=== PATIENT | female | born 1960 | race Caucasian/White ===

== ENCOUNTER 2019-08-19 17:00 | Outpatient (CLI) | payer OTHER, SELFPAY ==
--- NOTE | ~2019-08-19 | MR_ITS ---
EXAMINATION: MR lumbar spine wo con DATE: 08/19/2019 17:27 INDICATION: Lumbago. TECHNIQUE: Magnetic resonance imaging (MRI) of the lumbar spine was performed without intravenous con trast. Sequences included sagittal T2-weighted FSE, sagittal T2-weighted FS FSE, sagittal T1-weighted FSE, and axial T2-weighted FSE. COMPARISON: None FINDINGS: There is 10 degrees levoscoliosis of thoracolumbar spine. There is 3 mm anterolisthesis of L4 on L5. There are Schmorl's nodes at many levels. There is moderately decreased disc height at T10- T11 and T11-T12 and mildly decreased disc height at T12-L1, L2-L3, and L4-L5. The distal spinal cord signal intensity is normal. The conus medullaris is at L1-L2. The following disc levels are specifica lly discussed: L1-L2: The disc is mildly bulging. There is mild bilateral facet joint osteoarthritis. There is no ne ural foraminal stenosis. There is mild central canal stenosis. L2-L3: The disc is bulging. There is mild bilateral facet joint osteoarthritis. There is mild bilater al neural foraminal stenosis. There is mild central canal stenosis. L3-L4: The disc is bulging with superimposed right foraminal extrusion. There is mild bilateral facet joint osteoarthritis. There is mild bilateral neural foraminal stenosis. There is mild central canal stenosis. L4-L5: The disc is bulging and has an annular fissure. There is severe bilateral facet joint osteoart hritis. There is mild bilateral neural foraminal stenosis. There is mild central canal stenosis. L5-S1: The disc is bulging. There is mild bilateral facet joint osteoarthritis. There is mild left ne ural foraminal stenosis. There is mild central canal stenosis. IMPRESSION: 1. Mild lumbar spondylosis. Reviewed, dictated and finalized at location A. TABLE LOADER IMPRESSION: 1. Mild lumbar spondylosis.
== END 2019-08-19 17:01 | disposition home or self-care (01) ==
PROVIDERS: PCP Emergency Medicine
DX: M54.5 Low back pain (principal); M47.816 Spondylosis without myelopathy or radiculopathy, lumbar region
CPT/HCPCS: 72148

== ENCOUNTER 2019-09-26 16:15 | Outpatient (RCR) | payer OTHER, SELFPAY ==
--- NOTE | 2019-09-02 17:32 | PTOPEVAL ---
Thank you for referring this patient to [facility]. Please review, sign, date and return this plan of care [place]. Pt seen for initial eval due to back pain. She requires additional skilled therapy 2x/wk x 6 wk to achieve therapy goal and improve functional mobility. I agree with and certify that the following plan of care is medically necessary. Referring Physician Date Attending Provider: PHYSICIAN NOT ON STAFF Referring Provider: LENI Rose *PT Outpatient Evaluation Start: 09/02/19 15:09 Freq: Status: Active Protocol: Document 09/02/19 15:07 RAIMUNDO (Rec: 09/02/19 15:49 CAP [id number]) Therapy Assessment Status Assessment Status Assessment Status Evaluation Outpatient Past Medical History Neurological History Hx Neurological Disorders No Significant History Cardiovascular History Hx Cardiac Disorders No Significant History Respiratory History Hx Respiratory Disorders No Significant History Gastrointestinal History Hx Gastrointestinal Disorders No Significant History Genitourinary History Hx Genitourinary Disorders No Significant History Musculoskeletal History Hx Back Pain Yes: anterolisthesis L4-5 Hx Degenerative Disk Disease Yes: L1-5, L5-S1 Hx Other Musculoskeletal Disorders Yes: neuropathy Hematological History Hx Hematological Disorders No Significant History Endocrine History Hx Diabetes Yes: with neuropathy Hx Hypothyroidism Yes HEENT History Hx HEENT Disorders No Significant History Integumentary History Hx Skin Disorders No Significant History Reproductive History Hx Reproductive Disorders No Significant History Psychosocial History Hx Anxiety Yes Hx Depression Yes Pain History Has Past Pain Affected Your Daily Life Yes Evaluation Information Problem Diagnosis back pain Onset 08/10/19 Cause fall Additional Evaluation Detail She has a history of back pain She fell on the ice 2 years ago landing her right knee, sprained her left ankle 3 years ago and then fractured 2 years ago. Subjective Information She reports she has had pain Query Text:As Reported By Patient/ since 08/08 when she fell at Family work. She was changing out of her costume when she tripped and fell on her knees 3 times. She landed on her knees that has caused increased right knee pain. She had fluid asperated from her right knee
--- NOTE | 2019-09-05 09:38 | PCPTNOTE ---
Patient called & cancelled scheduled appointment this date due to increase pain
--- NOTE | 2019-09-19 16:19 | PCPTNOTE ---
Patient called & cancelled scheduled appointment this date due to being sick.
--- NOTE | 2019-09-21 17:31 | PCPTNOTE ---
Patient arrived to therapy appointment 25mintue late reporting she was in so much pain but didn't want to miss appointment due to cancelling Thursday's appointment due to increase pain again. Sat and talked to patient for 15minutes about situation educating her on injection process she was receiving tomorrow with the doctor and answered questions the patient had about appointment. Therapist cancelled appointment due to the patient arriving late due to policy and patients pain level. Informed patient to not hesitate to call before driving to appointment when in extreme pain for safety.
--- NOTE | 2019-09-30 14:11 | PCPTNOTE ---
Patient called & cancelled scheduled appointment this date due to flat tire. She rescheduled her re-eval.
--- NOTE | 2019-10-14 12:47 | PCPTNOTE ---
Patient did not show up for scheduled appointment this date. This is her 5th missed appointment.
--- NOTE | 2019-10-18 13:44 | PCPTNOTE ---
Admitting Provider: RACHAEL Rose Attending Provider: PHYSICIAN NOT ON STAFF Patient:Caryn Jeffrey Date of :1960 Patient has not returned for any further treatments since 09/26/2019, therefore she will be discharged from therapy at this time. She attended 5 visits from 09/02/19-10/18/19 and missed 5 visits. The goals have not been achieved. Thank you for referring this patient to [facility]. Please review, sign, date and return this discharge summary [place]. I have been updated about the patient's current status and I agree with discharge from the above service at this time. Referring Physician Date
== END 2019-10-19 10:43 | disposition home or self-care (01) ==
LOC: ANHPT 16:15
PROVIDERS: PCP Emergency Medicine
DX: M54.5 Low back pain (principal)
CPT/HCPCS: 97014; 97110; 97140; 97163; 97530; G0283

== ENCOUNTER 2019-11-15 21:16 | Observation (INO) | payer OTHER, SELFPAY ==
--- NOTE | ~2019-11-15 | CT_ITS ---
EXAMINATION: CT brain wo con EXAM DATE: 11/15/2019 22:16 INDICATION: Syncope. TECHNIQUE: Spiral CT of the head was performed without contrast. Axial, coronal and sagittal images were reviewed. The dose-length product (DLP) for this examination was 605.33 mGy-cm. The exposure w as tailored according to patient size, and iterative reconstruction (ASIR) was used as additional dos e reduction technique. There is no prior study for comparison. FINDINGS: There is an old right caudate head, internal capsular lacunar infarction. There is no acute intraparenchymal hemorrhage. No evidence of intraparenchymal brain mass lesion. No evidence of acu te infarction. Please note that initial head CT has limited sensitivity for small or acute infarctio ns. There is mild periventricular and subcortical hypodensity, nonspecific but probably related to small vessel ischemic disease. There is mild prominence of the sulci and ventricles related to cere bral atrophy. There is intracranial carotid arteriosclerosis. There are no extra-axial collections . There is no mass effect or midline shift. The orbits are unremarkable. Soft tissue is unremarkab le. The visualized sinuses and mastoid air cells are well aerated. IMPRESSION: 1. No acute intracranial findings. 2. Chronic age related findings. 3. Old right lacunar infarction. Reviewed, dictated and finalized at location .
--- NOTE | ~2019-11-15 | US_ITS ---
EXAMINATION: US carotid duplex BI DATE: 11/16/2019 09:37 INDICATION: Syncope. TECHNIQUE: Grayscale, color Doppler, and pulsed Doppler images of the cervical carotid arteries were obtained. The degree of vessel stenosis is placed in one of the following categories: normal, <50%, 5 0-69%, >=70% but less than near-occlusion, near-occlusion, or total occlusion. Note that percent sten osis relative to normal distal artery lumen diameter is indirectly measured from velocity measurement s as described by Harpal, et al. Radiology 2003; 229:340-346. COMPARISON: None. FINDINGS: RIGHT: The right common carotid artery (CCA) peak systolic velocity (PSV) is 70 cm/s. The right internal car otid artery (ICA) PSV is 99 cm/s. The right ICA end-diastolic velocity (EDV) is 33 cm/s. The right IC A/CCA PSV ratio is 1.4. Grayscale and color Doppler images yield an estimate of <50% diameter reducti on from plaque in the ICA. There is antegrade flow in the right vertebral artery. LEFT: The left CCA PSV is 94 cm/s. The left ICA PSV is 152 cm/s. The left ICA EDV is 47 cm/s. The left ICA/ CCA PSV ratio is 1.6. Grayscale and color Doppler images yield an estimate of <50% diameter reduction from plaque in the ICA. There is antegrade flow in the left vertebral artery. IMPRESSION: 1. <50% stenosis in the right internal carotid artery. 2. <50% stenosis in the left internal carotid artery. Reviewed, dictated and finalized at location A.
--- NOTE | ~2019-11-15 | XR_ITS ---
EXAMINATION: XR hand LT 2V EXAM DATE: 11/15/2019 22:19 INDICATION: No known recent injury provided at this time. Pain of the left hand, fifth digit. TECHNIQUE: Left hand frontal, lateral projections obtained and reviewed. There is no prior study for comparison. FINDINGS: Left metacarpal bones are unremarkable. There are no acute fractures or dislocations ident ified. There is no subcutaneous gas. The soft tissue is unremarkable. IV, no other foreign bodies . IMPRESSION: No acute osseous findings. Reviewed, dictated and finalized at location G. IMPRESSION: No acute osseous findings.
--- NOTE | ~2019-11-15 | XR_ITS ---
EXAMINATION: XR chest 1V portable DATE: 11/16/2019 05:55 INDICATION: Near syncope. TECHNIQUE: A single frontal view of the chest was obtained. COMPARISON: None. FINDINGS: There is mild atelectasis at left lung base. No pleural effusion or pneumothorax. The heart size is normal. IMPRESSION: 1. Mild atelectasis at left lung base. Reviewed, dictated and finalized at location A.
[2019-11-15 21:17] VITALS: BP 109/64; PULSE 61; RESP 20; TEMP 37.1; O2SAT 98
[2019-11-15 21:30] VITALS: PULSE 61
--- NOTE | 2019-11-15 21:37 | ECG_ITS ---
Measurements Intervals [place] Rate: 46 P: 23 [place]: 112 QRS: 46 QRSD: 88 T: 235 QT: 492 QTc: 434 Interpretive Statements SINUS BRADYCARDIA WITH SHORT TX INTERVAL ST-T WAVE ABNORMALITY IN DIFFUSE LEADS- CONSIDER ISCHEMIA BASELINE ARTIFACT- I, II, III, AVR, AVF ABNORMAL ECG Electronically Signed On 11-16-2019 7:20:56 CDT by Jam Fung D.O.
--- NOTE | 2019-11-15 21:39 | ED.DIZZY ---
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 Pt states she fell and hit her lip and left hand on a hand rail. Pt states she was able to get up and walk after the fall. Denies head, neck, chest, abd, back, pelvis or any other extremity pain/injury. Pt currently denies any dizziness, only c/o pain on her left hand and lip. Exacerbating factors: nothing Relieving factors: nothing Associated symptoms: denies other symptoms Related Data Home Medications Medication Instructions Recorded Confirmed metformin 500 mg tablet See Rx Instructions PO BID 08/09/19 11/16/19 meloxicam 7.5 mg PO DAILY 11/16/19 11/16/19 tizanidine 4 mg PO TID 11/16/19 11/16/19 Allergies Allergy/AdvReac Type Severity Reaction Status Date / Time hydrocodone Allergy Unknown Unknown Verified 11/15/19 21:33 Penicillins Allergy Unknown Rash Verified 11/15/19 21:33 Review of Systems Review of Systems: All systems reviewed & are unremarkable except as noted in HPI and below Constitutional: Constitutional: Denies body ache(s), Denies chills, Denies excessive sweating, Denies fatigue, Denies fever(s), Denies headache(s), Denies lethargy, Denies malaise, Denies weakness and Denies weight loss Eyes: Eyes: Denies blurry vision, Denies change in vision and Denies loss of vision ENT: Denies dizziness, Denies ear discharge, Denies headache(s), Denies epistaxis, Denies nasal congestion, Denies neck pain, Denies throat swelling and Denies tongue swelling Cardiovascular: Cardiovascular: Denies chest pain, Denies chest pain at rest, Denies chest pain with activity, Denies diaphoresis, Denies rapid heart rate, Denies edema, Denies irregular heart rhythm, Denies lightheadedness, Denies palpitations, Denies dyspnea and Denies dyspnea on exertion Respiratory: Respiratory: Denies chest congestion, Denies cough, Denies hemoptysis, Denies dyspnea and Denies dyspnea on exertion Gastrointestinal: Gastrointestinal: Denies abdominal pain, Denies melena, Denies hematochezia, Denies diarrhea, Denies nausea, Denies vomiting and Denies hematemesis Musculoskeletal: Musculoskeletal: Denies abnormal gait, Denies deformity, Denies joint swelling, Denies limited range of motion, Denies neck pain and Denies numbness Neurologic: Denies Abnormal speech present, Denies abnormal gait, Denies confusion, Denies headache(s), Denies focal weakness, Denies loss of vision, Denies numbness, Denies Other visual disturbances, Denies Sensory deficit (Neuro) and Denies weakness Psychiatric: Psychiatric: Denies confusion, Denies depression, Denies auditory hallucinations, Denies homicidal ideation and Denies suicidal ideation Endocrine: Endocrine: Denies cold intolerance, Denies excessive sweating, Denies fatigue, Denies heat intolerance and Denies palpitations Hematologic/Lymphatic: Hematologic/Lymphatic: Denies easy bleeding and Denies easy bruising Allergic/Immunologic: Allergic/Immunologic: Denies lip swelling, Denies throat swelling and Denies tongue swelling PMFSH Social History Social History Smoking packs per day: 0.25 Smoking cigarettes per day: 5.0 Years smoked: 35 Smoking pack-years: 8.75 Smoking status: Current every day smoker Tobacco type: cigarettes Smoking end date: 07/20/16 Alcohol intake: never Substance use: never Gender identity (if verbalized by the patient): Female Spiritual care concerns: No Agree to blood products: Yes Exam Const: General: cooperative, healthy appearing, comfortable, no acute distress, well developed, alert and awake; No confusion Orientation/consciousness: oriented to person, oriented to place, oriented to time, patient oriented x3 and No confusion Limitations: n
[2019-11-15 22:16] LABS: Basophils Absolute Auto 0.1 K/mm3 (0.0-0.1); Basophils Percent Auto 0.8 % (0.2-1.2); Eosinophils Absolute Auto 0.3 K/mm3 (0-0.3); Eosinophils Percent Auto 4.8 % (0-4.4); Hematocrit 40.2 % (37.0-47.0); Hemoglobin 13.6 g/dL (12.0-15.0); Immature Granulocyte Absolute 0.02 K/mm3 (0.00-0.031); Immature Granulocyte Percent A 0.3 % (0-0.5); Immature Platelet Fraction Pct 5.9 % (0.9-11.2); Lymphocytes Percent Auto 30.9 % (18.3-44.2); Mean Corpuscular HGB Conc 33.8 g/dl (32-36); Mean Corpuscular Hemoglobin 32.9 pg (26-34); Mean Corpuscular Volume 97.3 fl (80-100); Mean Platelet Volume 11.1 fl (7.4-10.4); Monocytes Absolute Auto 0.8 K/mm3 (0.1-0.6); Monocytes Percent Auto 10.5 % (2.6-8.5); Neutrophils Absolute Auto 3.8 K/mm3 (1.3-6.7); Neutrophils Percent Auto 52.7 % (45.5-73.1); Platelet Count Result 109 k/mm3 (150-375); Red Blood Count 4.13 M/mm3 (4.2-5.4); Red Cell Distribution Width 13.6 % (11.5-14.5); White Blood Count 7.1 K/mm3 (4.5-10.0)
[2019-11-15 22:25] LABS: INR 1.2; Prothrombin Time 14.5 Seconds (11.1-14.7)
[2019-11-15 22:26] LABS: Partial Thromboplastin Time 30.7 SECONDS (22.3-36.8)
[2019-11-15 22:30] LABS: Blood Urea Nitrogen 29 mg/dL (7-17); Carbon Dioxide 26 mmol/L (22-30); Chloride 94 mmol/L (98-107); Estimated CRCL calculation 27 ml/min; Estimated Glomerular Filt Rate 26; Glucose 362 mg/dL (65-105); Potassium 4.5 mmol/L (3.4-5.0); Sodium 130 mmol/L (137-145)
[2019-11-15 22:42] LABS: Troponin I 0.024 ng/mL (0.000-0.034)
[2019-11-15] MEDS: TETANUS,DIPHTHERIA,AC PERTUSSIS ADULT (0.5 ML) BOOSTRIX (23:09)
[2019-11-16] VITALS (11 sets, daily range): BP systolic 96–133; BP diastolic 54–78; PULSE 50–70; RESP 13–20; TEMP 36.1–36.7; O2SAT 97–100; BMI 28.9; BMI 30.4; BMI 29.1
[2019-11-16] MEDS: SODIUM CHLORIDE 0.9% IV 1,000 ML 999 ML IV CONT (00:30)
[2019-11-16 02:06] LABS: Troponin I 0.025 ng/mL (0.000-0.034)
--- NOTE | 2019-11-16 02:13 | ECG_ITS ---
Measurements Intervals [place] Rate: 52 P: 28 [place]: 124 QRS: 16 QRSD: 90 T: 164 QT: 453 QTc: 423 Interpretive Statements SINUS BRADYCARDIA LEFT VENTRICULAR HYPERTROPHY AND ST-T CHANGE ST-T WAVE ABNORMALITY IN ANTEROLAT/LAT LEADS- CONSIDER ISCHEMIA BASELINE ARTIFACT- I, II, AVR, AVL, AVF ABNORMAL ECG Electronically Signed On 11-16-2019 9:58:57 CDT by Jam Fung D.O.
--- NOTE | 2019-11-16 02:52 | ECHO_ITS ---
Patient Info Name: Caryn Jeffrey Age: 59 years : 1960 Gender: Female Ht: 64 in Wt: 177 lbs BSA: 1.93 m2 HR: 60 bpm BP: 133 / 73 mmHg Heart Rhythm: Bradycardia Technical Quality: Good Exam Date: 11/16/2019 9:53 AM Exam Location: [facility] Patient Status: Inpatient Admit Date: 11/16/2019 Staff Ordering Physician: Edgar Flaherty MD Core Man: Cristiano Marte RDCS Attending Provider: Edgar Flaherty MD Referring Physician: Reynold MATTHEWS; Exam Type: CA echo doppler color flow Study Info Indications R55 - Syncope and collapse R00.1 - Bradycardia, unspecified Complete two-dimensional, color flow and Doppler transthoracic echocardiogram is performed. History/Risk Factors Bradycardia w/ near syncope; CKD III, DM2, HTN. Summary 1. Left ventricular chamber dimension is normal. 2. Left ventricular systolic function is normal, estimated at 65-70%. 3. There is moderate asymmetric septal increased left ventricular wall thickness at 1.6 cm compared to posterior wall thickness at 1.2 cm suggestive of hypertrophic cardiomyopathy. 4. The left ventricular diastolic function is grade I diastolic dysfunction. 5. E/e' 9 is minimally elevated. 6. There is mild aortic valve sclerosis. 7. The mitral valve has mildly calcified annulus. Left Ventricle There is moderate asymmetric septal increased left ventricular wall thickness at 1.6 cm compared to posterior wall thickness at 1.2 cm suggestive of hypertrophic cardiomyopathy. E/e' 9 is minimally elevated. Left ventricular chamber dimension is normal. Left ventricular systolic function is normal, estimated at 65-70%. The left ventricular diastolic function is grade I diastolic dysfunction. Right Ventricle Right ventricular chamber dimension is normal. Right ventricular systolic function is normal. Left Atria Left atrial chamber dimension is normal. Right Atria Right atrial chamber dimension is normal. Aortic Valve The aortic valve is trileaflet. There is mild aortic valve sclerosis. There is no aortic valve stenosis. There is no aortic valve regurgitation. Pulmonic Valve There is no pulmonic regurgitation. Mitral Valve The mitral valve has mildly calcified annulus. There is no mitral valve stenosis. There is no mitral valve regurgitation. Tricuspid Valve There is no tricuspid valve regurgitation. Pericardium/Pleural There is trivial pericardial effusion. Inferior Vena Cava Normal inferior vena cava with >50% collapse upon inspiration consistent with normal right atrial pressure, 5 mmHg. Aorta The aortic root size at the sinus of Valsalva is normal. Left Ventricular Outflow Tract Name Value Normal LVOT 2D LVOT Diameter 1.9 cm LVOT Doppler LVOT Peak Gradient 6 mmHg LVOT Mean Gradient 3 mmHg LVOT VTI 21 cm LVOT VTI/AV VTI Ratio 0.6 LVOT Stroke Volume 58 ml LVOT CO 3.7 l/min LVOT CI 1.9 l/mi
[2019-11-16 04:41] LABS: Basophils Percent Auto 0.7 % (0.2-1.2); Eosinophils Absolute Auto 0.3 K/mm3 (0-0.3); Eosinophils Percent Auto 5.9 % (0-4.4); Hematocrit 38.2 % (37.0-47.0); Hemoglobin 12.7 g/dL (12.0-15.0); Immature Granulocyte Absolute 0.01 K/mm3 (0.00-0.031); Immature Granulocyte Percent A 0.2 % (0-0.5); Immature Platelet Fraction Pct 6.6 % (0.9-11.2); Lymphocytes Absolute Auto 1.94 K/mm3 (0.9-3.2); Lymphocytes Percent Auto 33.6 % (18.3-44.2); Mean Corpuscular HGB Conc 33.2 g/dl (32-36); Mean Corpuscular Hemoglobin 32.8 pg (26-34); Mean Corpuscular Volume 98.7 fl (80-100); Mean Platelet Volume 11.6 fl (7.4-10.4); Monocytes Absolute Auto 0.7 K/mm3 (0.1-0.6); Monocytes Percent Auto 11.3 % (2.6-8.5); Neutrophils Absolute Auto 2.8 K/mm3 (1.3-6.7); Neutrophils Percent Auto 48.3 % (45.5-73.1); Platelet Count Result 91 k/mm3 (150-375); Red Blood Count 3.87 M/mm3 (4.2-5.4); Red Cell Distribution Width 13.7 % (11.5-14.5); White Blood Count 5.8 K/mm3 (4.5-10.0)
[2019-11-16 04:56] LABS: Blood Urea Nitrogen 33 mg/dL (7-17); Calcium 8.6 mg/dL (8.4-10.2); Carbon Dioxide 29 mmol/L (22-30); Chloride 93 mmol/L (98-107); Estimated CRCL calculation 27 ml/min; Estimated Glomerular Filt Rate 24; Glucose 419 mg/dL (65-105); Magnesium 1.7 mg/dL (1.6-2.3); Potassium 4.2 mmol/L (3.4-5.0); Sodium 130 mmol/L (137-145)
[2019-11-16 05:03] LABS: Troponin I 0.021 ng/mL (0.000-0.034)
--- NOTE | 2019-11-16 05:25 | PM.IMHP ---
H&P: HPI History of Present Illness Chief complaint: Near Syncope, Bradycardia Narrative: This is a pleasant 59 year old Diabetic female with known history of HTN, depression, and hypothyroidism who presented to the hospital with a complaint of near syncope and falling at home. She reports that she has chronic back pain secondary to bulging discs and has been going to the pain clinic to get treatment for same. She was walking yesterday when suddenly she felt very dizzy like she was going to pass out. She immediately reached out to grab a railing but missed it and fell forward. The next thing she knew she was face down on the ground. She struck her face and left hand on the railing on the way down. She doesn't believe that she actually passed out and denies any tongue biting or loss of urine. She denies any chest pain or shortness of breath before falling. She had a similar episode of falling the day before while ambulating but did not seek medical attention at that time. She denies any history of heart disease or arrythmias. In the ER this evening the patient was evaluated and found to have sinus bradycardia with her heart rate in the 50s. Her upper lip was glued in the ER tonight as she sustained a laceration on falling. ER provider has consulted Cardiology, Dr. Fung. EKG demonstrated Sinus bradycardia w/ short CO interval and flipped T waves in lateral-inferior leads. Tonight she denies any significant chest pain, shortness of breath, fevers, cough, blurry vision, double vision, slurred speech, swallowing difficulty, abdominal pain, dysuria, hematuria, nausea, vomiting, diarrhea, or rectal bleeding. She does report that she has had a recent bout of shingles on the right side of her chest wall. No other complaints. Review of Systems Review of Systems: All systems reviewed & are unremarkable except as noted in HPI and below PMFSH Past Medical History Medical History (Updated 11/16/19 @ 05:47 by Edgar Flaherty MD) Chronic kidney disease Chronic low back pain CKD stage 3 due to type 2 diabetes mellitus Depression Diabetes mellitus HTN (hypertension) with goal to be determined Hypothyroidism PVD (peripheral vascular disease) Surgical History Surgical History (Updated 11/16/19 @ 05:35 by Edgar Flaherty MD) History of vascular surgery Family History Family History (Updated 11/16/19 @ 05:35 by Edgar Flaherty MD) Mother Breast cancer Other Family history of chronic obstructive pulmonary disease Family history of malignant neoplasm Social History Social History Smoking packs per day: 0.25 Smoking cigarettes per day: 5.0 Years smoked: 35 Smoking pack-years: 8.75 Smoking status: Current every day smoker Tobacco type: cigarettes Smoking end date: 07/20/16 Alcohol intake: never Substance use: never Gender identity (if verbalized by the patient): Female Spiritual care concerns: No Agree to blood products: Yes Meds Home Medications and Allergies Home Medications Medication Instructions Recorded Confirmed Type fluticasone propionate 50 2 spray NASAL DAILY #50 ml NS 05/20/19 11/16/19 Rx mcg/actuation nasal spray,suspension albuterol sulfate 2 puff INHALATION QID #6.7 gm 07/18/19 11/16/19 Rx metformin 500 mg tablet See Rx Instructions PO BID 08/09/19 11/16/19 History citalopram 20 mg tablet See Rx Instructions .ROUTE 09/16/19 11/16/19 Rx .COMPLEX #30 tablet gabapentin 300 mg capsule See Rx Instructions .ROUTE 10/04/19 11/16/19 Rx .COMPLEX #270 cap levothyroxine 125 mcg tablet 125 mcg PO DAILY #30 tablet 10/13/19 11/16/19 Rx tramadol 50 mg tablet 50 mg PO Q6H PRN #20 tablet 10/26/19 11/16/19 Rx meloxicam 7.5 mg PO DAILY 11/16/19 11/16/19 History tizanidine 4 mg PO TID 11/16/19 11/16/19 History Allergies Allergy/AdvReac Type Severity Reaction Status Date / Time hydrocodone Allergy Unknown Unknown Verified 11/15/19 21:
[2019-11-16] MEDS: ALBUTEROL SULFATE (*SP) AEROSOL 1 PUFF 2 PUFF INHALATION (06:20)
[2019-11-16] MEDS: ACETAMINOPHEN 325 MG TABLET 650 MG PO (06:41)
[2019-11-16] MEDS: SODIUM CHLORIDE 0.9% IV 1,000 ML 100 ML IV CONT (06:41)
--- NOTE | 2019-11-16 08:22 | PM.CNCAR ---
Assessment and Plan Assessment and plan (1) Tobacco dependence: Code(s): F17.200 - Nicotine dependence, unspecified, uncomplicated Status: Acute Assessment and Plan: Counseled regarding smoking cessation. (2) CKD stage 3 due to type 2 diabetes mellitus: Code(s): E11.22 - Type 2 diabetes mellitus with diabetic chronic kidney disease; N18.3 - Chronic kidney disease, stage 3 (moderate) Status: Chronic Assessment and Plan: CKD stage III-IV. (3) PVD (peripheral vascular disease): Code(s): I73.9 - Peripheral vascular disease, unspecified Status: Chronic (4) Near syncope: Code(s): R55 - Syncope and collapse Status: Acute Assessment and Plan: Probably orthostatic related in setting of low normal BP on pain medications, caffeine intake and in standing position. Advise to keep well hydrated. Continue telemetry monitoring for next 24 hours. Obtain echo. Will need 30 day event monitor as an outpatient. (5) Bradycardia: Code(s): R00.1 - Bradycardia, unspecified Status: Acute History of Present Illness History of Present Illness Consult date/time: 11/16/19 08:22 Reason for consult: Near-syncope 59 yr old woman with a history of PAD s/p PTCA of left leg with Dr. Yung Santana in 2018, DM, smoking who presents to hospital after a near syncopal episode with fall. She was walking yesterday when suddenly she felt very dizzy like she was going to pass out. She immediately reached out to grab a railing but missed it and fell forward. The next thing she knew she was face down on the ground. She struck her face and left hand and right knee on the railing on the way down. She had dizziness just prior to the event. She doesn't believe that she actually passed out and denies any tongue biting or loss of urine. She denies any chest pain or shortness of breath before falling. She had a similar episode of falling last week but did not hurt herself in the fall while ambulating. She smokes 1 ppd down to just less than 1/2 ppd recently. States she is limited at walking 1 block due to bulging discs causing lower back pain radiating down her legs. She has been treated with Meloxicam, Tramadol and Tizanidine for pain at pain clinic. Denies chest pain, sob, orthopnea, edema. No dizziness currently. Telemetry shows HR is OK in 50's-60 bpm range. BP was low on presentation at 95 systolic. [address]KG showed some ST abnormalities with HR 46 bpm. She drinks 3 cups of coffee and 3 glasses of water a day. She admits to dizziness while standing or walking in the past. Reason For Visit: Near Syncope, Bradycardia Review of Systems Review of Systems: All systems reviewed & are unremarkable except as noted in HPI and below Constitutional: Constitutional: Reports as per HPI, Denies chills and Denies fatigue Cardiovascular: Cardiovascular: Reports as per HPI, Denies chest pain, Denies leg edema and Reports lightheadedness Respiratory: Respiratory: Reports as per HPI and Denies dyspnea Gastrointestinal: Gastrointestinal: Reports as per HPI and Denies abdominal pain Genitourinary: Genitourinary: Reports as per HPI and Denies dysuria Neurologic: Reports as per HPI and Denies Abnormal speech present [facility] Past Medical History Medical History (Updated 11/16/19 @ 05:47 by Edgar Flaherty MD) Chronic kidney disease Chronic low back pain CKD stage 3 due to type 2 diabetes mellitus Depression Diabetes mellitus HTN (hypertension) with goal to be determined Hypothyroidism PVD (peripheral vascular disease) Surgical History Surgical History (Updated 11/16/19 @ 05:35 by Edgar Flaherty MD) History of vascular surgery Family History Family History (Updated 11/16/19 @ 05:35 by Edgar Flaherty MD) Mother Breast cancer Other Family history of chronic obstructive pulmonary disease Family history of malignant neoplasm Social History Social History (Reviewed 11/16/19 @ 05:34 by Edgar Salazar
[2019-11-16 08:45] LABS: Glucose Point of Care 422 (65-105)
[2019-11-16] MEDS: INSULIN ASPART (*BKC) 100 UNITS/ML 10 UNITS SUB-Q (08:52)
[2019-11-16] MEDS: LEVOTHYROXINE SODIUM 125 MCG TABLET PO (08:54)
[2019-11-16] MEDS: FLUTICASONE PROPIONATE 0.05% NA SPR 16 GM BTL (*BKC) 2 SPRAY NASAL (08:54)
--- NOTE | 2019-11-16 10:14 | PM.IMPN ---
Subjective Date/time seen: 11/16/19 10:14 Interval history: Admitted 11/14 due to dizziness followed by brief syncope during which she fell and lacerated upper lip. Also abrasion right knee. 11/15 Only complaint at present is discomfort in the right knee. History of osteoarthritis. History of sciatica in the right leg. History of bulging disc lumbar. Review of Systems Review of Systems: All systems reviewed & are unremarkable except as noted in HPI and below Objective Data Vital Signs Vital Signs: Vital Signs - 24 hr 11/15/19 21:17 11/15/19 21:30 11/16/19 00:35 Temperature 98.8 F Pulse Rate 61 61 50 L Respiratory Rate 20 13 Blood Pressure 109/64 96/66 L Pulse Oximetry 98 98 11/16/19 01:10 11/16/19 04:00 11/16/19 07:43 Temperature 98.0 F 98.0 F 96.9 F L Pulse Rate 59 L 56 L 65 Respiratory Rate 20 20 16 Blood Pressure 106/65 120/68 133/73 Pulse Oximetry 100 97 98 11/16/19 08:50 11/16/19 08:53 11/16/19 08:54 Temperature 96.9 F L Pulse Rate 57 L Respiratory Rate Blood Pressure 131/78 127/78 112/68 Pulse Oximetry 99 Intake/Output Intake/Output: Intake & Output 11/13/19 11/14/19 11/15/19 11/16/19 23:59 23:59 23:59 23:59 Intake Total 100 740 Balance 100 740 Meds/Results Medications: Active Medications Generic Name Dose Route Start Last Admin Trade Name Freq PRN Reason Stop Dose Admin Acetaminophen 650 mg 11/16/19 02:50 11/16/19 06:41 Tylenol Tablet PO 650 mg Q4H PRN Administration Mild Pain (1-3) or Fever Albuterol 2 puff 11/16/19 08:00 11/16/19 06:20 Proventil Hfa INHALATION 2 puff QIDRT BRAYAN Administration Dextrose 12.5 gm 11/16/19 02:51 Dextrose 50% Syringe IV PUSH PRN PRN Hypoglycemia Protocol Fluticasone Propionate 2 spray 11/16/19 09:00 11/16/19 08:54 Flonase 0.05% Nasal [place] NASAL 2 spray DAILY BRAYAN Administration Glucagon 1 mg 11/16/19 02:51 Glucagon For Inj IM PRN PRN Hypoglycemia Protocol Glucose 15 gm 11/16/19 02:51 Glutose 15 PO PRN PRN Hypoglycemia Protocol Sodium Chloride 1,000 mls @ 100 mls/hr 11/16/19 02:50 11/16/19 06:41 Normal Saline Iv IV CONT 100 mls/hr .Q10H BRAYAN Administration Dextrose 1,000 mls @ 100 mls/hr 11/16/19 02:51 Dextrose 5% 1,000 Ml IVPB PRN PRN Hypoglycemia Protocol Insulin Aspart 3 - 6 units 11/16/19 12:00 Novolog SUB-Q TIDWM BRAYAN Protocol Levothyroxine Sodium 125 mcg 11/16/19 06:30 11/16/19 08:54 Synthroid PO 125 mcg DAILY@0630 BRAYAN Administration Radiology Results: ITS Impressions Head CT 11/15/19 22:25 IMPRESSION: 1. No acute intracranial findings. 2. Chronic age related findings. 3. Old right lacunar infarction. Hand X-Ray 11/15/19 22:27 IMPRESSION: No acute osseous findings. Chest X-Ray 11/16/19 06:43 IMPRESSION: 1. Mild atelectasis at left lung base. Carotid Doppler Study 11/16/19 09:38 IMPRESSION: 1. <50% stenosis in the right internal carotid artery. 2. <50% stenosis in the left internal carotid artery. Labs Labs: Laboratory Results - last 24 hr 11/15/19 11/15/19 11/15/19 22:06 22:06 22:06 WBC 7.1 RBC 4.13 L Hgb 13.6 Hct 40.2 MCV 97.3 MCH 32.9 MCHC 33.8 RDW 13.6 Plt Count 109 L MPV 11.1 H Immature Gran % (Auto) 0.3 Neut % (Auto) 52.7 Lymph % (Auto) 30.9 Turner % (Auto) 10.5 H Eos % (Auto) 4.8 H Baso % (Auto) 0.8 Lymph # (Auto) 2.20 Turner # (Auto) 0.8 H Eos # (Auto) 0.3 Baso # (Auto) 0.1 Abs Immat Gran (auto) 0.02 Absolute Neuts (auto) 3.8 Absolute Nucleated RBC 0.0 Nucleated RBC % 0.0 % Immature Plt Fraction 5.9 PT 14.5 INR 1.2 APTT 30.7 Sodium 130 L Potassium 4.5 Chloride 94 L Carbon Dioxide 26 BUN 29 H Creatinine 2.00 H Estim Creat Clear Calc 27 Estimated GFR 26 L Gluco
[2019-11-16 11:32] LABS: Glucose Point of Care 388 (65-105)
[2019-11-16] MEDS: CITALOPRAM HYDROBROMIDE 20 MG TABLET BY MOUTH (12:06)
[2019-11-16] MEDS: INSULIN ASPART (*BKC) 100 UNITS/ML SUB-Q (12:06)
--- NOTE | 2019-11-16 13:53 | PC.NURSE ---
Pat was transferred from Room 200 to room 259. Patient alert and oriented resting in bed with no complaints at this time. Will continue to monitor patient.
--- NOTE | 2019-11-16 15:14 | PM.DS ---
DS: Diagnosis Admitting Diagnosis Admitting Diagnosis: Syncope and collapse Discharge Diagnosis (1) Near syncope: Code(s): R55 - Syncope and collapse Status: Acute Assessment and Plan: Likely due to medications Cardiac arrhythmia unlikely 30 day monitor Take meds with food (2) Symptomatic bradycardia: Code(s): R00.1 - Bradycardia, unspecified Status: Acute Assessment and Plan: Unlikely the cause of her syncope (3) CKD stage 3 due to type 2 diabetes mellitus: Code(s): E11.22 - Type 2 diabetes mellitus with diabetic chronic kidney disease; N18.3 - Chronic kidney disease, stage 3 (moderate) Status: Chronic Assessment and Plan: Stable. Cr. appears to be at baseline. Monitor renal function, Avoid nephrotoxic agents, renally dose medications. (4) Diabetes mellitus: Qualifiers: Chronic kidney disease stage: stage 3 (moderate) Diabetes mellitus complication detail: with chronic kidney disease Diabetes mellitus complication status: with kidney complications Diabetes mellitus chcf insulin use: without intermediate accountant use Diabetes mellitus type: type 2 Qualified Code(s): E11.22 - Type 2 diabetes mellitus with diabetic chronic kidney disease; N18.3 - Chronic kidney disease, stage 3 (moderate) Code(s): E11.9 - Type 2 diabetes mellitus without complications Status: Chronic Assessment and Plan: Accuchecks, SSI coverage. Hypoglycemic protocol while hospitalized Januvia 50 mg daily upon discharge (5) Hypothyroidism: Qualifiers: Hypothyroidism type: unspecified Qualified Code(s): E03.9 - Hypothyroidism, unspecified Code(s): E03.9 - Hypothyroidism, unspecified Status: Chronic Assessment and Plan: Continue levothyroxine. WNL TSH w/ reflex T4. (6) HTN (hypertension) with goal to be determined: Code(s): I10 - Essential (primary) hypertension Status: Chronic Assessment and Plan: Stable. Monitor blood pressure. The patient is not currently on any antihypertensive medications. (7) Depression: Qualifiers: Depression Type: unspecified Qualified Code(s): F32.9 - Major depressive disorder, single episode, unspecified Code(s): F32.9 - Major depressive disorder, single episode, unspecified Status: Chronic Assessment and Plan: Resume celexa when appropriate. (8) PVD (peripheral vascular disease): Code(s): I73.9 - Peripheral vascular disease, unspecified Status: Chronic Assessment and Plan: stable. (9) Shingles: Qualifiers: Herpes zoster complications: without complications Qualified Code(s): B02.9 - Zoster without complications Code(s): B02.9 - Zoster without complications Status: Resolved Assessment and Plan: Resolving - Rash is now dried. Continue pain control as needed. (10) Back pain: Qualifiers: Back pain laterality: right Back pain location: low back pain Chronicity: acute Sciatica laterality: bilateral sciatica Sciatica presence: with sciatica Qualified Code(s): M54.42 - Lumbago with sciatica, left side; M54.41 - Lumbago with sciatica, right side Code(s): M54.9 - Dorsalgia, unspecified Status: Chronic Assessment and Plan: Resume home pain medications (11) Tobacco dependence: Code(s): F17.200 - Nicotine dependence, unspecified, uncomplicated Status: Acute Assessment and Plan: Pt aware of need to quit DS: Summary Time Spent with Patient Time attestation: Total time spent providing and/or coordinating discharge services: 38 min Exam Const: General: cooperative, no acute distress, alert and awake Nutritional Appearance: overweight Orientation/consciousness: patient oriented x3 HENMT: Head: normal to inspection General nose exam: Normal external nose present Face and sinus: normal facial exam Mouth: No lip normal (Laceration of upper lip++) and
== END 2019-11-16 16:05 | disposition home or self-care (01) ==
LOC: ANHED 11-16 00:21 → ANHIMU 11-16 01:21 → ANH2MED 11-16 15:17 → ANHIMU 11-18 10:53
PROVIDERS: Admitting Provider Family Medicine; Emergency Provider Emergency Medicine; PCP Emergency Medicine; Visit Provider Internal Medicine
DX: R55 Syncope and collapse (principal); S01.511A Laceration without foreign body of lip, initial encounter; W19.XXXA Unspecified fall, initial encounter; R00.1 Bradycardia, unspecified; E11.22 Type 2 diabetes mellitus with diabetic chronic kidney disease; I12.9 Hypertensive chronic kidney disease with stage 1 through stage 4 chronic kidney disease, or unspecified chronic kidney disease; N18.3 Chronic kidney disease, stage 3 (moderate); E11.51 Type 2 diabetes mellitus with diabetic peripheral angiopathy without gangrene; E03.9 Hypothyroidism, unspecified; F17.210 Nicotine dependence, cigarettes, uncomplicated; F32.9 Major depressive disorder, single episode, unspecified; B02.9 Zoster without complications; M54.42 Lumbago with sciatica, left side; M54.41 Lumbago with sciatica, right side; Z23 Encounter for immunization; Z79.84 Long term (current) use of oral hypoglycemic drugs; Z79.899 Other long term (current) drug therapy
CPT/HCPCS: 12011; 36415; 70450; 71045; 73120; 80048; 83735; 84443; 84484; 85025; 85055; 85610; 85730; 90471; 90715; 93005; 93306; 93880; 94640; 96365; 96366; 99285; A9270; G0378; G0379; J0131; J1815; J7030

== ENCOUNTER 2020-08-06 14:26 | Outpatient (CLI) | payer OTHER, SELFPAY ==
[2020-08-06 15:22] LABS: Alanine Aminotransferase 18 U/L (4-35); Alkaline Phosphatase 87 U/L (38-126); Anion Gap 6 mmol/L (8-16); Aspartate Amino Transferase 26 U/L (14-36); Bilirubin,Total 0.7 mg/dL (0.2-1.3); Blood Urea Nitrogen 37 mg/dL (7-17); Calcium 9.4 mg/dL (8.4-10.2); Carbon Dioxide 23 mmol/L (22-30); Chloride 104 mmol/L (98-107); Cholesterol 295 mg/dL (0-200); Estimated Glomerular Filt Rate 31; Glucose 215 mg/dL (65-105); HDL Direct 52 mg/dL; Potassium 4.7 mmol/L (3.4-5.0); Sodium 133 mmol/L (137-145); Triglycerides 293 mg/dL (<150); Uric Acid 7.6 mg/dL (2.5-7.5)
[2020-08-06 15:32] LABS: LDL Cholesterol Direct 181 mg/dL
== END 2020-08-06 14:27 | disposition home or self-care (01) ==
PROVIDERS: PCP Emergency Medicine; Visit Provider Emergency Medicine
DX: E03.9 Hypothyroidism, unspecified (principal); E11.22 Type 2 diabetes mellitus with diabetic chronic kidney disease; M10.9 Gout, unspecified; N18.30 Chronic kidney disease, stage 3 unspecified
CPT/HCPCS: 36415; 80053; 80061; 84443; 84550

== ENCOUNTER 2022-07-22 17:59 | Emergency (ER) | payer OTHER, SELFPAY ==
[2022-07-22 18:06] VITALS: BP 172/86; PULSE 69; RESP 16; TEMP 35.9; O2SAT 99
--- NOTE | 2022-07-22 18:06 | ED.URI ---
HPI - URI/Sore Throat General Chief Complaint: Upper Respiratory Infection Stated Complaint: headache Time Seen by Provider: 07/22/22 18:06 Source: patient Mode of arrival: ambulatory Limitations: no limitations History of Present Illness HPI Narrative: Lanny is a 61-year-old female patient presenting to the clinic today with complaints of a headache, sinus pressure, ear congestion, and sore throat for over a week. She reports she just finished up a 5 day course of azithromycin and states that she is not really feeling better. MD elicited complaint: sore throat and nasal congestion Related Data Allergies Allergy/AdvReac Type Severity Reaction Status Date / Time hydrocodone Allergy Unknown Unknown Verified 05/24/21 11:28 Penicillins Allergy Unknown Rash Verified 05/24/21 11:28 Review of Systems Review of Systems: Pertinent positives per HPI. Patient denies any fever, chills, rash, headache, visual changes, dizziness, cough, shortness of breath, chest pain, palpitations, nausea, vomiting, diarrhea, constipation, abdominal pain, or any urinary issues. [facility] Past Medical History Medical History Chronic kidney disease Chronic low back pain CKD stage 3 due to type 2 diabetes mellitus Depression Diabetes mellitus HTN (hypertension) with goal to be determined Hypothyroidism PVD (peripheral vascular disease) Surgical History Surgical History History of vascular surgery Family History Family History Mother Breast cancer Other Family history of chronic obstructive pulmonary disease Family history of malignant neoplasm Social History Social History Smoking packs per day: 0.25 Smoking cigarettes per day: 5.0 Years smoked: 35 Smoking pack-years: 8.75 Smoking status: Current every day smoker Tobacco type: cigarettes Smoking end date: 07/20/16 Alcohol intake: never Substance use: never Gender identity (if verbalized by the patient): Female Spiritual care concerns: No Agree to blood products: Yes Comments At the time of my signature, I reviewed and agree with the nursing past medical, surgical, social, and family history. There is no relevant family history pertinent to the patient complaint. Exam Narrative: General: Well-developed, well nourished, in no apparent distress Head: Normocephalic, atraumatic Eyes: Pupils equally round and reactive to light bilaterally, EOM intact, sclera and conjunctive clear, no discharge, lids normal Ears: TMs intact , dull, bulging with some fluid noted behind the TM, ear canals clear, no drainage, grossly hearing normal. Nose: Nares patent, clear nasal discharge, mild inflammation, no sinus tenderness. Mouth: Oral pharynx without lesions or masses, good dentition, MMM. postnasal drip Neck: Supple, trachea midline, no enlargement of anterior or posterior cervical nodes, no thyroid masses or goiter palpable. Cardio: Regular rate and rhythm, s1 and s2 normal, no murmur appreciated. Resp: Clear to auscultation bilaterally, no rhonchi, rales, wheezing or rubs Course Course Emergency Course: Portions of this record may have been created with voice recognition software. Level of Care: Express Care Visit Vital Signs Vital signs: Vital signs reviewed MDM - URI/Sore Throat MDM Narrative Medical decision making narrative: At the time of visit patient is resting comfortably on the exam table. I suspect patient has Eustachian tube dysfunction, serous otitis, and pharyngitis. She just finished up her prescription for azithromycin. I will place her on a prescription for some prednisone to help dry up secretions. Supportive measures were discussed with the patient she voiced understanding of discharge instructions a
== END 2022-07-22 18:25 | disposition home or self-care (01) ==
PROVIDERS: Emergency Provider Nurse Practitioner Family; PCP Emergency Medicine
DX: H69.93 Unspecified Eustachian tube disorder, bilateral (principal); H65.03 Acute serous otitis media, bilateral; J02.9 Acute pharyngitis, unspecified; Z87.891 Personal history of nicotine dependence; E11.22 Type 2 diabetes mellitus with diabetic chronic kidney disease; N18.30 Chronic kidney disease, stage 3 unspecified; E11.51 Type 2 diabetes mellitus with diabetic peripheral angiopathy without gangrene; E03.9 Hypothyroidism, unspecified
CPT/HCPCS: 99213; G0463

== ENCOUNTER 2022-08-11 18:01 | Emergency (ER) | payer OTHER, SELFPAY ==
[2022-08-11 18:13] VITALS: BP 150/86; PULSE 68; RESP 16; TEMP 36.3; O2SAT 98
--- NOTE | 2022-08-11 18:36 | ED.URI ---
HPI - URI/Sore Throat General Chief Complaint: Upper Respiratory Infection Stated Complaint: Sinus Time Seen by Provider: 08/11/22 18:36 Source: patient, RN notes reviewed and old records reviewed Mode of arrival: ambulatory Limitations: no limitations History of Present Illness HPI Narrative: 61-year-old female presents to the [facility] with complaints of sinus congestion since June, over 1 month Has been on steroids Has well as a Z-Guy Reports using Flonase daily Related Data Allergies Allergy/AdvReac Type Severity Reaction Status Date / Time hydrocodone Allergy Unknown Unknown Verified 08/11/22 18:11 Penicillins Allergy Unknown Rash Verified 08/11/22 18:11 Review of Systems Review of Systems: All systems reviewed & are unremarkable except as noted in HPI and below Constitutional: Constitutional: Reports no additional constitutional complaints Eyes: Eyes: Reports no additional eye complaints ENT: Reports as per HPI and Reports nasal congestion Cardiovascular: Cardiovascular: Reports no additional cardiovascular complaints, Denies chest pain and Denies dyspnea Respiratory: Respiratory: Reports no additional respiratory complaints, Denies chest congestion, Denies cough and Denies dyspnea Gastrointestinal: Gastrointestinal: Reports no additional gastrointestinal complaints, Denies abdominal pain, Denies nausea and Denies vomiting Musculoskeletal: Musculoskeletal: Reports no additional musculoskeletal complaints Integumentary/Breasts: Skin/Breast: Reports system reviewed and no additional complaints, except as docu Neurologic: Reports system reviewed and no additional complaints, except as documented Psychiatric: Psychiatric: Reports no additional psychiatric complaints Allergic/Immunologic: Allergic/Immunologic: Reports no additional allergic/immunologic complaints PMFSH Past Medical History Medical History Chronic kidney disease Chronic low back pain CKD stage 3 due to type 2 diabetes mellitus Depression Diabetes mellitus HTN (hypertension) with goal to be determined Hypothyroidism PVD (peripheral vascular disease) Surgical History Surgical History History of vascular surgery Family History Family History Mother Breast cancer Other Family history of chronic obstructive pulmonary disease Family history of malignant neoplasm Social History Social History Smoking packs per day: 0.25 Smoking cigarettes per day: 5.0 Years smoked: 35 Smoking pack-years: 8.75 Smoking status: Current every day smoker Tobacco type: cigarettes Smoking end date: 07/20/16 Alcohol intake: never Substance use: never Gender identity (if verbalized by the patient): Female Spiritual care concerns: No Agree to blood products: Yes Comments At the time of my signature, I reviewed and agree with the nursing past medical, surgical, social, and family history. There is no relevant family history pertinent to the patient complaint. Exam Const: General: cooperative, healthy appearing, comfortable, no acute distress, well developed, alert and well nourished Nutritional Appearance: well nourished Orientation/consciousness: patient oriented x3 Limitations: no limitations HENMT: Head: normal to inspection Ears: hearing grossly normal bilaterally and external ears normal Face/Nose/Sinus: Normal external nose present, Normal nares present, Normal nasal mucous membranes and turbinates present and normal facial exam Face and sinus: normal facial exam Mouth: Yes Normal oral and palatal mucosa present, Yes lip normal and Yes moist mucous membranes Throat: posterior oropharynx normal and uvula midline Eyes: General: appearance normal, both eyes and all related structures Alignment and Position: a
[2022-08-11 18:54] LABS: Glucose Point of Care 181 mg/dl (65-105)
== END 2022-08-11 18:59 | disposition home or self-care (01) ==
PROVIDERS: Emergency Provider Nurse Practitioner; PCP Emergency Medicine
DX: J32.9 Chronic sinusitis, unspecified (principal); Z87.891 Personal history of nicotine dependence; I12.9 Hypertensive chronic kidney disease with stage 1 through stage 4 chronic kidney disease, or unspecified chronic kidney disease; E11.22 Type 2 diabetes mellitus with diabetic chronic kidney disease; N18.30 Chronic kidney disease, stage 3 unspecified; E03.9 Hypothyroidism, unspecified; E11.51 Type 2 diabetes mellitus with diabetic peripheral angiopathy without gangrene; F32.A Depression, unspecified
CPT/HCPCS: 82948; 99213; G0463

== ENCOUNTER 2022-09-27 00:31 | Inpatient (IN) | payer OTHER, SELFPAY ==
[2022-09-27] VITALS (23 sets, daily range): BP systolic 139–200; BP diastolic 56–106; PULSE 60–88; RESP 13–18; TEMP 36–37.6; O2SAT 96–100; BMI 29.5
--- NOTE | 2022-09-27 | ECHO_ITS ---
Patient Info Name: Caryn Jeffrey Age: 61 years : 1960 Gender: Female Ht: 64 in Wt: 171 lbs BSA: 1.90 m2 HR: 66 bpm BP: 184 / 89 mmHg Technical Quality: Good Exam Date: 09/27/2022 8:49 AM Exam Location: [facility] Pulmonary Exam Room: 213 Patient Status: Inpatient Admit Date: 09/27/2022 Staff Ordering Physician: Sommer Diaz MD Spa Associate: Jackelin Weber RCS Attending Provider: Sommer Diaz MD Referring Physician: Joe RIVERA; Exam Type: CA echo doppler color flow Study Info Indications - CHEST PAIN Complete two-dimensional, color flow and Doppler transthoracic echocardiogram is performed. Summary 1. Complete two-dimensional, color flow and Doppler transthoracic echocardiogram is performed. 2. Left ventricular chamber dimension is normal. 3. Basal to apical Inferoposterior and lateral huston are severely hypokinetic. 4. Left ventricular systolic function is moderately reduced, estimated at 35-40%. 5. There is moderately increased left ventricular wall thickness. 6. The left ventricular diastolic function is grade I diastolic dysfunction. 7. E/e' 20 is elevated. 8. Global longitudinal strain is abnormal at -9.7%. 9. Left atrial chamber dimension is mildly enlarged. 10. There is moderate aortic valve sclerosis. 11. The mitral valve has moderately calcified annulus. 12. There is mild mitral valve regurgitation. 13. No pulmonary hypertension, estimated pulmonary arterial systolic pressure is 26 mmHg. Left Ventricle E/e' 20 is elevated. Global longitudinal strain is abnormal at -9.7%. Basal to apical Inferoposterior and lateral huston are severely hypokinetic. Left ventricular chamber dimension is normal. Left ventricular systolic function is moderately reduced, estimated at 35-40%. There is moderately increased left ventricular wall thickness. The left ventricular diastolic function is grade I diastolic dysfunction. Right Ventricle Right ventricular systolic function is normal and with normal TAPSE 2.2 cm. Right ventricular chamber dimension is normal. Left Atria Left atrial chamber dimension is mildly enlarged. Right Atria Right atrial chamber dimension is normal. Aortic Valve The aortic valve is trileaflet. There is moderate aortic valve sclerosis. There is no aortic valve stenosis. There is no aortic valve regurgitation. Pulmonic Valve There is no pulmonic regurgitation. Mitral Valve The mitral valve has moderately calcified annulus. There is no mitral valve stenosis. There is mild mitral valve regurgitation. Tricuspid Valve There is no tricuspid valve regurgitation. No pulmonary hypertension, estimated pulmonary arterial systolic pressure is 26 mmHg. Pericardium/Pleural There is no pericardial effusion. Inferior Vena Cava Normal inferior vena cava with >50% collapse upon inspiration consistent with normal right atrial pressure, 5 mmHg. Aorta The aortic root size at the sinus of Valsalva is normal. Left Ventricular Outflow Tract Name Value Normal LVOT 2D LVOT Diameter 2.0 cm LVOT Doppler LVOT Peak Gradient 5 mmH
--- NOTE | ~2022-09-27 | US_ITS ---
EXAMINATION: US renal BI DATE: 09/27/2022 09:28 INDICATION: Acute kidney injury TECHNIQUE: Multiple ultrasound grayscale images of the kidneys were obtained. COMPARISON: None. FINDINGS: The right kidney measures 9.6 x 4.7 x 4.8 cm. The left kidney measures 10.4 x 4.6 x 4.4 cm. The kidne ys demonstrate normal echogenicity. There is no hydronephrosis in either kidney. No stones identifie d. The bladder is normal with bilateral ureteral jets visualized with color Doppler. IMPRESSION: 1. Normal kidneys without hydronephrosis. Reviewed, dictated and finalized at location A. ADMINISTRATOR
--- NOTE | ~2022-09-27 | XR_ITS ---
EXAMINATION: XR chest 1V portable DATE: 09/27/2022 01:54 INDICATION: Chest pain TECHNIQUE: frontal view of the chest was obtained. COMPARISON: Chest radiograph dated 11/16/2019 FINDINGS: The lungs are clear with no focal airspace opacities, pulmonary edema, pleural effusion or pneumothor ax. The cardiomediastinal silhouette is normal. Visualized bones and soft tissues are unremarkable. IMPRESSION: 1. No acute cardiopulmonary disease. Reviewed, dictated and finalized at location A. SECURITY ADMINISTRATOR
--- NOTE | 2022-09-27 00:58 | ECG_ITS ---
Measurements Intervals [place] Rate: 88 P: 47 IN: 143 QRS: 8 QRSD: 110 T: 190 QT: 394 QTc: 478 Interpretive Statements SINUS RHYTHM ATRIAL PREMATURE COMPLEX POSSIBLE LEFT ATRIAL ENLARGEMENT DELAYED PRECORDIAL R/S TRANSITION LEFT VENTRICULAR HYPERTROPHY AND ST-T CHANGE ST-T WAVE ABNORMALITY IN LATERAL LEADS- CONSIDER ISCHEMIA BASELINE ARTIFACT- II, AVR, AVL, AVF ABNORMAL ECG COMPARED TO ECG 11/16/2019 02:13:47 SINUS RHYTHM NOW PRESENT Electronically Signed On 09-27-2022 6:54:21 MANAGER [employer] by Jam Fung D.O.
[2022-09-27 01:30] LABS: Basophils Percent Auto 0.4 % (0.2-1.2); Eosinophils Absolute Auto 0.3 K/mm3 (0-0.3); Hematocrit 39.4 % (37.0-47.0); Hemoglobin 13.4 g/dL (12.0-15.0); Immature Granulocyte Absolute 0.02 K/mm3 (0.00-0.031); Immature Granulocyte Percent A 0.2 % (0-0.5); Lymphocytes Absolute Auto 2.15 K/mm3 (0.9-3.2); Lymphocytes Percent Auto 25.7 % (18.3-44.2); Mean Corpuscular Hemoglobin 33.8 pg (26-34); Mean Corpuscular Volume 99.2 fl (80-100); Mean Platelet Volume 10.2 fl (7.4-10.4); Monocytes Absolute Auto 0.6 K/mm3 (0.1-0.6); Monocytes Percent Auto 6.8 % (2.6-8.5); Neutrophils Absolute Auto 5.4 K/mm3 (1.3-6.7); Neutrophils Percent Auto 63.9 % (45.5-73.1); Platelet Count Result 146 k/mm3 (150-375); Red Blood Count 3.97 M/mm3 (4.2-5.4); Red Cell Distribution Width 12.9 % (11.5-14.5); White Blood Count 8.4 K/mm3 (4.5-10.0)
[2022-09-27 01:44] LABS: Prothrombin Time 12.4 Seconds (11.1-14.7)
[2022-09-27 01:45] LABS: Partial Thromboplastin Time 26.9 SECONDS (22.3-36.8)
[2022-09-27 01:51] LABS: Alanine Aminotransferase 20 U/L (6-35); Albumin Level 3.6 g/dL (3.5-5.1); Alkaline Phosphatase 98 U/L (38-126); Anion Gap 7 mmol/L (8-16); Aspartate Amino Transferase 34 U/L (14-36); Bilirubin,Total 0.4 mg/dL (0.2-1.3); Blood Urea Nitrogen 39 mg/dL (7-17); Calcium 8.4 mg/dL (8.4-10.2); Carbon Dioxide 22 mmol/L (22-30); Chloride 102 mmol/L (98-107); Estimated CRCL calculation 20 ml/min; Estimated Glomerular Filt Rate 17; Glucose 382 mg/dL (65-110); Lipase 88 U/L (23-300); Potassium 4.1 mmol/L (3.4-5.0); Sodium 131 mmol/L (137-145)
[2022-09-27 02:04] LABS: Appearance Urine Clear (Clear); Bacteria Urine None Seen /hpf; Bilirubin Urine Negative (Negative); Blood Urine 1+ (Negative); Color Urine Yellow (Yellow); Glucose Urine UA 3+ mg/dL (Negative); Ketones Urine Negative (Negative); Leukocyte Esterase Ur Negative LEU/UL (Negative); Nitrate Urine Negative (Negative); Non Pathogenic Casts 0-2; Protein Urine 3+ mg/dL (Negative); RBC Urine 0-2 /hpf (0-2); Specific Grav Ur 1.015 (1.001-1.035); Squamous Epithelial Cell Urine None seen /hpf (Few); Urobilinogen Urine 0.2 mg/dL (<2.0); WBC Urine 0-5 /hpf; pH Urine 6.5 (5.0-9.0)
[2022-09-27] MEDS: NITROGLYCERIN SL 0.4 MG TABLET SUBLINGUAL (02:07)
--- NOTE | 2022-09-27 02:09 | ED.GENADULT ---
HPI - General Adult General Chief complaint: Chest Pain Stated complaint: chest pain Time Seen by Provider: 09/27/22 00:51 History of Present Illness HPI narrative: Patient is a 61-year-old female who presents the emergency department with chief complaint of chest pain. Patient reports that she had a very stressful day at work and then reports that she started having heaviness and a burning sensation in her chest. Patient states it was improved when EMS gave her some nitro and aspirin and reports that is still hurting at this time. Patient reports she has no prior history of cardiac disease but does report that she smokes and reports that she has history of hypertension and has history of diabetes. Patient also reports history of renal insufficiency Related Data Allergies Allergy/AdvReac Type Severity Reaction Status Date / Time hydrocodone Allergy Unknown Unknown Verified 09/27/22 01:00 Penicillins Allergy Unknown Rash Verified 09/27/22 01:00 Review of Systems Review of Systems: A 10 system review of systems was completed on the patient and is negative except for what is stated in the HPI. Nursing and ancillary documentation was reviewed. [facility] Past Medical History Medical History Chronic kidney disease Chronic low back pain CKD stage 3 due to type 2 diabetes mellitus Depression Diabetes mellitus HTN (hypertension) with goal to be determined Hypothyroidism PVD (peripheral vascular disease) Surgical History Surgical History History of vascular surgery Family History Family History Mother Breast cancer Other Family history of chronic obstructive pulmonary disease Family history of malignant neoplasm Social History Social History Smoking packs per day: 0.25 Smoking cigarettes per day: 5.0 Years smoked: 35 Smoking pack-years: 8.75 Smoking status: Current every day smoker Tobacco type: cigarettes Smoking end date: 07/20/16 Alcohol intake: never Substance use: never Gender identity (if verbalized by the patient): Female Spiritual care concerns: No Agree to blood products: Yes Exam Narrative: GENERAL: Well-appearing, well-nourished, and in no acute distress. HEAD: Normocephalic, atraumatic. EYES: PERRLA and EOMI. ENT: Nares clear, no rhinorrhea or epistaxis. Mucous membranes moist. NECK: Supple. CHEST: Clear to auscultation. No respiratory distress. HEART: Regular rate and rhythm. No murmur heard. Normal peripheral pulses. ABDOMEN: Soft, nontender, nondistended, normal active bowel sounds. EXTREMITIES: Normal range of motion. No edema. SKIN: Warm, dry, no rash. NEURO: No focal deficits. Alert and oriented x3. PSYCH: Normal mood and affect. Course Course Emergency Course: EKG is sinus rhythm rate of 88 there are T wave inversions and ST depressions present there are no ST elevations present on EKG. Differential diagnosis includes ACS, unstable angina, NSTEMI Patient received aspirin prehospital by EMS Oratory studies show renal insufficiency with a creatinine of 2.8 patient does have history of baseline renal insufficiency from previous labs glucose was 382. Initial troponin was elevated at 1.61 Chest x-ray interpreted by me shows no evidence of focal infiltrate widened mediastinum or pneumothorax. Vital Signs Vital signs: Vital Signs Temperature 37.6 C 09/27/22 00:35 Pulse Rate 88 09/27/22 00:35 Respiratory Rate 17 09/27/22 00:35 Blood Pressure 167/106 H 09/27/22 00:35 Pulse Oximetry 97 09/27/22 00:35 Oxygen Delivery Room Air 09/27/22 00:35 Temperature 37.6 C 09/27/22 00:35 Pulse Rate 88 09/27/22 00:35 Respiratory Rate 17 09/27/22 00:35 Blood Pressure 167/106 H 09/27/22 00:35 Pulse
[2022-09-27] MEDS: NITROGLYCERIN OINTMENT 1 INCH DOSE TRANSDERM ×5 (02:11→23:48)
[2022-09-27] MEDS: MORPHINE SULFATE (*CRX) 4 MG/ML INJ IV PUSH (02:11)
--- NOTE | 2022-09-27 02:24 | ECG_ITS ---
Measurements Intervals [place] Rate: 70 P: 33 [place]: 124 QRS: 9 QRSD: 101 T: 202 QT: 437 QTc: 473 Interpretive Statements SINUS RHYTHM LEFT VENTRICULAR HYPERTROPHY AND ST-T CHANGE ST-T WAVE ABNORMALITY IN INFERIOR LEADS- CONSIDER ISCHEMIA ABNORMAL ECG COMPARED TO ECG 09/27/2022 00:41:38 NO SIGNIFICANT CHANGES Electronically Signed On 09-27-2022 6:57:09 FORENSIC SERGEANT by Jam Fung D.O.
[2022-09-27 02:39] LABS: Add Urine Microscopic? YES
[2022-09-27 02:43] LABS: NT Pro B Type Natriuretic Pept 17700 pg/mL (19.9-100)
[2022-09-27] MEDS: HEPARIN SODIUM 5,000 UNITS/ML VIAL 4000 UNITS IV PUSH ×2 (03:19→10:02)
[2022-09-27] MEDS: HEPARIN SOD/D5W 100 UNITS/ML 25,000 UNITS/250 ML BAG 8 UNITS IV CONT (03:21)
[2022-09-27] MEDS: METOPROLOL TARTRATE INJ 5 MG/5 ML VIAL IV PUSH (03:35)
--- NOTE | 2022-09-27 03:56 | ADMGEN ---
This patient, Caryn Jeffrey, was admitted to IMU Room 213-01. Patient/family oriented to hospital policies and general routines including ID bracelet, bed and alarms, visiting hours, pain management, procedures, bathroom and other care routines, personal items, smoking policy, room service/diet, and visiting hours. Information on how to activate the Rapid Response Team has been discussed. Patient/Family are encouraged to report perceived risks to care and to ask questions if they do not understand what they are told or what they should do.
--- NOTE | 2022-09-27 04:12 | PM.IMHP ---
H&P: HPI History of Present Illness Date/Time: 09/27/22 04:12 Chief Complaint: CHEST PAIN Narrative: This is a 61-year-old female with past medical history significant for hypertension, diabetes mellitus, chronic kidney disease, chronic low back pain, peripheral vascular disease. Patient presents to the emergency room due to precordial chest pain lasted for several hours, nonradiating, patient has had daily headaches as well, called EMS I was brought to the emergency room, patient has not been taking her usual medications for 3 weeks or so after she ran out of refills. Patient denies any nausea, vomiting, lightheadedness, syncope or near syncope, no shortness of breath, no leg swelling. Upon presentation to emergency room patient was found to have a systolic blood pressure of 200 with diastolic in the 100s. Preliminary workup was significant for elevated troponin patient down has been admitted to IMU for further evaluation management and treatment. Review of Systems Review of Systems: Precordial chest pain, daily headaches. Constitutional: Constitutional: Denies chills, Denies fever(s), Denies malaise, Denies night sweats, Denies poor appetite and Denies weakness Eyes: Eyes: Denies change in vision ENT: Denies dysphagia and Denies odynophagia Cardiovascular: Cardiovascular: Reports chest pain, Denies leg edema, Denies lightheadedness, Denies radiating jaw, neck or arm pain and Denies palpitations Respiratory: Respiratory: Denies chest congestion, Denies cough, Denies pain on inspiration, Denies dyspnea, Denies dyspnea on exertion and Denies wheezing Gastrointestinal: Gastrointestinal: Denies abdominal pain, Denies dyspepsia, Denies heartburn, Denies diarrhea, Reports nausea and Denies vomiting Genitourinary: Genitourinary: Denies dysuria Musculoskeletal: Musculoskeletal: Denies back pain, Denies joint swelling and Denies muscle weakness Integumentary/Breasts: Skin/Breast: Denies rash Neurologic: Denies focal weakness and Denies Sensory deficit (Neuro) Psychiatric: Psychiatric: Reports no additional psychiatric complaints and Reports as per HPI Endocrine: Endocrine: Denies cold intolerance, Denies flushing, Denies heat intolerance, Denies polyphagia, Denies polydipsia and Denies palpitations Hematologic/Lymphatic: Hematologic/Lymphatic: Reports no additional hematologic/lymphatic complaints and Reports as per HPI Allergic/Immunologic: Allergic/Immunologic: Reports no additional allergic/immunologic complaints and Reports as per [facility] Past Medical History Medical History Chronic kidney disease Chronic low back pain CKD stage 3 due to type 2 diabetes mellitus Depression Diabetes mellitus HTN (hypertension) with goal to be determined Hypothyroidism PVD (peripheral vascular disease) Surgical History Surgical History History of vascular surgery Family History Family History Mother Breast cancer Other Family history of chronic obstructive pulmonary disease Family history of malignant neoplasm Social History Social History Smoking packs per day: 0.25 Smoking cigarettes per day: 5.0 Years smoked: 35 Smoking pack-years: 8.75 Smoking status: Light tobacco smoker Tobacco type: cigarettes Smoking end date: 07/20/16 Alcohol intake: never Substance use: never Lack of Transportation: No Lack of Food: Sometimes True Current Housing: I Have Housing Concerned About Future Housing: No Difficulty Paying Gas/Electric Bills: No Difficulty Paying for Meds: No Currently Unemployed: No Education: Don't Know Difficulty w/ Childcare or Family Care: No Gender identity (if verbalized by the patient): Female Spiritual care concerns: No Agree to b
[2022-09-27 04:43] LABS: Basophils Absolute Auto 0.1 K/mm3 (0.0-0.1); Basophils Percent Auto 0.6 % (0.2-1.2); Eosinophils Absolute Auto 0.3 K/mm3 (0-0.3); Eosinophils Percent Auto 2.8 % (0-4.4); Hematocrit 41.9 % (37.0-47.0); Hemoglobin 13.8 g/dL (12.0-15.0); Immature Granulocyte Absolute 0.04 K/mm3 (0.00-0.031); Immature Granulocyte Percent A 0.4 % (0-0.5); Lymphocytes Absolute Auto 2.83 K/mm3 (0.9-3.2); Lymphocytes Percent Auto 28.8 % (18.3-44.2); Mean Corpuscular HGB Conc 32.9 g/dl (32-36); Mean Corpuscular Hemoglobin 33.4 pg (26-34); Mean Corpuscular Volume 101.5 fl (80-100); Mean Platelet Volume 10.6 fl (7.4-10.4); Monocytes Absolute Auto 0.8 K/mm3 (0.1-0.6); Monocytes Percent Auto 8.2 % (2.6-8.5); Neutrophils Absolute Auto 5.8 K/mm3 (1.3-6.7); Neutrophils Percent Auto 59.2 % (45.5-73.1); Platelet Count Result 174 k/mm3 (150-375); Red Blood Count 4.13 M/mm3 (4.2-5.4); White Blood Count 9.8 K/mm3 (4.5-10.0)
[2022-09-27] MEDS: SODIUM CHLORIDE 0.9% IV 1,000 ML 100 ML IV CONT (06:03)
[2022-09-27 07:27] LABS: Prothrombin Time 12.9 Seconds (11.1-14.7)
--- NOTE | 2022-09-27 07:42 | PM.CNCAR ---
Assessment and Plan Assessment and plan (1) Chest pain: Code(s): R07.9 - Chest pain, unspecified Status: Acute Assessment and Plan: Vague, atypical. (2) Non-ST elevated myocardial infarction: Code(s): I21.4 - Non-ST elevation (NSTEMI) myocardial infarction Status: Acute Assessment and Plan: Troponin increased to 2.6. Trend troponin to peak. Could be NSTEMI or due to hypertension, LVH, kidney disease and elevated BNP. Obtain echo. Continue aspirin daily, heparin drip, start Atorvastatin 80 mg daily and Carvedilol 3.125 mg BID. If echo shows wall motion abnormalities or if cp do not resolve, then consider LHC on Thursday or when kidney function returns to baseline of Cr 2.0. (3) Acute kidney injury superimposed on CKD: Code(s): N17.9 - Acute kidney failure, unspecified; N18.9 - Chronic kidney disease, unspecified Status: Acute Assessment and Plan: Monitor. (4) HTN (hypertension) with goal to be determined: Code(s): I10 - Essential (primary) hypertension Status: Chronic Assessment and Plan: Start carvedilol 3.125 mg BID. On Amlodipine. Monitor BP. (5) Tobacco dependence: Code(s): F17.200 - Nicotine dependence, unspecified, uncomplicated Status: Acute Assessment and Plan: Counseled regarding smoking cessation. 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 (7) PVD (peripheral vascular disease): Code(s): I73.9 - Peripheral vascular disease, unspecified Status: Chronic Assessment and Plan: Stable. (8) PSVT (paroxysmal supraventricular tachycardia): Code(s): I47.1 - Supraventricular tachycardia Status: Acute Assessment and Plan: History of PSVT. Stable. History of Present Illness History of Present Illness Consult date/time: 09/27/22 07:42 Reason For Visit: non stemi,chest pain,chronic renal insufficiency,d Narrative: 61 yr old woman who is my regular cardiology patient who I have not seen in over 2 years presents to ER for chest pain. She has a history of PAD s/p PTCA of left leg with Dr. Yung Santana in 2018, DM, smoking. Reports she had a stressful day at work yesterday, she got home was trying to relax and noted sharp chest pain radiating into her neck and headaches at 7 pm. She has been having sinus headaches recently. She went to bed but discomfort persisted so she called EMS at midnight. Her chest pain is now a mild ache and she has some headaches. She smokes 1 ppd. States she is limited at walking 1 block due to bulging discs causing lower back pain radiating down her legs. She has been treated with Meloxicam, Tramadol and Tizanidine for pain at pain clinic. Denies sob, orthopnea, edema. Cardiovascular Procedures Operations Executive:: 2018 PTCA of left leg with Dr. Yung Santana. Echo/MUGA:: 11/16/19 Echo: EF 65-70%, mod asymmetric hypertrophy, septum 1.6 cm and posterior wall 1.2 cm s/o HOCM, grade I diastolic dysfunction. Electrophysiology:: 11/16/19 7 day event monitor: SInus rhythm, HR range 50-120 bpm; average 72 bpm; 1% PAC's, 1 SVT at 115 bpm lasts 7 beats; <1% PVC's. 11/16/19 EKG: Sinus bradycardia at 52 bpm, LVH with ST-T changes, ST-T wave abnormality in anterolat/lat leads- consider ischemia. Stress Tests:: 11/16/19 Carotid duplex: <50% bilateral stenosis. Review of Systems Review of Systems: All systems reviewed & are unremarkable except as
[2022-09-27 08:11] LABS: Glucose Point of Care 177 mg/dl (65-105)
[2022-09-27] MEDS: GABAPENTIN 300 MG CAPSULE PO ×3 (08:40→16:26)
[2022-09-27] MEDS: amLODIPine BESYLATE 5 MG TABLET 10 MG PO (08:40)
[2022-09-27] MEDS: buPROPion HCL SR (12 HR) 150 MG TAB PO (08:40)
[2022-09-27] MEDS: ASPIRIN 81 MG CHEWABLE TABLET PO (08:40)
[2022-09-27] MEDS: CITALOPRAM HYDROBROMIDE 20 MG TABLET PO (08:41)
[2022-09-27] MEDS: FLUTICASONE PROPIONATE 0.05% NA SPR 16 GM BTL (*BKC) 2 SPRAY NASAL (08:42)
[2022-09-27] MEDS: ATORVASTATIN 40 MG TABLET 80 MG PO (08:46)
[2022-09-27] MEDS: carvediloL 3.125 MG TABLET PO ×2 (08:47→20:33)
[2022-09-27 09:45] LABS: Partial Thromboplastin Time 43.2 SECONDS (22.3-36.8)
--- NOTE | 2022-09-27 13:28 | PM.IMPN ---
Progress Note: A&P Assessment and Plan (1) Non-ST elevated myocardial infarction: Code(s): I21.4 - Non-ST elevation (NSTEMI) myocardial infarction Status: Acute (2) Hypertensive emergency without congestive heart failure: Code(s): I16.1 - Hypertensive emergency Status: Acute (3) Acute kidney injury superimposed on CKD: Code(s): N17.9 - Acute kidney failure, unspecified; N18.9 - Chronic kidney disease, unspecified Status: Acute (4) Diabetes mellitus: Qualifiers: Chronic kidney disease stage: stage 3 (moderate) Diabetes mellitus complication detail: with chronic kidney disease Diabetes mellitus complication status: with kidney complications Diabetes mellitus channel layer insulin use: without channel layer use Diabetes mellitus type: type 2 Qualified Code(s): E11.22 - Type 2 diabetes mellitus with diabetic chronic kidney disease; N18.3 - Chronic kidney disease, stage 3 (moderate) Code(s): E11.9 - Type 2 diabetes mellitus without complications Status: Chronic (5) PVD (peripheral vascular disease): Code(s): I73.9 - Peripheral vascular disease, unspecified Status: Chronic Plan # chest pain EKG with T-wave inversions and ST depressions no ST elevations. Now with elevated troponin suggestive of non ST-elevation FL. on heparin drip. Aspirin. Echo with basal and apical inferior 0 posterior and lateral wall with severe hypokinesis see a. LVEF 35-40%. Monitor renal function # non ST-elevation FL # hypertensive emergency blood pressure improved was given nitro. On amlodipine blood pressures improved # RADHA on CKD stage 3 creatinine at 2.8 on admission. # type 2 diabetes mellitus on oral medication check A1c. # congestive heart failure not in exacerbation. Will hold IV fluid. EF low at 35 to 40%. # hypothyroidism continue levothyroxine # hyperlipidemia atorvastatin check lipid profile # hyperuricemia # peripheral neuropathy # peripheral vascular disease status post PTCA left leg in the past on aspirin and statin # tobacco abuse # anxiety depression # DVT prophylaxis on heparin drip # code status full code Subjective Date/time seen: 09/27/22 13:28 Interval history: Patient presented with chest pain precordial last for several related to upper shoulders. Currently complaining of headache. Not been taking her usual reviewed chest so SC renal fever. Blood pressure was elevated in the ER. Review of Systems Review of Systems: All systems reviewed & are unremarkable except as noted in HPI and below Exam Narrative: GENERAL: Well-appearing, well-nourished, and in no acute distress. HEAD: Normocephalic, atraumatic. EYES: PERRLA and EOMI. ENT: Nares clear, no rhinorrhea or epistaxis.? Mucous membranes moist. NECK: Supple. CHEST: Clear to auscultation.? No respiratory distress. HEART: Regular rate and rhythm.? No murmur heard.? Normal peripheral pulses. ABDOMEN: Soft, nontender, nondistended, normal active bowel sounds. EXTREMITIES: Normal range of motion.? No edema. SKIN: Warm, dry, no rash. NEURO: No focal deficits.? Alert and oriented x3. PSYCH: Normal mood and affect. Objective Data Vital Signs Vital Signs: Vital Signs - 24 hr 09/27/22 00:35 09/27/22 00:59 09/27/22 03:25 Temperature 99.6 F Pulse Rate 88 72 Respiratory Rate 17 16 Blood Pressure 167/106 H 193/96 H Pulse Oximetry 97 97 98 Oxygen Delivery Room Air Room Air 09/27/22 00:46 09/27/22 01:02 09/27/22 03:35 Temperature Pulse Rate 87 87 71 Respiratory Rate 15 16 Blood Pressure 167/106 H 179/104 H Pulse Oximetry 97 98 Oxygen Delivery 09/27/22 03:26 09/27/22 03:31 09/27/22 03:45 Temperature Pulse Rate 71 72 71 Respiratory Rate 13 17 13 Blood Pressure 193/96 H 200/104 H 193/96 H Pulse Oximetry 97 97 97 Oxygen Delivery 09/27/22 03:55 09/27/22 04:41 09/27/22 06:00 Temperature 97.1 F L Pulse Rate 60 70 67 Respiratory Rate 16 Blood Pressure 182/97
[2022-09-27] MEDS: ACETAMINOPHEN 325 MG TABLET 650 MG PO ×2 (13:41→20:40)
[2022-09-27 14:36] LABS: Glucose Point of Care 170 mg/dl (65-105)
[2022-09-27 14:57] LABS: Cholesterol 274 mg/dL (0-200); HDL Direct 47 mg/dL; Triglycerides 176 mg/dL (<150)
[2022-09-27 15:08] LABS: LDL Cholesterol Direct 165 mg/dL
[2022-09-27 15:45] LABS: Hemoglobin A1C 7.9 % (<5.7)
[2022-09-27 16:13] LABS: Partial Thromboplastin Time 67.6 SECONDS (22.3-36.8)
[2022-09-27] MEDS: HEPARIN SODIUM 5,000 UNITS/ML VIAL 2500 UNITS IV PUSH (16:18)
[2022-09-27 19:12] LABS: Glucose Point of Care 197 mg/dl (65-105)
[2022-09-27 20:55] LABS: Glucose Point of Care 197 mg/dl (65-105)
[2022-09-27 23:29] LABS: Partial Thromboplastin Time 132.5 SECONDS (22.3-36.8)
[2022-09-28] VITALS (16 sets, daily range): BP systolic 112–160; BP diastolic 64–86; PULSE 57–78; RESP 16–20; TEMP 36.2–36.8; O2SAT 97–100
--- NOTE | 2022-09-28 00:20 | ECG_ITS ---
Measurements Intervals [place] Rate: 63 P: 58 [place]: 149 QRS: 10 QRSD: 104 T: 211 QT: 454 QTc: 468 Interpretive Statements SINUS RHYTHM LEFT VENTRICULAR HYPERTROPHY AND ST-T CHANGE ST-T WAVE ABNORMALITY IN DIFFUSE LEADS- CONSIDER ISCHEMIA BASELINE ARTIFACT- I, III, AVL, AVF ABNORMAL ECG COMPARED TO ECG 09/27/2022 02:26:14 NO SIGNIFICANT CHANGES Electronically Signed On 09-28-2022 7:56:10 CDT by Jam Fung D.O.
[2022-09-28] MEDS: MORPHINE SULFATE (*CRX) 2 MG/ML INJ (00:34)
[2022-09-28] MEDS: HEPARIN SOD/D5W 100 UNITS/ML 25,000 UNITS/250 ML BAG 11 UNITS IV CONT ×3 (01:53→23:42)
--- NOTE | 2022-09-28 03:32 | PC.NURSE ---
Daylight Savings Time For Daylight Savings Time Ending in the Fall - Clocks are moved back. For Daylight Savings Time Beginning in the Spring - Clocks are moved ahead. For [facility], the time of change occurs at 0200 hrs. Time is taken from the restaurant server. This entry on the patient's chart recognizes the change in time reflected during documentation. Example: 2 entries for vital signs may be charted for 0200 hrs.
[2022-09-28 04:13] LABS: Basophils Percent Auto 0.4 % (0.2-1.2); Eosinophils Absolute Auto 0.2 K/mm3 (0-0.3); Eosinophils Percent Auto 3.3 % (0-4.4); Hematocrit 36.8 % (37.0-47.0); Hemoglobin 12.4 g/dL (12.0-15.0); Immature Granulocyte Absolute 0.01 K/mm3 (0.00-0.031); Immature Granulocyte Percent A 0.1 % (0-0.5); Lymphocytes Absolute Auto 2.05 K/mm3 (0.9-3.2); Lymphocytes Percent Auto 29.5 % (18.3-44.2); Mean Corpuscular HGB Conc 33.7 g/dl (32-36); Mean Corpuscular Volume 97.9 fl (80-100); Mean Platelet Volume 10.2 fl (7.4-10.4); Monocytes Absolute Auto 0.4 K/mm3 (0.1-0.6); Neutrophils Absolute Auto 4.2 K/mm3 (1.3-6.7); Neutrophils Percent Auto 60.7 % (45.5-73.1); Platelet Count Result 144 k/mm3 (150-375); Red Blood Count 3.76 M/mm3 (4.2-5.4); Red Cell Distribution Width 13.1 % (11.5-14.5)
[2022-09-28 04:25] LABS: Alanine Aminotransferase 18 U/L (6-35); Albumin Level 3.1 g/dL (3.5-5.1); Alkaline Phosphatase 69 U/L (38-126); Anion Gap 4 mmol/L (8-16); Aspartate Amino Transferase 48 U/L (14-36); Bilirubin,Total 0.4 mg/dL (0.2-1.3); Blood Urea Nitrogen 35 mg/dL (7-17); Calcium 8.2 mg/dL (8.4-10.2); Carbon Dioxide 23 mmol/L (22-30); Chloride 105 mmol/L (98-107); Estimated CRCL calculation 21 ml/min; Estimated Glomerular Filt Rate 19; Glucose 139 mg/dL (65-110); Magnesium 1.9 mg/dL (1.6-2.3); Sodium 132 mmol/L (137-145)
[2022-09-28] MEDS: LEVOTHYROXINE SODIUM 125 MCG TABLET PO (06:20)
[2022-09-28] MEDS: NITROGLYCERIN OINTMENT 1 INCH DOSE TRANSDERM ×4 (06:20→23:42)
[2022-09-28 07:15] LABS: Partial Thromboplastin Time 80.3 SECONDS (22.3-36.8)
[2022-09-28 07:49] LABS: Glucose Point of Care 151 mg/dl (65-105)
--- NOTE | 2022-09-28 07:52 | PC.NURSE ---
[facility], [facility] acknowledged with no rate change at 0730. Unable to reflect in SEP. Pharmacy and charge master coordinator notified. Next PTT draw [phone].
--- NOTE | 2022-09-28 08:40 | PM.PNCARD ---
Progress Note: A&P Assessment and Plan (1) Chest pain: Code(s): R07.9 - Chest pain, unspecified Status: Acute Assessment and Plan: Resolved. (2) Non-ST elevated myocardial infarction: Code(s): I21.4 - Non-ST elevation (NSTEMI) myocardial infarction Status: Acute Assessment and Plan: Troponin increased 6.6. Trend troponin to peak. 09/27/22 Echo: EF 35-40%, Basal to apical inferoposterior and lateral huston are severely hypokinetic, mod LVH, grade I diastolic dysfunction (E/e' 20), mild LAE, mild MR. Continue aspirin daily, heparin drip, started Atorvastatin 80 mg daily and increase Carvedilol 6.25 mg BID. Nephrology consulted. Consider [facility] on Thursday or when kidney function returns to baseline of Cr 2.0 or optimized. (3) Acute kidney injury superimposed on CKD: Code(s): N17.9 - Acute kidney failure, unspecified; N18.9 - Chronic kidney disease, unspecified Status: Acute Assessment and Plan: Nephrology following. Monitor. (4) HTN (hypertension) with goal to be determined: Code(s): I10 - Essential (primary) hypertension Status: Chronic Assessment and Plan: Increase carvedilol 6.25 mg BID. On Amlodipine. Monitor BP. (5) Tobacco dependence: Code(s): F17.200 - Nicotine dependence, unspecified, uncomplicated Status: Acute Assessment and Plan: Counseled regarding smoking cessation. (6) Diabetes mellitus: Qualifiers: Diabetes mellitus type: type 2 Diabetes mellitus long term care phlebotomist insulin use: without residential use Diabetes mellitus complication status: with kidney complications Diabetes mellitus complication detail: with chronic kidney disease Chronic kidney disease stage: stage 3 (moderate) Qualified Code(s): E11.22 - Type 2 diabetes mellitus with diabetic chronic kidney disease; N18.3 - Chronic kidney disease, stage 3 (moderate) Code(s): E11.9 - Type 2 diabetes mellitus without complications Status: Chronic Assessment and Plan: Manage as per hospitalist. (7) PVD (peripheral vascular disease): Code(s): I73.9 - Peripheral vascular disease, unspecified Status: Chronic Assessment and Plan: Stable. (8) PSVT (paroxysmal supraventricular tachycardia): Code(s): I47.1 - Supraventricular tachycardia Status: Acute Assessment and Plan: History of PSVT. Stable. (9) Systolic dysfunction: Code(s): I51.9 - Heart disease, unspecified Status: Acute Assessment and Plan: Acute systolic dysfunction due to NSTEMI, but euvolemic. On Coreg. Hold off on Entresto due to acute on CKD. Subjective Date/time seen: 09/28/22 08:40 Interval history: Denies any more chest pain. No sob. Exam Const: General: cooperative, healthy appearing and comfortable Orientation/consciousness: oriented to person, oriented to place and oriented to time Resp: Auscultation: clear to auscultation bilaterally, no crackles, no rales, no rhonchi and no wheezes Cardio: Rate: regular rate Rhythm: regular rhythm Heart sounds: no murmurs Peripheral pulses: dorsalis pedis present Neuro: General: oriented to person, oriented to place and oriented to time Extrem: Right lower extremity: no edema Left lower extremity: no edema Objective Data Vital Signs Vital Signs: Vital Signs - 24 hr 09/27/22 08:00 09/27/22 08:47 09/27/22 08:00 Temperature 97.1 F L Pulse Rate 65 78 67 Respiratory Rate 18 Blood Pressure 161/89 H Pulse Oximetry 96 Oxygen Delivery Oxygen Flow Rate 09/27/22 08:00 09/27/22 12:00 09/27/22 12:00 Temperature Pulse Rate 78 74 Respiratory Rate 18 Blood Pressure Pulse Oximetry 96 96 Oxygen Delivery Room Air Room Air Oxygen Flow Rate 09/27/22 12:00 09/27/22 14:00 09/27/22 15:12 Temperature 96.8 F L Pulse Rate 73 88 88 Respiratory Rate 18 18 Blood Pressure 155/81 H Pulse Oximetry 99 99 Oxygen Delivery Room Air Oxygen F
[2022-09-28] MEDS: ACETAMINOPHEN 325 MG TABLET 650 MG PO (08:42)
[2022-09-28] MEDS: amLODIPine BESYLATE 5 MG TABLET 10 MG PO (08:44)
[2022-09-28] MEDS: ASPIRIN 81 MG CHEWABLE TABLET PO (08:44)
[2022-09-28] MEDS: buPROPion HCL SR (12 HR) 150 MG TAB PO (08:45)
[2022-09-28] MEDS: ATORVASTATIN 40 MG TABLET 80 MG PO (08:45)
[2022-09-28] MEDS: FLUTICASONE PROPIONATE 0.05% NA SPR 16 GM BTL (*BKC) 2 SPRAY NASAL (08:46)
[2022-09-28] MEDS: CITALOPRAM HYDROBROMIDE 20 MG TABLET PO (08:46)
[2022-09-28] MEDS: GABAPENTIN 300 MG CAPSULE PO ×3 (08:46→17:20)
[2022-09-28] MEDS: carvediloL 6.25 MG TABLET PO ×2 (09:32→20:58)
--- NOTE | 2022-09-28 09:40 | PM.CNNEP ---
Assessment and Plan Assessment and plan (1) Chronic kidney disease, stage 4 (severe): Code(s): N18.4 - Chronic kidney disease, stage 4 (severe) Status: Acute Assessment and Plan: the patient has chronic kidney disease. This is not been fully evaluated. I suspect that hypertension and diabetes have something to do with this. She also has peripheral vascular disease and smokes and so could have some occult vascular disease in the kidneys. there are other causes of kidney disease as well such as obstruction, glomerulonephritis, interstitial nephritis, and infiltrative diseases. Will evaluate these. Will check serology, immunofixation, renal ultrasound. (2) Acute kidney injury: Code(s): N17.9 - Acute kidney failure, unspecified Status: Acute Assessment and Plan: The patient has acute kidney failure superimposed on her chronic kidney disease. Judging from the story and the high sugars that she has been having, I suspect that she might be dehydrated. It is not uncommon for people with chest pain to be dehydrated could they do not feel like eating or drinking. In addition the patient was taking ibuprofen off and on lately which could affect the creatinine as well. Rhabdomyolysis could do this as well so will check a CPK. Will check urine electrolytes, and CPK. Will give gentle IV fluids. (3) Diabetes mellitus: Qualifiers: Diabetes mellitus type: type 2 Diabetes mellitus termite exterminator helper insulin use: without termite exterminator helper use Diabetes mellitus complication status: with kidney complications Diabetes mellitus complication detail: with chronic kidney disease Chronic kidney disease stage: stage 3 (moderate) Qualified Code(s): E11.22 - Type 2 diabetes mellitus with diabetic chronic kidney disease; N18.3 - Chronic kidney disease, stage 3 (moderate) Code(s): E11.9 - Type 2 diabetes mellitus without complications Status: Chronic Assessment and Plan: She is on Accu-Cheks and insulin sliding scale per hospitalist. (4) HTN (hypertension) with goal to be determined: Code(s): I10 - Essential (primary) hypertension Status: Chronic Assessment and Plan: Her blood pressure is high. Was higher in the ER but has come down some. She had run out of medication. She is currently back on carvedilol and amlodipine. The carvedilol was just increased a few minutes ago. (5) Tobacco dependence: Code(s): F17.200 - Nicotine dependence, unspecified, uncomplicated Status: Acute Assessment and Plan: Patient has not smoked in the last week or 2. Hopefully she will stay off the cigarettes (6) Sinusitis: Qualifiers: Chronicity: acute Recurrence: not specified as recurrent Sinusitis location: unspecified location Qualified Code(s): J01.90 - Acute sinusitis, unspecified Code(s): J32.9 - Chronic sinusitis, unspecified Status: Acute Assessment and Plan: she was on antibiotics before. The stopped a while back so I do not think these have anything to do with the current issue (7) Chest pain: Code(s): R07.9 - Chest pain, unspecified Status: Acute Assessment and Plan: the patient does have high troponin. It is 6.67 and on the rise. She did have some chest pain last night and again earlier this more and is having some now. The nurse was told and she is getting some morphine. Cardiology is on the case History of Present Illness Reason for Consult Consult date: 09/28/22 Chief Complaint Chief complaint: non stemi,chest pain,chronic renal insufficiency,d History of Present Illness Narrative: Caryn is a very pleasant 61-year-old lady who has multiple medical problems including diabetes, hypertension, chronic kidney disease with a baseline creatinine of 2, chronic low back pain, peripheral vascular disease , peripheral vascular disease, hypothyroidism, and depression.. The patient says she h
[2022-09-28] MEDS: MORPHINE SULFATE (*CRX) 2 MG/ML INJ IV PUSH (10:01)
[2022-09-28 10:17] LABS: Creatine Kinase 203 U/L (30-135)
[2022-09-28 10:25] LABS: Complement C3 108 mg/dL (88-165)
[2022-09-28 10:48] LABS: Parathyroid Intact 286.5 pg/mL (7.5-53.5)
[2022-09-28 11:40] LABS: Glucose Point of Care 235 mg/dl (65-105)
[2022-09-28] MEDS: INSULIN ASPART (*BKC) 100 UNITS/ML SUB-Q (12:29)
--- NOTE | 2022-09-28 12:32 | PM.IMPN ---
Progress Note: A&P Assessment and Plan (1) Non-ST elevated myocardial infarction: Code(s): I21.4 - Non-ST elevation (NSTEMI) myocardial infarction Status: Acute (2) Hypertensive emergency without congestive heart failure: Code(s): I16.1 - Hypertensive emergency Status: Acute (3) Acute kidney injury superimposed on CKD: Code(s): N17.9 - Acute kidney failure, unspecified; N18.9 - Chronic kidney disease, unspecified Status: Acute (4) Diabetes mellitus: Qualifiers: Diabetes mellitus type: type 2 Diabetes mellitus pigment processor insulin use: without pigment processor use Diabetes mellitus complication status: with kidney complications Diabetes mellitus complication detail: with chronic kidney disease Chronic kidney disease stage: stage 3 (moderate) Qualified Code(s): E11.22 - Type 2 diabetes mellitus with diabetic chronic kidney disease; N18.3 - Chronic kidney disease, stage 3 (moderate) Code(s): E11.9 - Type 2 diabetes mellitus without complications Status: Chronic (5) PVD (peripheral vascular disease): Code(s): I73.9 - Peripheral vascular disease, unspecified Status: Chronic Plan # chest pain EKG with T-wave inversions and ST depressions no ST elevations. Now with elevated troponin suggestive of non ST-elevation AL. on heparin drip. Aspirin. Echo with basal and apical inferoposterior and lateral wall with severe hypokinesis see a. LVEF 35-40%. Monitor renal function # non ST-elevation AL on heparin drip aspirin cardiology following plan for left heart catheterization in few days when renal function more stable /improved # hypertensive emergency blood pressure improved was given nitro. On amlodipine blood pressures improved And stable # RADHA on CKD stage 3 creatinine at 2.8 on admission. Started on IV fluid. Renal ultrasound without hydronephrosis. On IV fluid trial as per Nephrology # type 2 diabetes mellitus on oral medication a1c at 7.9. # congestive heart failure not in exacerbation. Will hold IV fluid. EF low at 35 to 40%. nephroogy started on ivf. # hypothyroidism continue levothyroxine # hyperlipidemia atorvastatin lipid profile with LDL 165 on atorvastatin # secondary hyperparathyroidism # hyperuricemia # peripheral neuropathy # peripheral vascular disease status post PTCA left leg in the past on aspirin and statin # tobacco abuse # anxiety depression # DVT prophylaxis on heparin drip # code status full code Subjective Date/time seen: 09/28/22 12:32 Interval history: Patient presented with chest pain precordial last for several related to upper shoulders. Currently complaining of headache. Not been taking her usual reviewed chest so SC renal fever. Blood pressure was elevated in the ER. 09/28/2022: Feels a bit better. Sinus headache pain. Getting Flonase nasal spray. No further chest pain. Review of Systems Review of Systems: All systems reviewed & are unremarkable except as noted in HPI and below Exam Narrative: GENERAL: Well-appearing, well-nourished, and in no acute distress. HEAD: Normocephalic, atraumatic. EYES: PERRLA and EOMI. ENT: Nares clear, no rhinorrhea or epistaxis.? Mucous membranes moist. NECK: Supple. CHEST: Clear to auscultation.? No respiratory distress. HEART: Regular rate and rhythm.? No murmur heard.? Normal peripheral pulses. ABDOMEN: Soft, nontender, nondistended, normal active bowel sounds. EXTREMITIES: Normal range of motion.? No edema. SKIN: Warm, dry, no rash. NEURO: No focal deficits.? Alert and oriented x3. PSYCH: Normal mood and affect. Objective Data Vital Signs Vital Signs: Vital Signs - 24 hr 09/27/22 12:00 09/27/22 12:00 09/27/22 12:00 Temperature 96.8 F L Pulse Rate 78 74 73 Respiratory Rate 18 18 Blood Pressure 155/81 H Pulse Oximetry 96 99 Oxygen Delivery Room Air Oxygen Flow Rate 09/27/22 14:00 09/27/22 15:12 09/27/22 16:00 Temperature Pulse Rate 88 88 67 Respir
[2022-09-28 12:55] LABS: Basophils Percent Auto 0.3 % (0.2-1.2); Eosinophils Absolute Auto 0.2 K/mm3 (0-0.3); Eosinophils Percent Auto 2.7 % (0-4.4); Hematocrit 36.8 % (37.0-47.0); Hemoglobin 12.3 g/dL (12.0-15.0); Immature Granulocyte Absolute 0.02 K/mm3 (0.00-0.031); Immature Granulocyte Percent A 0.3 % (0-0.5); Lymphocytes Absolute Auto 1.97 K/mm3 (0.9-3.2); Lymphocytes Percent Auto 29.9 % (18.3-44.2); Mean Corpuscular HGB Conc 33.4 g/dl (32-36); Mean Corpuscular Hemoglobin 33.2 pg (26-34); Mean Corpuscular Volume 99.2 fl (80-100); Mean Platelet Volume 10.1 fl (7.4-10.4); Monocytes Absolute Auto 0.4 K/mm3 (0.1-0.6); Monocytes Percent Auto 6.7 % (2.6-8.5); Neutrophils Percent Auto 60.1 % (45.5-73.1); Platelet Count Result 157 k/mm3 (150-375); Red Blood Count 3.71 M/mm3 (4.2-5.4); Red Cell Distribution Width 13.2 % (11.5-14.5); White Blood Count 6.6 K/mm3 (4.5-10.0)
[2022-09-28 13:04] LABS: Partial Thromboplastin Time 68.4 SECONDS (22.3-36.8)
[2022-09-28] MEDS: HEPARIN SODIUM 5,000 UNITS/ML VIAL 2500 UNITS IV PUSH (14:06)
[2022-09-28] MEDS: HEPARIN SOD/D5W 100 UNITS/ML 25,000 UNITS/250 ML BAG 12 UNITS IV CONT (14:06)
[2022-09-28 14:15] LABS: Erythrocyte Sedimentation Rate 70 mm/hr (0-20)
[2022-09-28 17:33] LABS: Glucose Point of Care 172 mg/dl (65-105)
[2022-09-28 18:03] LABS: Appearance Urine Clear (Clear); Bacteria Urine None Seen /hpf; Bilirubin Urine Negative (Negative); Blood Urine Trace (Negative); Color Urine Yellow (Yellow); Glucose Urine UA 1+ mg/dL (Negative); Ketones Urine Negative (Negative); Leukocyte Esterase Ur Trace LEU/UL (NEGATIVE); Nitrate Urine Negative (Negative); Non Pathogenic Casts 0-2; Protein Urine 3+ mg/dL (Negative); RBC Urine 0-2 /hpf (0-2); Specific Grav Ur 1.013 (1.001-1.035); Squamous Epithelial Cell Urine Occasional /hpf (Few); Urobilinogen Urine 0.2 mg/dL (<2.0); pH Urine 5.5 (5.0-9.0)
[2022-09-28 18:06] LABS: Creatinine Urine 58.7 mg/dL
[2022-09-28 18:14] LABS: Sodium Urine Random 45 meq/L
[2022-09-28 18:16] LABS: Total Protein Urine Random > 500 mg/dL
[2022-09-28 18:19] LABS: Add Urine Microscopic? YES
[2022-09-28] MEDS: SODIUM CHLORIDE 0.9% IV 1,000 ML 75 ML IV CONT (19:04)
[2022-09-29] VITALS (18 sets, daily range): BP systolic 118–167; BP diastolic 55–83; PULSE 56–70; RESP 12–20; TEMP 35.9–37; O2SAT 92–100
[2022-09-29 02:11] LABS: Glucose Point of Care 173 mg/dl (65-105)
[2022-09-29 03:29] LABS: Basophils Percent Auto 0.4 % (0.2-1.2); Eosinophils Absolute Auto 0.2 K/mm3 (0-0.3); Eosinophils Percent Auto 3.3 % (0-4.4); Hematocrit 39.8 % (37.0-47.0); Hemoglobin 13.1 g/dL (12.0-15.0); Immature Granulocyte Absolute 0.02 K/mm3 (0.00-0.031); Immature Granulocyte Percent A 0.3 % (0-0.5); Lymphocytes Absolute Auto 2.04 K/mm3 (0.9-3.2); Lymphocytes Percent Auto 29.7 % (18.3-44.2); Mean Corpuscular HGB Conc 32.9 g/dl (32-36); Mean Corpuscular Hemoglobin 32.8 pg (26-34); Mean Corpuscular Volume 99.7 fl (80-100); Monocytes Absolute Auto 0.4 K/mm3 (0.1-0.6); Monocytes Percent Auto 6.4 % (2.6-8.5); Neutrophils Absolute Auto 4.1 K/mm3 (1.3-6.7); Neutrophils Percent Auto 59.9 % (45.5-73.1); Platelet Count Result 146 k/mm3 (150-375); Red Blood Count 3.99 M/mm3 (4.2-5.4); White Blood Count 6.9 K/mm3 (4.5-10.0)
[2022-09-29] MEDS: MORPHINE SULFATE (*CRX) 2 MG/ML INJ IV PUSH (03:33)
[2022-09-29 03:46] LABS: Partial Thromboplastin Time 89.7 SECONDS (22.3-36.8)
[2022-09-29 03:52] LABS: Alanine Aminotransferase 19 U/L (6-35); Albumin Level 3.6 g/dL (3.5-5.1); Alkaline Phosphatase 73 U/L (38-126); Anion Gap 1 mmol/L (8-16); Aspartate Amino Transferase 43 U/L (14-36); Bilirubin,Total 0.5 mg/dL (0.2-1.3); Blood Urea Nitrogen 31 mg/dL (7-17); Calcium 8.8 mg/dL (8.4-10.2); Carbon Dioxide 27 mmol/L (22-30); Chloride 106 mmol/L (98-107); Estimated CRCL calculation 20 ml/min; Estimated Glomerular Filt Rate 18; Glucose 135 mg/dL (65-110); Magnesium 1.8 mg/dL (1.6-2.3); Phosphorus 4.7 mg/dL (2.5-4.5); Potassium 4.2 mmol/L (3.4-5.0); Sodium 134 mmol/L (137-145)
[2022-09-29] MEDS: NITROGLYCERIN OINTMENT 1 INCH DOSE TRANSDERM ×3 (06:07→17:06)
[2022-09-29] MEDS: LEVOTHYROXINE SODIUM 125 MCG TABLET PO (06:07)
--- NOTE | 2022-09-29 07:51 | PM.PNCARD ---
Progress Note: A&P Assessment and Plan (1) Chest pain: Code(s): R07.9 - Chest pain, unspecified Status: Acute Assessment and Plan: Mild, intermittent. (2) Non-ST elevated myocardial infarction: Code(s): I21.4 - Non-ST elevation (NSTEMI) myocardial infarction Status: Acute Assessment and Plan: Troponin increased 6.6. Trend troponin to peak. 09/27/22 Echo: EF 35-40%, Basal to apical inferoposterior and lateral huston are severely hypokinetic, mod LVH, grade I diastolic dysfunction (E/e' 20), mild LAE, mild MR. Continue aspirin daily, heparin drip, started Atorvastatin 80 mg daily and increase Carvedilol 12.5 mg BID. Discuss risks/benefits/alternative to LHC and she is agreeable to it. Keep NPO. Consult HCG for procedure. (3) Acute kidney injury superimposed on CKD: Code(s): N17.9 - Acute kidney failure, unspecified; N18.9 - Chronic kidney disease, unspecified Status: Acute Assessment and Plan: Nephrology following. Monitor. (4) HTN (hypertension) with goal to be determined: Code(s): I10 - Essential (primary) hypertension Status: Chronic Assessment and Plan: Increase carvedilol 6.25 mg BID. On Amlodipine. Monitor BP. (5) Tobacco dependence: Code(s): F17.200 - Nicotine dependence, unspecified, uncomplicated Status: Acute Assessment and Plan: Counseled regarding smoking cessation. (6) Diabetes mellitus: Qualifiers: Diabetes mellitus type: type 2 Diabetes mellitus chcf insulin use: without chcf use Diabetes mellitus complication status: with kidney complications Diabetes mellitus complication detail: with chronic kidney disease Chronic kidney disease stage: stage 3 (moderate) Qualified Code(s): E11.22 - Type 2 diabetes mellitus with diabetic chronic kidney disease; N18.3 - Chronic kidney disease, stage 3 (moderate) Code(s): E11.9 - Type 2 diabetes mellitus without complications Status: Chronic Assessment and Plan: Manage as per hospitalist. (7) PVD (peripheral vascular disease): Code(s): I73.9 - Peripheral vascular disease, unspecified Status: Chronic Assessment and Plan: Stable. (8) PSVT (paroxysmal supraventricular tachycardia): Code(s): I47.1 - Supraventricular tachycardia Status: Acute Assessment and Plan: History of PSVT. Stable. (9) Systolic dysfunction: Code(s): I51.9 - Heart disease, unspecified Status: Acute Assessment and Plan: Acute systolic dysfunction due to NSTEMI, but euvolemic. On Coreg. Hold off on Entresto due to acute on CKD. Subjective Date/time seen: 09/29/22 07:51 Interval history: Reports mild intermittent chest pain. No sob. Exam Const: General: cooperative, healthy appearing and comfortable Orientation/consciousness: oriented to person, oriented to place and oriented to time Resp: Auscultation: clear to auscultation bilaterally, no crackles, no rales, no rhonchi and no wheezes Cardio: Rate: regular rate Rhythm: regular rhythm Heart sounds: no murmurs Peripheral pulses: dorsalis pedis present Neuro: General: oriented to person, oriented to place and oriented to time Extrem: Right lower extremity: no edema Left lower extremity: no edema Objective Data Vital Signs Vital Signs: Vital Signs - 24 hr 09/28/22 08:00 09/28/22 09:32 09/28/22 08:00 Temperature 97.9 F Pulse Rate 67 75 78 Respiratory Rate 16 Blood Pressure 160/80 H Pulse Oximetry 98 Oxygen Delivery Oxygen Flow Rate 09/28/22 08:00 09/28/22 10:00 09/28/22 12:00 Temperature 98.1 F Pulse Rate 69 72 Respiratory Rate 16 Blood Pressure 114/72 Pulse Oximetry 100 97 Oxygen Delivery Nasal Cannula Oxygen Flow Rate 4 09/28/22 12:00 09/28/22 12:00 09/28/22 14:00 Temperature Pulse Rate 69 65 Respiratory Rate Blood Pressure Pulse Oximetry 99 Oxygen Delivery Nasal Cannula
[2022-09-29 07:56] LABS: Glucose Point of Care 132 mg/dl (65-105)
--- NOTE | 2022-09-29 08:17 | PM.PNNEP ---
Progress Note: A&P Assessment and Plan (1) Chronic kidney disease, stage 4 (severe): Code(s): N18.4 - Chronic kidney disease, stage 4 (severe) Status: Acute Assessment and Plan: the patient has chronic kidney disease. Renal ultrasound showed normal kidneys Sed rate 70, C3 and C4 are normal. Rest of serology is pending CK 203, not high enough to bother the kidneys UA shows 11-20 white cells. UA on the 11th and show anything. The patient has no symptoms. Repeat this. Urine protein is very high, [id number]. Urine lytes are non pre renal I suspect that hypertension and diabetes have something to do with this. She also has peripheral vascular disease and smokes and so could have some occult vascular disease in the kidneys. It is unclear how much of this is acute and how much of this is chronic. Two years ago the creatinine was 1.7 and 6 years ago the creatinine was 2 so there is definitely an significant element of chronic kidney disease. In 2 years the creatinine might have worsened to 2.8 just with chronic progression. Will try to get some labs from Dr. Augustin to see if more recent tests have been done. If this is just her baseline then considering her cardiac symptoms we should probably proceed with catheterization. (2) Acute kidney injury: Code(s): N17.9 - Acute kidney failure, unspecified Status: Acute Assessment and Plan: Possible RADHA? The only reversible cause would be dehydration and stopping the ibuprofen. The latter has been done and her creatinine is no better. She received some IV fluids last night and her creatinine is still about the same. (3) Diabetes mellitus: Qualifiers: Diabetes mellitus type: type 2 Diabetes mellitus local driver insulin use: without local driver use Diabetes mellitus complication status: with kidney complications Diabetes mellitus complication detail: with chronic kidney disease Chronic kidney disease stage: stage 3 (moderate) Qualified Code(s): E11.22 - Type 2 diabetes mellitus with diabetic chronic kidney disease; N18.3 - Chronic kidney disease, stage 3 (moderate) Code(s): E11.9 - Type 2 diabetes mellitus without complications Status: Chronic Assessment and Plan: She is on Accu-Cheks and insulin sliding scale per hospitalist. (4) HTN (hypertension) with goal to be determined: Code(s): I10 - Essential (primary) hypertension Status: Chronic Assessment and Plan: Her blood pressure is high. She is on carvedilol and amlodipine. Will increase carvedilol to 12.5 (5) Tobacco dependence: Code(s): F17.200 - Nicotine dependence, unspecified, uncomplicated Status: Acute Assessment and Plan: Patient has not smoked in the last week or 2. Hopefully she will stay off the cigarettes (6) Sinusitis: Qualifiers: Chronicity: acute Recurrence: not specified as recurrent Sinusitis location: unspecified location Qualified Code(s): J01.90 - Acute sinusitis, unspecified Code(s): J32.9 - Chronic sinusitis, unspecified Status: Acute Assessment and Plan: she was on antibiotics before. The stopped a while back so I do not think these have anything to do with the current issue (7) Chest pain: Code(s): R07.9 - Chest pain, unspecified Status: Acute Assessment and Plan: the patient does have high troponin. It is 6.67 and on the rise. She did have some chest pain last night and again earlier this more and is having some now. The nurse was told and she is getting some morphine. Cardiology is on the case Subjective Date/time seen: 09/29/22 08:17 Interval history: Caryn is feeling about the same. He has intermittent chest pain. Review of Systems Cardiovascular: Cardiovascular: Reports no additional cardiovascular complaints Respiratory: Respiratory: Reports no additional respiratory complaints Gastrointestinal
[2022-09-29] MEDS: ATORVASTATIN 40 MG TABLET 80 MG PO (08:32)
[2022-09-29] MEDS: buPROPion HCL SR (12 HR) 150 MG TAB PO (08:33)
[2022-09-29] MEDS: amLODIPine BESYLATE 5 MG TABLET 10 MG PO (08:33)
[2022-09-29] MEDS: GABAPENTIN 300 MG CAPSULE PO ×3 (08:33→17:06)
[2022-09-29] MEDS: ASPIRIN 81 MG CHEWABLE TABLET PO (08:33)
[2022-09-29] MEDS: CITALOPRAM HYDROBROMIDE 20 MG TABLET PO (08:33)
[2022-09-29] MEDS: FLUTICASONE PROPIONATE 0.05% NA SPR 16 GM BTL (*BKC) 2 SPRAY NASAL (08:33)
[2022-09-29] MEDS: carvediloL 12.5 MG TABLET PO (09:00)
--- NOTE | 2022-09-29 09:40 | PC.NURSE ---
Pt to lab support service tech via bed for cardiac cath. Heparin paused.
--- NOTE | 2022-09-29 10:18 | PM.CNCAR ---
Assessment and Plan Assessment and plan (1) Non-ST elevated myocardial infarction: Code(s): I21.4 - Non-ST elevation (NSTEMI) myocardial infarction Status: Acute (2) Acute kidney injury superimposed on CKD: Code(s): N17.9 - Acute kidney failure, unspecified; N18.9 - Chronic kidney disease, unspecified Status: Acute Plan Coronary angiography, [facility], +/- PCI discussed with the patient, including indication for the procedure, procedural details, risks vs benefits of cardiac catheterization. Discussed with the patient that she is at higher risk for contrast induced RADHA. Will try to minimize contrast as much as possible. Patient agreeable to cath. Will proceed. History of Present Illness History of Present Illness Consult date/time: 09/29/22 10:18 Requesting physician: Jam Fung DO Consult reason: Other (Cardiac Cath) Reason For Visit: non stemi,chest pain,chronic renal insufficiency,d Narrative: Interventional Cardiology is consulted for cardiac cath. This is a 61-year-old female with a history of PAD s/p PTCA of left leg, diabetes, smoking who presented to [place] [facility] for chest pain. Patient had a stressful day at work prior to admission, she got home and was trying to relax and noted sharp pain radiating into her neck and headaches at 7PM. Reports a mild chest pain. Patient found with elevated troponins of now up to 7. Echocardiogram showed LVEF 35-40%, basal to apical inferoposterior and lateral huston are severely hypokinetic, moderate LVH. Given this, coronary angiography requested. Review of Systems Review of Systems: All systems reviewed & are unremarkable except as noted in HPI and below (HPI) [facility] Past Medical History Medical History Chronic kidney disease Chronic low back pain CKD stage 3 due to type 2 diabetes mellitus Depression Diabetes mellitus HTN (hypertension) with goal to be determined Hypothyroidism PVD (peripheral vascular disease) Surgical History Surgical History History of vascular surgery Family History Family History Mother Breast cancer Other Family history of chronic obstructive pulmonary disease Family history of malignant neoplasm Social History Social History Smoking packs per day: 0.25 Smoking cigarettes per day: 5.0 Years smoked: 35 Smoking pack-years: 8.75 Smoking status: Light tobacco smoker Tobacco type: cigarettes Smoking end date: 07/20/16 Alcohol intake: never Substance use: never Lack of Transportation: No Lack of Food: Sometimes True Current Housing: I Have Housing Concerned About Future Housing: No Difficulty Paying Gas/Electric Bills: No Difficulty Paying for Meds: No Currently Unemployed: No Education: Don't Know Difficulty w/ Childcare or Family Care: No Gender identity (if verbalized by the patient): Female Spiritual care concerns: No Agree to blood products: Yes Meds Home Medications and Allergies Home Medications Medication Instructions Recorded Confirmed Type bupropion HCl (smoking deter) 150 150 mg PO DAILY #180 tabs 12/23/21 09/27/22 Rx mg tablet,12 hr sustained-release(smoking deterrent) fluticasone propionate 50 See Rx Instructions .Route 08/25/22 09/27/22 Rx mcg/actuation nasal .COMPLEX #16 mL spray,suspension citalopram 20 mg tablet 20 mg PO DAILY 09/27/22 09/27/22 History gabapentin 300 mg capsule 300 mg PO TID 09/27/22 09/27/22 History levothyroxine 125 mcg tablet 125 mcg PO DAILY 09/27/22 09/27/22 History sitagliptin phosphate 50 mg tablet 50 mg PO DAILY 09/27/22 09/27/22 History (Januvia) Allergies Allergy/AdvReac Type Severity Reaction Status Date / Time hydrocodone Allergy Unknown Unknown Verified 09/27/22 01:00 Penicillins Allergy
--- NOTE | 2022-09-29 11:22 | WPDMODSED ---
Moderate Sedation Note-Pt Data Patient Data Diagnosis: NSTEMI Present Complaint: NSTEMI Procedure to be performed/Plan: Coronary angiography, LHC, +/- PCI Allergies Allergy/AdvReac Type Severity Reaction Status Date / Time hydrocodone Allergy Unknown Unknown Verified 09/27/22 01:00 Penicillins Allergy Unknown Rash Verified 09/27/22 01:00 Home Medications Medication Instructions Recorded Confirmed Type bupropion HCl (smoking deter) 150 150 mg PO DAILY #180 tabs 12/23/21 09/27/22 Rx mg tablet,12 hr sustained-release(smoking deterrent) fluticasone propionate 50 See Rx Instructions .Route 08/25/22 09/27/22 Rx mcg/actuation nasal .COMPLEX #16 mL spray,suspension citalopram 20 mg tablet 20 mg PO DAILY 09/27/22 09/27/22 History gabapentin 300 mg capsule 300 mg PO TID 09/27/22 09/27/22 History levothyroxine 125 mcg tablet 125 mcg PO DAILY 09/27/22 09/27/22 History sitagliptin phosphate 50 mg tablet 50 mg PO DAILY 09/27/22 09/27/22 History (Manish) Current Medications: Active Medications Acetaminophen (Acetaminophen 325 Mg Tablet) 650 mg PO Q4H PRN PRN Reason: Headache Last Admin: 09/28/22 08:42 Dose: 650 mg Amlodipine Besylate (Amlodipine Besylate 5 Mg Tablet) 10 mg PO QAM [facility] Last Admin: 09/29/22 08:33 Dose: 10 mg Aspirin (Aspirin 81 Mg Chewable Tablet) 81 mg PO DAILY@0800 [facility] Last Admin: 09/29/22 08:33 Dose: 81 mg Atorvastatin Calcium (Atorvastatin 40 Mg Tablet) 80 mg PO DAILY [facility] Last Admin: 09/29/22 08:32 Dose: 80 mg Bupropion HCl (Bupropion Hcl Sr (12 Hr) 150 Mg Tab) 150 mg PO DAILY [facility] Last Admin: 09/29/22 08:33 Dose: 150 mg Carvedilol (Carvedilol 12.5 Mg Tablet) 12.5 mg PO Q12HR [facility] Last Admin: 09/29/22 09:00 Dose: 12.5 mg Citalopram Hydrobromide (Citalopram Hydrobromide 20 Mg Tablet) 20 mg PO DAILY [facility] Last Admin: 09/29/22 08:33 Dose: 20 mg Dextrose (Dextrose 50% 25 Gm/50 Ml Syringe) 12.5 gm IV PUSH PRN PRN; Protocol PRN Reason: Hypoglycemia Fluticasone Propionate (Fluticasone Propionate 0.05% Na Spr 16 Gm Btl (*Bkc)) 2 spray NASAL DAILY [facility] Last Admin: 09/29/22 08:33 Dose: 2 spray Gabapentin (Gabapentin 300 Mg Capsule) 300 mg PO TID [facility] Last Admin: 09/29/22 08:33 Dose: 300 mg Glucagon (Glucagon For Inj 1 Mg Vial) 1 mg IM PRN PRN; Protocol PRN Reason: Hypoglycemia Glucose (Glucose Oral Gel 15 Gm Of Glucse In 37.5 Gm Tube) 15 gm PO PRN PRN; Protocol PRN Reason: Hypoglycemia Heparin Sodium (Porcine) (Heparin Sodium 5,000 Units/Ml Vial) 4,000 units IV PUSH PRN PRN PRN Reason: aPTT less than 55 seconds Last Admin: 09/27/22 10:02 Dose: 4,000 units Heparin Sodium (Porcine) (Heparin Sodium 5,000 Units/Ml Vial) 2,500 units IV PUSH PRN PRN PRN Reason: aPTT 55 - 70 seconds Last Admin: 09/28/22 14:06 Dose: 2,500 units Heparin Sodium/Dextrose (Heparin Sodium/D5w 100 Units/Ml) 25,000 units in 250 mls @ 0 mls/hr IV CONT .Q0M [facility]; Protocol Last Titration: 09/29/22 09:40 Dose: 0 units/hr, 0 mls/hr Dextrose (Dextrose 5% 1,000 Ml) 1,000 mls @ 100 mls/hr IVPB PRN PRN; Protocol PRN Reason: Hypoglycemia Sodium Chloride (Normal Saline Iv) 1,000 mls @ 125 mls/hr IV CONT .Q8H ONE Stop: 09/29/22 19:19 Insulin Aspart (Insulin Aspart (*Bkc) 100 Units/Ml) 2 - 5 units SUB-Q TIDWM [facility]; Protocol Last Admin: 09/29/22 08:20 Dose: Not Given Levothyroxine Sodium (Levothyroxine Sodium 125 Mcg Tablet) 125 mcg PO DAILY@0630 [facility] Last Admin: 09/29/22 06:07 Dose: 125 mcg Morphine Sulfate (Morphine Sulfate (*Crx) 2 Mg/Ml Inj) 2 mg IV PUSH Q2H PRN PRN Reason: Pain Rated 7-10 Last Admin: 09/29/22 03:33 Dose: 2 mg Nitroglycerin (Nitroglycerin Sl 0.4 Mg Tablet) 0.4 mg SUBLINGUAL Q5MIN PRN PRN Reason: Chest Pain Last Admin: 09/27/22 02:07 Dose: 0.4 mg Nitroglycerin (Nitroglycerin Ointment 1 Inch Dose) 1 inch TRANSDERM Q6HR [facility] Last Admin: 09/29/22 06:07 Dose: 1 inch Ondansetron HCl (Ondansetron Inj 4 Mg/2 Ml Vial) 4 mg IV PUSH Q4H [facility]
--- NOTE | 2022-09-29 11:24 | WPDCARDPROC ---
Cardiac Cath Procedure Note Date of procedure:: 09/29/22 Performing physician:: CATHETERIZATION LABORATORY REPORT Procedure Date: 09/29/2022 Snuff Box Finisher: Cris Diaz M.D., [facility]? Referring Physician: Dr. Fung Anesthesia: Versed and Fentanyl were ordered and given in my presence at 10:23, procedure ended at 11:13. Supervision of nurse monitored moderate sedation with Versed and Fentanyl was provided for 50 minutes. Total of Versed 2mg and Fentanyl 50mcg were administered by the Water Plant Maintenance Mechanic RN Barbara Almanza. Pre-op Diagnosis: Coronary artery disease, NSTEMI Post-op Diagnosis: 1. Multivessel coronary artery disease involving LAD, OM, RCA 2. Left ventricular end-diastolic pressure of 19mmHg Procedure(s): 1. Moderate sedation 2. Ultrasound-guided access of the right common femoral artery 3. Coronary angiography 4. Left heart cath 5. IFR of the LAD 6. Angioseal closure of the right common femoral artery Access Site: Right common femoral artery (radial access was not pursued as patient kept moving arm) Brief History and Clinical Indications: Patient is a 61-year-old female who is referred for [facility] for NSTEMI. All risks, benefits and alternatives to left heart catheterization with or without percutaneous coronary intervention was discussed at length with the patient. Risk of complications including but not limited to bleeding, infection, arrhythmia, stroke, worsening kidney function, blood loss, groin hematoma, limb loss, emergency coronary artery bypass grafting, and even were discussed with the patient and all questions were answered. The patient understood and wished to proceed. Time out called, patient name, date of , medical record number, allergies, procedure performed, identify Snuff Box Finisher, patient and staff member concurred with accurate data, procedure carried on. Findings: LEFT HEART CATHETERIZATION FINDINGS: 1. Left main: The left main coronary artery is widely patent without any significant obstructive disease. 2. Left anterior descending: The proximal LAD has mild 30% disease. The mid LAD immediately after the bifurcation of a diagonal branch has a borderline 70% stenosis (IFR was 0.81, which is positive for ischemia). The remainder of the LAD is diffusely diseased without obstructive disease. The LAD wraps the apex. The diagonal branches are of small caliber and with diffuse disease. 3. Left circumflex: The proximal LCX has mild diffuse disease. The mid LCX has mild-moderate diffuse disease. The AV groove circumflex is a small caliber vessel with diffuse disease. On the initial angiogram, OM-1 vessel has a 95-99% stenosis in its mid portion with LUCILLE 0 flow distal to the stenosis. During subsequent angios, there is recanalization of flow distal to the stenosis and into the distal vessel with LUCILLE 2 flow. OM-2 is a small caliber vessel with mild diffuse disease. 4. Right coronary artery: The RCA is the dominant vessel. The proximal RCA had mild diffuse disease. The mid RCA has mild diffuse disease with a focal 80% stenosis. The distal RCA has mild diffuse disease. The RPDA and RPLV branches are diffusely diseased as well. 5. Left ventricle: A. End-diastolic pressure 19mmHg. B. LV gram deferred. C. No significant gradient across aortic valve on catheter pullback. Description of Procedure: Informed consent signed and placed in the chart. Patient transferred to pharmacy laboratory technician room. Prepped and draped in usual sterile fashion. 2% lidocaine in right groin area. Micropuncture needle used to access right common femoral artery with Seldinger technique under fluoroscopic guidance. J wire advanced, micropuncture cannula placed. Right iliofemoral angiogram performed, access confirmed and micropuncture cannula exchanged for 5-FR sheath. 5F FL4 diagnostic catheter engaged Left Main Coronary Artery. 5F FR4 diagnostic catheter engaged Right Coronary Artery. Multiple orthogonal angiogram obtained and reviewed 5F P
--- NOTE | 2022-09-29 12:31 | PC.NURSE ---
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 No issues noted
[2022-09-29] MEDS: SODIUM CHLORIDE 0.9% IV 1,000 ML 125 ML IV CONT (12:55)
[2022-09-29 13:32] LABS: Glucose Point of Care 160 mg/dl (65-105)
--- NOTE | 2022-09-29 13:52 | PM.TDS ---
Transfer Discharge Sum: Prov Provider Date of admission: 09/27/22 02:45 Primary care physician: Ash Augustin MD Admitting clinician: Sommer Diaz MD Consults: 09/27/22 Consult to Physician Routine Comment: Consulting Provider: Jam Fung Reason for consultation: NSTEMI Has provider been notified: Yes 09/27/22 13:38 Consult to Physician Routine Comment: Consulting Provider: Juan Griffiths call centre supervisor/MD group to consult: Renal Reason for consultation: RADHA on CKD Has provider been notified: Yes 09/29/22 Consult to Physician Routine Comment: spoke with Aarti [email or web address](ER,US) Consulting Provider: Aarti Mcdaniel call centre supervisor/MD group to consult: HCG Reason for consultation: Left heart cath for NSTEMI Has provider been notified: Yes DS: Admitting Diagnosis Discharge Date 09/29/2022 Admitting Diagnosis Chest pain Transfer Discharge Sum: Med Medications Active and Home Medications: Home Medications bupropion HCl (smoking deter) 150 mg tablet,12 hr sustained-release(smoking deterrent) 150 mg PO DAILY #180 tabs 12/23/21 [Rx Confirmed 09/27/22] fluticasone propionate 50 mcg/actuation nasal spray,suspension See Rx Instructions .Route .COMPLEX #16 mL 08/25/22 [Rx Confirmed 09/27/22] citalopram 20 mg tablet 20 mg PO DAILY 09/27/22 [History Confirmed 09/27/22] gabapentin 300 mg capsule 300 mg PO TID 09/27/22 [History Confirmed 09/27/22] levothyroxine 125 mcg tablet 125 mcg PO DAILY 09/27/22 [History Confirmed 09/27/22] sitagliptin phosphate 50 mg tablet (Januvia) 50 mg PO DAILY 09/27/22 [History Confirmed 09/27/22] Active Medications Acetaminophen (Acetaminophen 325 Mg Tablet) 650 mg PO Q4H PRN PRN Reason: Headache Last Admin: 09/28/22 08:42 Dose: 650 mg Amlodipine Besylate (Amlodipine Besylate 5 Mg Tablet) 10 mg PO QAM [facility] Last Admin: 09/29/22 08:33 Dose: 10 mg Aspirin (Aspirin 81 Mg Chewable Tablet) 81 mg PO DAILY@0800 [facility] Last Admin: 03/13/23 08:33 Dose: 81 mg Atorvastatin Calcium (Atorvastatin 40 Mg Tablet) 80 mg PO DAILY [facility] Last Admin: 09/29/22 08:32 Dose: 80 mg Bupropion HCl (Bupropion Hcl Sr (12 Hr) 150 Mg Tab) 150 mg PO DAILY [facility] Last Admin: 09/29/22 08:33 Dose: 150 mg Carvedilol (Carvedilol 12.5 Mg Tablet) 12.5 mg PO Q12HR [facility] Last Admin: 09/29/22 09:00 Dose: 12.5 mg Citalopram Hydrobromide (Citalopram Hydrobromide 20 Mg Tablet) 20 mg PO DAILY [facility] Last Admin: 09/29/22 08:33 Dose: 20 mg Dextrose (Dextrose 50% 25 Gm/50 Ml Syringe) 12.5 gm IV PUSH PRN PRN; Protocol PRN Reason: Hypoglycemia Fluticasone Propionate (Fluticasone Propionate 0.05% Na Spr 16 Gm Btl (*Bkc)) 2 spray NASAL DAILY [facility] Last Admin: 09/29/22 08:33 Dose: 2 spray Gabapentin (Gabapentin 300 Mg Capsule) 300 mg PO TID [facility] Last Admin: 09/29/22 12:56 Dose: 300 mg Glucagon (Glucagon For Inj 1 Mg Vial) 1 mg IM PRN PRN; Protocol PRN Reason: Hypoglycemia Glucose (Glucose Oral Gel 15 Gm Of Glucse In 37.5 Gm Tube) 15 gm PO PRN PRN; Protocol PRN Reason: Hypoglycemia Heparin Sodium (Porcine) (Heparin Sodium 5,000 Units/Ml Vial) 4,000 units IV PUSH PRN PRN PRN Reason: aPTT less than 55 seconds Last Admin: 09/27/22 10:02 Dose: 4,000 units Heparin Sodium (Porcine) (Heparin Sodium 5,000 Units/Ml Vial) 2,500 units IV PUSH PRN PRN PRN Reason: aPTT 55 - 70 seconds Last Admin: 09/28/22 14:06 Dose: 2,500 units Heparin Sodium/Dextrose (Heparin Sodium/D5w 100 Units/Ml) 25,000 units in 250 mls @ 0 mls/hr IV CONT .Q0M [facility]; Protocol Last Titration: 09/29/22 09:40 Dose: 0 units/hr, 0 mls/hr Dextrose (Dextrose 5% 1,000 Ml) 1,000 mls @ 100 mls/hr IVPB PRN PRN; Protocol PRN Reason: Hypoglycemia Sodium Chloride (Normal Saline Iv) 1,000 mls @ 125 mls/hr IV CONT .Q8H ONE Stop: 09/29/22 19:19 Last Admin: 09/29/22 12:55 Dose: 125 mls/hr Insulin Aspart (Insulin Aspart (*Bkc) 100 Units/Ml) 2 - 5 units SUB-Q TIDWM BRAYAN; Protocol Last Admin: 09/29/22 12:56 Dose: Not Giv
[2022-09-29 15:43] LABS: SARS-CoV-2 RNA PCR Negative
[2022-09-29 16:30] LABS: Glucose Point of Care 213 mg/dl (65-105)
[2022-09-29] MEDS: INSULIN ASPART (*BKC) 100 UNITS/ML SUB-Q (17:05)
[2022-09-29 19:47] LABS: Partial Thromboplastin Time 28.4 SECONDS (22.3-36.8)
--- NOTE | 2022-09-29 19:48 | PC.NURSE ---
Pt transferred to [facility] room #[id number], via [facility]. Heparin gtt infusing. Report given to EDWAR Harper @ [phone]. All belongings packed and sent with patient
[2022-09-30 07:06] LABS: Activated Clotting Time 221 SEC (74-137)
[2022-09-30 07:06] LABS: Activated Clotting Time 131 SEC (74-137)
[2022-10-01 12:45] LABS: Kappa\\Lambda Light Chains 1.11 (0.26-1.65)
[2022-10-01 20:17] LABS: ANCA Screen Negative (Negative)
[2022-10-02 18:20] LABS: Anti Glomerular Basement Memb <1.0 AI (<1.0)
[2022-10-07 20:11] LABS: Albumin 70 %; Creat 24 Hr 0.84 g/24 h (0.50-2.15); Measured Kappa Chains 3.07 mg/dL (<2.00); Measured Lambda Chains 2.06 mg/dL (<2.00); Pro/Creat Ratio 6151 mg/g creat (<150); Protein,total, 24 Hr Ur 5191 mg/24 h (<150); Total Kappa Chains 89.03 mg/24 h; Total Lambda Chains 59.74 mg/24 h
== END 2022-09-29 20:19 | disposition short-term general hospital (02) | DRG 190 ==
LOC: ANHED 02:45 → ANHIMU 03:09
PROVIDERS: Internal Medicine; Internal Medicine Cardiovascular Disease; Internal Medicine Nephrology; Admitting Provider Internal Medicine; Emergency Provider Emergency Medicine; PCP Emergency Medicine; Visit Provider Family Medicine
PROC: 4A023N7 Measurement of Cardiac Sampling and Pressure, Left Heart, Percutaneous Approach (ICD-10-PCS; CPT 93452; principal; 2022-09-29 10:00)
PROC: 4A033BC Measurement of Arterial Pressure, Coronary, Percutaneous Approach (ICD-10-PCS; CPT 93571; 2022-09-29 10:00)
DX: I21.4 Non-ST elevation (NSTEMI) myocardial infarction (principal); E11.22 Type 2 diabetes mellitus with diabetic chronic kidney disease; E11.42 Type 2 diabetes mellitus with diabetic polyneuropathy; N17.9 Acute kidney failure, unspecified; N18.30 Chronic kidney disease, stage 3 unspecified; I50.9 Heart failure, unspecified; I13.0 Hypertensive heart and chronic kidney disease with heart failure and stage 1 through stage 4 chronic kidney disease, or unspecified chronic kidney disease; I25.10 Atherosclerotic heart disease of native coronary artery without angina pectoris; I73.9 Peripheral vascular disease, unspecified; E03.9 Hypothyroidism, unspecified; Z20.822 Contact with and (suspected) exposure to COVID-19; I16.1 Hypertensive emergency; Z87.891 Personal history of nicotine dependence; J32.9 Chronic sinusitis, unspecified; E78.5 Hyperlipidemia, unspecified; F41.8 Other specified anxiety disorders
CPT/HCPCS: 36415; 71045; 76775; 80053; 80061; 81001; 82550; 82570; 82948; 83036; 83520; 83690; 83735; 83880; 83883; 83970; 84100; 84156; 84300; 84484; 85025; 85055; 85610; 85652; 85730; 86036; 86038; 86160; 86162; 86334; 86335; 93005; 93306; 93458; 93571; 96374; 99285; A9270; C1760; C1769; C1887; C1894; G0269; J0461; J1644; J1815; J2250; J2270; J3010; J7030; J7040; U0003; U0005

== ENCOUNTER 2022-11-13 12:51 | Outpatient (NON) | payer OTHER, SELFPAY ==
[2022-11-13 13:44] LABS: Anion Gap 9 mmol/L (8-16); Blood Urea Nitrogen 50 mg/dL (7-17); Carbon Dioxide 20 mmol/L (22-30); Chloride 107 mmol/L (98-107); Estimated Glomerular Filt Rate 13; Glucose 162 mg/dL (65-110); Potassium 4.5 mmol/L (3.4-5.0); Sodium 136 mmol/L (137-145)
== END 2022-11-13 12:52 | disposition home or self-care (01) ==
PROVIDERS: PCP Emergency Medicine
DX: I50.9 Heart failure, unspecified (principal)
CPT/HCPCS: 80048

== ENCOUNTER 2023-01-28 08:52 | Outpatient (CLI) | payer OTHER, SELFPAY ==
--- NOTE | 2023-01-28 09:07 | ECHO_ITS ---
Patient Info Name: Caryn Jeffrey Age: 62 years : 1960 Gender: Female Ht: 64 in Wt: 160 lbs BSA: 1.83 m2 HR: 63 bpm BP: 161 / 84 mmHg Heart Rhythm: Sinus Rhythm Technical Quality: Fair Exam Date: 01/28/2023 9:15 AM Exam Location: [facility] Patient Status: Outpatient Admit Date: 01/28/2023 Staff Ordering Physician: Jam Fung DO Case Filler: Beti Craig RDCS Attending Provider: Jam Fung DO Referring Physician: Kenton LORENZ; Exam Type: CA echo doppler color flow Study Info Indications I51.9 - Heart disease, unspecified Complete two-dimensional, color flow and Doppler transthoracic echocardiogram is performed. Summary 1. Complete two-dimensional, color flow and Doppler transthoracic echocardiogram is performed. 2. Left ventricular chamber dimension is normal. 3. Left ventricular systolic function is normal, estimated at 60-65%. 4. There is mild concentric increased left ventricular wall thickness. 5. The left ventricular diastolic function is grade I diastolic dysfunction. 6. E/e' 14 is mildly elevated. 7. Left atrial chamber dimension is moderately enlarged. 8. There is mild aortic valve sclerosis. 9. The mitral valve has mildly calcified annulus. 10. No pulmonary hypertension, estimated pulmonary arterial systolic pressure is 23 mmHg. Left Ventricle E/e' 14 is mildly elevated. Left ventricular chamber dimension is normal. Left ventricular systolic function is normal, estimated at 60-65%. There is mild concentric increased left ventricular wall thickness. The left ventricular diastolic function is grade I diastolic dysfunction. Right Ventricle Right ventricular chamber dimension is normal. Right ventricular systolic function is normal. Left Atria Left atrial chamber dimension is moderately enlarged. Right Atria Right atrial chamber dimension is normal. Aortic Valve The aortic valve is trileaflet. There is mild aortic valve sclerosis. There is no aortic valve stenosis. There is no aortic valve regurgitation. Pulmonic Valve There is no pulmonic regurgitation. Mitral Valve The mitral valve has mildly calcified annulus. There is no mitral valve stenosis. There is no mitral valve regurgitation. Tricuspid Valve There is no tricuspid valve regurgitation. No pulmonary hypertension, estimated pulmonary arterial systolic pressure is 23 mmHg. Pericardium/Pleural There is no pericardial effusion. Inferior Vena Cava Normal inferior vena cava with >50% collapse upon inspiration consistent with normal right atrial pressure, 5 mmHg. Aorta The aortic root size at the sinus of Valsalva is normal. Left Ventricular Outflow Tract Name Value Normal LVOT 2D LVOT Diameter 2.0 cm LVOT Doppler LVOT Peak Gradient 2 mmHg LVOT Mean Gradient 1 mmHg LVOT VTI 18 cm LVOT VTI/AV VTI Ratio 0.5 LVOT Stroke Volume 54 ml LVOT CO 3.3 l/min LVOT CI 1.8 l/min/m2 Pulmonic Valve Name
== END 2023-01-28 08:53 | disposition home or self-care (01) ==
LOC: ANHCARD 08:52
PROVIDERS: PCP Emergency Medicine; Visit Provider Internal Medicine Cardiovascular Disease
DX: I51.9 Heart disease, unspecified (principal)
CPT/HCPCS: 93306

== ENCOUNTER 2023-07-14 17:18 | Emergency (ER) | payer MEDICAID, SELFPAY ==
--- NOTE | ~2023-07-14 | US_ITS ---
EXAMINATION: US venous doppler [facility] DATE: 07/14/2023 23:14 INDICATION: PAIN IN LEFT CALF X 2 DAYS . TECHNIQUE: Grayscale images without and with compression and Doppler images of the left lower extremi ty veins were obtained. COMPARISON: None FINDINGS: The left common femoral vein, profunda (deep) femoral vein, femoral vein, popliteal vein, peroneal v ein, posterior tibial veins, gastrocnemius vein, and greater saphenous vein are patent. IMPRESSION: Patent left lower extremity veins. No evidence of deep venous thrombosis. Reviewed, dictated and finalized at location K. [facility]
[2023-07-14 17:50] VITALS: BP 152/86; PULSE 67; RESP 16; TEMP 36.6; O2SAT 96
[2023-07-14] MEDS: ACETAMINOPHEN 500 MG TABLET 1000 MG PO (22:12)
[2023-07-14] MEDS: methylPREDNISolone SOD SUCC 125 MG VIAL IV PUSH (22:12)
[2023-07-14] MEDS: diazePAM INJ (*CRX) 10 MG/2 ML SYRINGE 2 MG IV PUSH (22:17)
[2023-07-14 22:26] LABS: Basophils Percent Auto 0.5 % (0.2-1.2); Eosinophils Absolute Auto 0.2 K/mm3 (0-0.3); Eosinophils Percent Auto 2.4 % (0-4.4); Hematocrit 40.8 % (37.0-47.0); Hemoglobin 13.4 g/dL (12.0-15.0); Immature Granulocyte Absolute 0.02 K/mm3 (0.00-0.031); Immature Granulocyte Percent A 0.2 % (0-0.5); Lymphocytes Absolute Auto 2.85 K/mm3 (0.9-3.2); Lymphocytes Percent Auto 35.6 % (18.3-44.2); Mean Corpuscular HGB Conc 32.8 g/dl (32-36); Mean Corpuscular Hemoglobin 31.6 pg (26-34); Mean Corpuscular Volume 96.2 fl (80-100); Mean Platelet Volume 9.6 fl (7.4-10.4); Monocytes Absolute Auto 0.5 K/mm3 (0.1-0.6); Monocytes Percent Auto 6.4 % (2.6-8.5); Neutrophils Absolute Auto 4.4 K/mm3 (1.3-6.7); Neutrophils Percent Auto 54.9 % (45.5-73.1); Platelet Count Result 186 k/mm3 (150-375); Red Blood Count 4.24 M/mm3 (4.2-5.4); Red Cell Distribution Width 13.4 % (11.5-14.5)
[2023-07-14 22:28] LABS: Estimated CRCL calculation 17 ml/min; Estimated Glomerular Filt Rate 15
[2023-07-14 22:40] LABS: INR 0.9; Prothrombin Time 13.1 Seconds (11.1-14.7)
[2023-07-14 22:41] LABS: Alanine Aminotransferase 23 U/L (6-35); Albumin Level 4.2 g/dL (3.5-5.1); Alkaline Phosphatase 120 U/L (38-126); Anion Gap 12 mmol/L (8-16); Aspartate Amino Transferase 31 U/L (14-36); Bilirubin,Total 0.5 mg/dL (0.2-1.3); Blood Urea Nitrogen 39 mg/dL (7-17); Calcium 9.5 mg/dL (8.4-10.2); Carbon Dioxide 19 mmol/L (22-30); Chloride 105 mmol/L (98-107); Estimated CRCL calculation 19 ml/min; Estimated Glomerular Filt Rate 17; Glucose 81 mg/dL (65-110); Partial Thromboplastin Time 26.9 SECONDS (22.3-36.8); Sodium 136 mmol/L (137-145)
[2023-07-15 00:15] VITALS: BP 148/82; PULSE 67; RESP 16; O2SAT 96
--- NOTE | 2023-07-15 00:35 | ED.LOWEXIN ---
HPI - Extremity Injury (Lower) General Chief Complaint: Extremity Injury, Lower Stated Complaint: back pain Time Seen by Provider: 07/14/23 20:40 Source: patient Mode of arrival: ambulatory Limitations: no limitations History of Present Illness HPI Narrative: patient is a 62-year-old female, with PMH of CAD s/p CABG, CKD, who presents the ED with report of left lower extremity pain. Patient reports having pain in her left lower leg for the last 2 days. She does have history of sciatica reports intermittent pain associated with this, but states this pain feels different. Patient does have history of diabetes with peripheral neuropathy, but again states this feels different. She is prescribed gabapentin, but denies improvement of pain with this. States over the last day, she has also noticed a purple discoloration to her left toes. She states her left foot feels cooler than her right. Denies numbness or tingling. Denies chest pain or shortness breath. Denies history of blood clots. Per records, Hx of PA s/p PCTA of LLE by Dr. Santana in 2018. Related Data Home Medications Medication Instructions Recorded Confirmed acetaminophen 500 mg capsule 1,000 mg PO Q6H PRN 11/17/22 12/05/22 glucagon HCl 1 mg solution for 1 mg subcut Q20M PRN 11/17/22 12/05/22 injection (Glucagon (HCl) Emergency Kit) insulin lispro 100 unit/mL See Rx Instructions subcut QHS 11/17/22 12/05/22 subcutaneous solution insulin lispro 100 unit/mL See Rx Instructions subcut TID 11/17/22 12/05/22 subcutaneous solution (Humalog U-100 Insulin) Allergies Allergy/AdvReac Type Severity Reaction Status Date / Time hydrocodone Allergy Unknown Unknown Verified 07/14/23 19:27 Penicillins Allergy Unknown Rash Verified 07/14/23 19:27 Review of Systems Review of Systems: CONSTITUTIONAL: Denies fever, chills, or sweats. MUSCULOSKELETAL: see HPI. NEUROLOGIC: Denies headache, dizziness, numbness, or weakness. All systems reviewed & are unremarkable except as noted in HPI and below PMFSH Past Medical History Medical History (Updated 07/15/23 @ 01:51 by Alessandra Khanna PA-C) Chronic kidney disease Chronic low back pain CKD stage 3 due to type 2 diabetes mellitus Depression Diabetes mellitus HTN (hypertension) with goal to be determined Hypothyroidism PVD (peripheral vascular disease) Surgical History Surgical History (Updated 07/15/23 @ 01:43 by Alessandra Khanna PA-C) History of vascular surgery Hx of CABG Family History Family History Mother Breast cancer Other Family history of chronic obstructive pulmonary disease Family history of malignant neoplasm Social History Social History Smoking packs per day: 1 Smoking cigarettes per day: 20.0 Years smoked: 21 Smoking pack-years: 21.00 Smoking status: Current some day smoker Tobacco type: cigarettes Smoking end date: 10/10/22 Alcohol intake: current Substance use: never Last use: drinks-duing holidays Lack of Transportation: No Lack of Food: Sometimes True Current Housing: I Have Housing Concerned About Future Housing: No Difficulty Paying Gas/Electric Bills: No Difficulty Paying for Meds: No Currently Unemployed: No Education: Don't Know Difficulty w/ Childcare or Family Care: No Gender identity (if verbalized by the patient): Female Spiritual care concerns: No Agree to blood products: Yes Exam Narrative: GENERAL: Well appearing, well-nourished, non-toxic, in no acute distress. HEAD: Normocephalic, atraumatic. RESPIRATORY: Airway patent, respirations nonlabored. Clear to auscultation bilaterally, no rales, rhonchi, wheezing. CARDIOVASCULAR: Regular rate and rhythm without murmurs, rubs, or gallops. Unable to palpate or Doppler left DP pulse. Able to Doppler left PT pulse. Pulses on right susan
[2023-07-15] MEDS: MORPHINE SULFATE (*CRX) 4 MG/ML INJ IV PUSH (01:58)
[2023-07-15] MEDS: ONDANSETRON INJ 4 MG/2 ML VIAL IV PUSH (01:58)
[2023-07-15 02:25] VITALS: BP 143/72; PULSE 64; RESP 15; TEMP 36.8; O2SAT 97
== END 2023-07-15 02:34 | disposition short-term general hospital (02) ==
PROVIDERS: Emergency Provider Physician Assistant; PCP Emergency Medicine
DX: E11.51 Type 2 diabetes mellitus with diabetic peripheral angiopathy without gangrene (principal); M79.662 Pain in left lower leg; R09.89 Other specified symptoms and signs involving the circulatory and respiratory systems; E11.42 Type 2 diabetes mellitus with diabetic polyneuropathy; I12.9 Hypertensive chronic kidney disease with stage 1 through stage 4 chronic kidney disease, or unspecified chronic kidney disease; E11.22 Type 2 diabetes mellitus with diabetic chronic kidney disease; N18.30 Chronic kidney disease, stage 3 unspecified; E03.9 Hypothyroidism, unspecified; F32.A Depression, unspecified; Z79.4 Long term (current) use of insulin; Z95.1 Presence of aortocoronary bypass graft; F17.210 Nicotine dependence, cigarettes, uncomplicated; Z79.84 Long term (current) use of oral hypoglycemic drugs; Z79.82 Long term (current) use of aspirin
CPT/HCPCS: 36415; 80053; 85025; 85610; 85730; 93971; 96374; 96375; 99285; A9270; J2270; J2405; J2930; J3360

== ENCOUNTER 2023-09-07 12:14 | Outpatient (CLI) | payer BC, MEDICAID, SELFPAY ==
[2023-09-07 13:13] LABS: Hematocrit 36.7 % (37.0-47.0); Hemoglobin 11.7 g/dL (12.0-15.0); Mean Corpuscular HGB Conc 31.9 g/dl (32-36); Mean Corpuscular Hemoglobin 31.3 pg (26-34); Mean Corpuscular Volume 98.1 fl (80-100); Mean Platelet Volume 10.4 fl (7.4-10.4); Platelet Count Result 145 k/mm3 (150-375); Red Blood Count 3.74 M/mm3 (4.2-5.4); Red Cell Distribution Width 13.6 % (11.5-14.5); White Blood Count 5.3 K/mm3 (4.5-10.0)
[2023-09-07 13:20] LABS: Albumin Level 3.8 g/dL (3.5-5.1); Anion Gap 5 mmol/L (8-16); Blood Urea Nitrogen 45 mg/dL (7-17); Calcium 8.8 mg/dL (8.4-10.2); Carbon Dioxide 25 mmol/L (22-30); Chloride 107 mmol/L (98-107); Cholesterol 120 mg/dL (0-200); Estimated Glomerular Filt Rate 12; Glucose 187 mg/dL (65-110); HDL Direct 43 mg/dL; Phosphorus 4.5 mg/dL (2.5-4.5); Potassium 3.9 mmol/L (3.4-5.0); Sodium 137 mmol/L (137-145); Triglycerides 175 mg/dL (<150)
[2023-09-07 13:23] LABS: Alanine Aminotransferase 29 U/L (6-35); Albumin Level 3.8 g/dL (3.5-5.1); Alkaline Phosphatase 132 U/L (38-126); Anion Gap 7 mmol/L (8-16); Aspartate Amino Transferase 29 U/L (14-36); Bilirubin,Total 0.5 mg/dL (0.2-1.3); Blood Urea Nitrogen 46 mg/dL (7-17); Calcium 8.6 mg/dL (8.4-10.2); Carbon Dioxide 23 mmol/L (22-30); Chloride 106 mmol/L (98-107); Estimated Glomerular Filt Rate 13; Glucose 189 mg/dL (65-110); Sodium 136 mmol/L (137-145)
[2023-09-07 13:31] LABS: LDL Cholesterol Direct 52 mg/dL; Parathyroid Intact 176.4 pg/mL (7.5-53.5)
[2023-09-07 14:20] LABS: Creatinine Urine 54.8 mg/dL
[2023-09-07 15:29] LABS: Hemoglobin A1C 7.1 % (<5.7)
[2023-09-07 15:33] LABS: Total Protein Urine Random 259 mg/dL; Ur Ttl Prot Creatinine Ratio 4.73 mg/mg (0-0.20)
== END 2023-09-07 12:15 | disposition home or self-care (01) ==
PROVIDERS: PCP Emergency Medicine; Visit Provider Internal Medicine Nephrology
DX: E78.5 Hyperlipidemia, unspecified (principal); E11.22 Type 2 diabetes mellitus with diabetic chronic kidney disease; N18.4 Chronic kidney disease, stage 4 (severe)
CPT/HCPCS: 36415; 80053; 80061; 80069; 82570; 83036; 83970; 84156; 85027

== ENCOUNTER 2023-10-01 17:21 | Emergency (ER) | payer OTHER, MEDICAID, SELFPAY ==
--- NOTE | ~2023-10-01 | CT_ITS ---
EXAMINATION: CT brain wo con DATE: 10/01/2023 20:40 INDICATION: Status post fall. Head injury. TECHNIQUE: Computed tomography (CT) of the head was performed without intravenous contrast. The dose- length product was 605.33 mGy-cm. Automated exposure control and iterative reconstruction technique w ere employed. COMPARISON: CT dated 11/15/2019 FINDINGS: Brain parenchymal volume is normal for age. There are scattered mild periventricular and ray bcortical white matter changes, most likely related to small vessel ischemic disease (microangiopathy ). Chronic right lacunar infarction. There is intracranial atherosclerosis. Prominent cisterna magna. No acute intracranial hemorrhage, infarction, mass or mass effect. No ventriculomegaly or midline sh ift. IMPRESSION: 1. No acute intracranial abnormality. No significant interval change. Reviewed, dictated and finalized at location A.
--- NOTE | ~2023-10-01 | CT_ITS ---
EXAMINATION: CT cervical spine wo con DATE: 10/01/2023 20:40 INDICATION: Neck pain after fall TECHNIQUE: Computed tomography (CT) of the cervical spine was performed without intravenous contrast. The dose-length product was 455 mGy-cm. Automated exposure control and iterative reconstruction tech nique were employed. COMPARISON: None FINDINGS: Reversal of cervical lordosis. There is mild multilevel degenerative spondylosis. Craniover tebral junction is normal. Odontoid process within normal limits. No acute fracture or traumatic mike lignment. There is multilevel uncinate and facet hypertrophy. Lung apices are unremarkable. No eviden ce for perched facet. Spinous processes are normal. IMPRESSION: 1. No acute abnormality of the cervical spine. Reviewed, dictated and finalized at location A.
--- NOTE | ~2023-10-01 | CT_ITS ---
EXAMINATION: CT LE LT wo con DATE: 10/01/2023 20:40 INDICATION: Proximal femoral swelling status post fall TECHNIQUE: Computed tomography (CT) of the left hip was performed without intravenous contrast. The d ose-length product was 652.80 mGy-cm. Automated exposure control and iterative reconstruction [employer] ue were employed. COMPARISON: None FINDINGS: There is mild subcutaneous stranding in the fatty soft tissues lateral to the left hip, lik jamilah hematoma from recent trauma. There is a benign-appearing cystic lesion of the left femoral neck. Mild osteoarthritis of the left hip. No acute fracture or traumatic malalignment. There is a coarsely calcified mass in the left adnexa measuring 2 cm, possibly ovarian. IMPRESSION: 1. No acute fracture. 2: Partially calcified 2 cm left adnexal mass, possibly ovarian. Consider follow-up ultrasound on a n onemergent basis. Reviewed, dictated and finalized at location A. IMPRESSION: 1. No acute fracture. 2: Partially calcified 2 cm left adnexal mass, possibly ovarian. Consider follo w-up ultrasound on a nonemergent basis.
[2023-10-01 18:15] VITALS: BP 135/83; PULSE 60; RESP 16; TEMP 37; O2SAT 100
--- NOTE | 2023-10-01 19:56 | ED.GENADULT ---
HPI - General Adult General Chief complaint: Head Injury Stated complaint: FALL FROM CHAIR, HEAD INJURY Time Seen by Provider: 10/01/23 19:45 Source: patient Mode of arrival: ambulatory Limitations: no limitations History of Present Illness HPI narrative: This is a 62-year-old female who presents to the ED with chief complaint of a fall today. Patient was at work and sitting on raised chair when she suffered a fall. Reports that she rolled the chair back and when she tried to move forward the chair went from under her. This caused her to fall directly onto the left side of her body. Reports left-sided neck pain and left thigh pain. Denies LOC, numbness, weakness, further sites of pain or injury. She does take anti-platelet and anticoagulant. Related Data Home Medications Medication Instructions Recorded Confirmed acetaminophen 500 mg capsule 1,000 mg PO Q6H PRN 11/17/22 09/08/23 glucagon HCl 1 mg solution for 1 mg subcut Q20M PRN 11/17/22 09/08/23 injection (Glucagon (HCl) Emergency Kit) insulin lispro 100 unit/mL See Rx Instructions subcut QHS 11/17/22 09/08/23 subcutaneous solution insulin lispro 100 unit/mL See Rx Instructions subcut TID 11/17/22 09/08/23 subcutaneous solution (Humalog U-100 Insulin) clopidogrel 75 mg tablet 75 mg PO DAILY 07/29/23 09/08/23 oxycodone 5 mg tablet 5 mg PO Q6H PRN 07/29/23 09/08/23 rivaroxaban 2.5 mg tablet (Xarelto) 2.5 mg PO BID 07/29/23 09/08/23 sennosides 8.6 mg-docusate sodium 2 tab-cap PO DAILY 07/29/23 09/08/23 50 mg tablet (Senna with Docusate Sodium) Allergies Allergy/AdvReac Type Severity Reaction Status Date / Time hydrocodone Allergy Unknown Unknown Verified 07/29/23 15:57 Penicillins Allergy Unknown Rash Verified 07/29/23 15:57 Review of Systems Review of Systems: All systems as dictated in [facility] Past Medical History Medical History Chronic kidney disease Chronic low back pain CKD stage 3 due to type 2 diabetes mellitus Depression Diabetes mellitus HTN (hypertension) with goal to be determined Hypothyroidism Peripheral arterial disease PVD (peripheral vascular disease) Surgical History Surgical History History of vascular surgery Hx of CABG Family History Family History Mother Breast cancer Other Family history of chronic obstructive pulmonary disease Family history of malignant neoplasm Social History Social History Smoking packs per day: 1 Smoking cigarettes per day: 20.0 Years smoked: 21 Smoking pack-years: 21.00 Smoking status: Former smoker Tobacco type: cigarettes Smoking end date: 10/10/22 Alcohol intake: current Substance use: never Last use: drinks-duing holidays Lack of Transportation: No Lack of Food: Sometimes True Current Housing: I Have Housing Concerned About Future Housing: No Difficulty Paying Gas/Electric Bills: No Difficulty Paying for Meds: No Currently Unemployed: No Education: Don't Know Difficulty w/ Childcare or Family Care: No Gender identity (if verbalized by the patient): Female Spiritual care concerns: No Agree to blood products: Yes Exam Narrative: GENERAL: Well-appearing, well-nourished, and in no acute distress. HEAD: Normocephalic, atraumatic. EYES: PERRLA and EOMI. ENT: Nares clear, no rhinorrhea or epistaxis. Mucous membranes moist. Oropharynx without tonsillar hypertrophy exudate or other lesions. NECK: Supple. No adenopathy or masses. Mild left-sided paraspinal tenderness to the cervical spine. No midline cervical tenderness. CHEST: No respiratory distress. Clear to auscultation. No wheezes rales or rhonchi HEART: Regular rate and rhythm. No murmur heard. Normal peripheral pulses. ABDOMEN: Soft, nontender, non
[2023-10-01] MEDS: ACETAMINOPHEN 500 MG TABLET 1000 MG PO (20:13)
[2023-10-01 20:34] LABS: Estimated CRCL calculation 13 ml/min; Estimated Glomerular Filt Rate 11
[2023-10-01 21:56] VITALS: BP 137/82; PULSE 69; RESP 19; TEMP 36.9; O2SAT 99
== END 2023-10-01 21:59 | disposition home or self-care (01) ==
PROVIDERS: Emergency Provider Physician Assistant; PCP Emergency Medicine
DX: S76.912A Strain of unspecified muscles, fascia and tendons at thigh level, left thigh, initial encounter (principal); S16.1XXA Strain of muscle, fascia and tendon at neck level, initial encounter; S70.12XA Contusion of left thigh, initial encounter; E11.22 Type 2 diabetes mellitus with diabetic chronic kidney disease; I12.9 Hypertensive chronic kidney disease with stage 1 through stage 4 chronic kidney disease, or unspecified chronic kidney disease; N18.30 Chronic kidney disease, stage 3 unspecified; E11.51 Type 2 diabetes mellitus with diabetic peripheral angiopathy without gangrene; I73.9 Peripheral vascular disease, unspecified; E03.9 Hypothyroidism, unspecified; Z95.1 Presence of aortocoronary bypass graft; Z87.891 Personal history of nicotine dependence; Z79.4 Long term (current) use of insulin; Z79.01 Long term (current) use of anticoagulants; Z79.84 Long term (current) use of oral hypoglycemic drugs; N94.89 Other specified conditions associated with female genital organs and menstrual cycle; W07.XXXA Fall from chair, initial encounter
CPT/HCPCS: 36415; 70450; 72125; 73700; 99284; A9270

== ENCOUNTER 2024-02-18 15:45 | Outpatient (CLI) | payer OTHER, SELFPAY ==
[2024-02-18 16:22] LABS: Hematocrit 37.7 % (37.0-47.0); Hemoglobin 12.4 g/dL (12.0-15.0); Mean Corpuscular HGB Conc 32.9 g/dl (32-36); Mean Corpuscular Hemoglobin 32.4 pg (26-34); Mean Corpuscular Volume 98.4 fl (80-100); Mean Platelet Volume 9.9 fl (7.4-10.4); Platelet Count Result 173 k/mm3 (150-375); Red Blood Count 3.83 M/mm3 (4.2-5.4); Red Cell Distribution Width 13.7 % (11.5-14.5); White Blood Count 6.6 K/mm3 (4.5-10.0)
[2024-02-18 16:35] LABS: Albumin Level 4.4 g/dL (3.5-5.1); Anion Gap 14 mmol/L (4-12); Blood Urea Nitrogen 54 mg/dL (7-17); Calcium 9.1 mg/dL (8.4-10.2); Carbon Dioxide 19 mmol/L (22-30); Chloride 102 mmol/L (98-107); Estimated Glomerular Filt Rate 12; Glucose 131 mg/dL (65-110); Phosphorus 6.2 mg/dL (2.5-4.5); Potassium 4.8 mmol/L (3.4-5.0); Sodium 135 mmol/L (137-145)
[2024-02-18 17:05] LABS: Parathyroid Intact 305.7 pg/mL (7.5-53.5)
[2024-02-18 17:17] LABS: Total Protein Urine Random 546 mg/dL; Ur Ttl Prot Creatinine Ratio 4.88 mg/mg (0-0.20)
== END 2024-02-18 15:46 | disposition home or self-care (01) ==
LOC: ANHLAB 15:46
PROVIDERS: PCP Emergency Medicine; Visit Provider Internal Medicine Nephrology
DX: N18.4 Chronic kidney disease, stage 4 (severe) (principal)
CPT/HCPCS: 36415; 80069; 82570; 83970; 84156; 85027

== ENCOUNTER 2024-12-14 19:44 | Emergency (ER) | payer MEDICAID, SELFPAY ==
--- NOTE | 2024-12-14 19:49 | ED.EYEPROB ---
HPI - Eye Problem General Chief complaint: Skin/Abscess/Foreign Body Stated complaint: pain in eye Time Seen by Provider: 12/14/24 19:55 Source: patient Mode of arrival: ambulatory Limitations: no limitations History of Present Illness HPI Narrative: Please is a 64-year-old female patient presenting to the clinic today with complaints of right lower eye lid pain and a boil to the left glute. He reports the boil has been there for approximately 1 week. Applied a pimple patch to her boil to help facilitate drainage. States the pain is getting worse and she cannot tolerate it any longer. Has been trying to do eyedrops in the right eye without relief. Denies any visual changes. No eye injury. Denies any known foreign body in the right eye. Denies any fevers, chills, body aches. States that it is very painful to sit on her bottom due to the boil. Related Data Home Medications ?Medication ?Instructions ?Recorded ?Confirmed ?Last Taken ?Type clopidogrel 75 mg tablet 75 mg PO DAILY 07/29/23 04/20/24 Unknown History rivaroxaban 2.5 mg tablet (Xarelto) 2.5 mg PO BID 07/29/23 04/20/24 Unknown History Allergies Allergy/AdvReac Type Severity Reaction Status Date / Time hydrocodone Allergy Unknown Nausea Verified 12/14/24 20:16 Penicillins Allergy Unknown Rash Verified 12/14/24 20:10 Review of Systems Review of Systems: Pertinent positives per HPI. Patient denies any fever, chills, rash, headache, visual changes, dizziness, cough, shortness of breath, chest pain, palpitations, nausea, vomiting, diarrhea, constipation, abdominal pain, or any urinary issues. 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 Mild single current episode of major depressive disorder Near syncope Neuropathy Pain at surgical incision Peripheral arterial disease Postoperative complication of skin involving drainage from surgical wound Prepatellar bursitis of left knee PVD (peripheral vascular disease) Seborrheic keratosis Shingles Sinusitis SOB (shortness of breath) Sprain and strain of left hand Surgical History Surgical History Hx of CABG History of vascular surgery Family History Family History Mother Breast cancer Other Family history of chronic obstructive pulmonary disease Family history of malignant neoplasm Social History Social History Smoking packs per day: 1 Smoking cigarettes per day: 20.0 Years smoked: 21 Smoking pack-years: 21.00 Smoking status: Former smoker Tobacco type: cigarettes Smoking end date: 10/10/22 Alcohol intake: current Substance use: never Last use: drinks-duing holidays Do You Feel Safe in your Home?: Yes Lack of Transportation: No Lack of Food: Sometimes True Current Housing: Decline to Answer Concerned About Future Housing: No Difficulty Paying Gas/Electric Bills: No Difficulty Paying for Meds: No Currently Unemployed: No Education: Trade/Vocational Certificate Difficulty w/ Childcare or Family Care: No Gender identity (if verbalized by the patient): Female Spiritual care concerns: No Agree to blood products: Yes Comments At the time of my signature, I reviewed and agree with the nursing past medical, surgical, social, and family history. There is no relevant family history pertinent to the patient complaint. Exam Narrative: General: Well-developed, well nourished, in no apparent distress Head: Normocephalic, atraumatic Eyes: Pupils equally round and reactive to light bilaterally, EOM intact, sclera and conjunctive clear, no discharge, right lower eyelid swollen with internal stye noted Ears: TMs intact and clear, ear canals clear, no drainage, grossly hearing normal. Nose: Nares patent, no discharge, no inflammation, no sinus tenderness. Mouth: Oral pharynx without lesions or masses, good dentition, MMM. Neck: Supple, trachea midline, no enlargement of anterior or posterior cervical nodes, no thyroid masses or goiter palpable. Cardio: Regular rate and rhythm, s1 and s2 normal, no murmur appreciated. Resp: Clear to auscultation bilaterally, no rhonchi, rales, wheezing or rubs Integumentary: Cougar, warm, and dry, 2.5x 2cm red, tender, indurated and fluctuant abscess to the left lower glut Course Course Emergency Course: Portions of this record may have been created with voice recognition software. Level of Care: Express Care Visit Vital Signs Vital signs: Vital Signs Temperature 36.6 C 12/14/24 19:53 Pulse Rate 101 H 12/14/24 19:53 Respiratory Rate 18 12/14/24 19:53 Blood Pressure 158/94 H 12/14/24 19:53 Pulse Oximetry 100 12/14/24 19:53 Oxygen Delivery Room Air 12/14/24 19:53 Temperature 36.6 C 12/14/24 19:53 Pulse Rate 101 H 12/14/24 19:53 Respiratory Rate 18 12/14/24 19:53 Blood Pressure 158/94 H 12/14/24 19:53 Pulse Oximetry 100 12/14/24 19:53 Oxygen Delivery Room Air 12/14/24 19:53 Vital signs reviewed Procedures Abscess I/D blaise-rectal: Date of Incision: 12/14/24 Side (if applicable): left Local Anesthetic: lidocaine 1% Amount of anesthesia used (mL): 2 Technique: incised with #11 blade Amount of fluid expressed (mL): 1 Irrigation: No Packing used?: none I&D Results: Pus and Blood Abcess I&D Additional Comments: Verbal consent obtained for incision and drainage. Risk and benefits explained and patient voiced understanding. Area was cleansed with antiseptic wound wash Area was prepped and draped using sterile technique. 27 gauge needle was then used to instill (2) ml of lidocaine without epi into the wound edges. Patient tolerated well and anesthesia was appropriate. An 11 blade scalpel was then used to make a 0.5cm incision over the abscess. White bloody exudate expressed from cavity. Wound culture obtained and sent to lab. Patient tolerated procedure well. MDM - Eye Problem MDM Narrative Medical decision making narrative: At the time of visit patient is resting comfortably on the exam table. Patient appears to be nontoxic. Procedures: Incision and drainage was performed. Wound culture was obtained and sent to the lab. Sterile dressing was applied. Patient tolerated well Plan: Patient has a perirectal abscess to the left glute. Area was measuring 2.5 x 2 cm with fluctuance. Incision and drainage was performed in the office. Wound culture was sent to the lab. Will place the patient on clindamycin and metronidazole. Patient is limited on what medication she can take due to allergies and current medications that will interact. Will also send in polymyxin eyedrops for the right lower eyelid stye. Supportive measures were discussed with the patient and they voiced understanding discharge instructions and agrees to treatment plan. Return precautions reviewed Differential Diagnosis Differential diagnosis: Likely corneal abrasion, conjunctivitis, acute iritis, hyphema, periorbital cellulitis, subconjunctival hemorrhage, glaucoma, corneal ulcer, ruptured globe and other (Cellulitis, perirectal abscess, James, skin infection) Discharge Plan Discharge Clinical Impression: Abscess, gluteal, left Hordeolum Qualifiers: Hordeolum type: internum Laterality: right Eyelid: lower Qualified Code(s): H00.022 - Hordeolum internum right lower eyelid Patient Disposition: Home Condition: Stable Instructions: Antibiotic Form, Stye (ED), Abscess (ED), Abscess Incision and Drainage (DC) Additional Instructions: Practice good hand washing techniques Avoid touching eyes Instill eyedrops as prescribed-polymyxin eyedrops May use warm moist washcloth to help remove eye discharge If eyes are matted shut-do not pry eyes open-use a warm moist cloth to loosen matting and wipe matter away from eye May take Tylenol/Motrin as needed for pain or fever May take Benadryl as needed for itching Follow-up with your PCP in 3-5 days if symptoms persist or sooner if they worsen Go to the emergency room if you develop any fever that is not controlled by Tylenol or Motrin, loss of vision, eye pain, increase eye swelling,visual changes, headache, confusion, lethargy, weakness, chest pain, or shortness of breath. Abscess discharge instructions Incision and drainage was performed in the clinic today Keep area clean and dry as much as possible Keep dressing applied if there is drainage. Apply warm compress to the affected area 4 times daily to help facilitate drainage Take antibiotics as prescribed-clindamycin and metronidazole Wound culture was sent to the lab Follow-up with your PCP in 2-3 days for wound check Go to the emergency room if symptoms worsen-you develop fever, increase in pain, increase in swelling, increase in redness, or any other concerning symptoms Patient Language: Angolan Prescriptions: New polymyxin B sulf-trimethoprim 10,000 unit- 1 mg/mL drops 1 drp RIGHT EYE Q3H 7 Days Qty: 10 0RF Rx Instructions: while awake; do not exceed 6 doses in 24 hours metronidazole 500 mg tablet 500 mg PO Q8H 7 Days Qty: 21 0RF clindamycin HCl [Cleocin HCl] 300 mg capsule 300 mg PO Q8H 7 Days Qty: 21 0RF No Action clopidogrel 75 mg tablet 75 mg PO DAILY Xarelto 2.5 mg tablet 2.5 mg PO BID citalopram 20 mg tablet 20 mg PO DAILY Qty: 30 0RF (DME) blood-glucose meter [True Metrix Glucose Meter] Kit See Rx Instructions .Route Qty: 1 0RF Rx Instructions: As directed (DME) True Metrix Glucose Test Strip Strip See Rx Instructions .Route Qty: 100 0RF Rx Instructions: As directed (DME) lancets [TRUEplus Lancets] 30 gauge misc See Rx Instructions .Route Qty: 100 0RF Rx Instructions: As directed atorvastatin 80 mg tablet 80 mg PO HS Qty: 90 2RF metoprolol succinate 25 mg tablet extended release 24 hr See Rx Instructions .ROUTE .COMPLEX Qty: 15 5RF Dose Instruction: Take 1/2 (one-half) tablet by mouth once daily Rx Instructions: Take 1/2 (one-half) tablet by mouth once daily levothyroxine 125 mcg tablet See Rx Instructions .ROUTE .COMPLEX Qty: 90 2RF Dose Instruction: TAKE 1 TABLET BY MOUTH ONCE DAILY AT 6:30 AM Rx Instructions: TAKE 1 TABLET BY MOUTH ONCE DAILY AT 6:30 AM bupropion HCl 150 mg tablet extended release 24 hr See Rx Instructions .ROUTE .COMPLEX Qty: 90 2RF Dose Instruction: Take 1 tablet by mouth once daily Rx Instructions: Take 1 tablet by mouth once daily Januvia 50 mg tablet See Rx Instructions .ROUTE .COMPLEX Qty: 90 2RF Dose Instruction: TAKE 1 TABLET BY MOUTH EVERY DAY Rx Instructions: TAKE 1 TABLET BY MOUTH EVERY DAY Follow-up/Referrals: Ash Augustin MD [Primary Care Provider] - Time of Disposition: 20:19 Quality NIHSS Nursing Documentation ED NIHSS nursing documentation: reviewed/agree
[2024-12-14 19:53] VITALS: BP 158/94; PULSE 101; RESP 18; TEMP 36.6; O2SAT 100
[2024-12-14] MEDS: LIDOCAINE 1% LOCAL INJ 2 ML AMPUL 4 ML INFILTRATE (20:30)
== END 2024-12-14 21:00 | disposition home or self-care (01) ==
PROVIDERS: Emergency Provider Nurse Practitioner Family; PCP Emergency Medicine
DX: L02.31 Cutaneous abscess of buttock (principal); H00.022 Hordeolum internum right lower eyelid; Z87.891 Personal history of nicotine dependence; I12.9 Hypertensive chronic kidney disease with stage 1 through stage 4 chronic kidney disease, or unspecified chronic kidney disease; E11.22 Type 2 diabetes mellitus with diabetic chronic kidney disease; N18.30 Chronic kidney disease, stage 3 unspecified; Z79.84 Long term (current) use of oral hypoglycemic drugs; E03.9 Hypothyroidism, unspecified; E11.40 Type 2 diabetes mellitus with diabetic neuropathy, unspecified; E11.51 Type 2 diabetes mellitus with diabetic peripheral angiopathy without gangrene; Z95.1 Presence of aortocoronary bypass graft; Z79.01 Long term (current) use of anticoagulants
CPT/HCPCS: 10060; 87070; 87075; 87205; 99213; G0463; J2003

== ENCOUNTER 2025-01-10 19:36 | Emergency (ER) | payer OTHER, SELFPAY ==
[2025-01-10 19:40] VITALS: BP 159/80; PULSE 65; RESP 16; TEMP 36.1; O2SAT 100
--- NOTE | 2025-01-10 19:40 | ED_ITS ---
HPI - Wound/Laceration General Chief Complaint: Wound/Laceration Stated Complaint: Wound Check Time Seen by Provider: 01/10/25 19:36 Source: patient Mode of arrival: ambulatory Limitations: no limitations History of Present Illness HPI narrative: Patient is a 64-year-old female who presents for wound check. Patient had abscess drained 12/14 and did not do follow-up as advised. Patient states it may be back. Patient states she does not want to go to her PCP for this because she does not want him looking at [her] butt. States she has been doing warm compresses. Related Data Home Medications ?Medication ?Instructions ?Recorded ?Confirmed ?Last Taken ?Type clopidogrel 75 mg tablet 75 mg PO DAILY 07/29/23 04/20/24 Unknown History rivaroxaban 2.5 mg tablet (Xarelto) 2.5 mg PO BID 07/29/23 04/20/24 Unknown History amlodipine 5 mg tablet mg 01/10/25 Unknown History Allergies Allergy/AdvReac Type Severity Reaction Status Date / Time hydrocodone Allergy Unknown Nausea Verified 01/10/25 19:39 Penicillins Allergy Unknown Rash Verified 01/10/25 19:39 Review of Systems 2 Review of Systems: All systems reviewed & are unremarkable except as noted in HPI and below Constitutional: Constitutional: Denies body ache(s), Denies chills, Denies fatigue, Denies fever(s), Denies headache(s), Denies malaise and Denies weakness Eyes: Eyes: Denies blurry vision, Denies irritation and Denies loss of vision ENT: Denies otalgia, Denies headache(s), Denies nasal discharge, Denies sinus pain and Denies sore throat Cardiovascular: Cardiovascular: Denies chest pain, Denies irregular heart rhythm and Denies dyspnea Respiratory: Respiratory: Denies dyspnea Gastrointestinal: Gastrointestinal: Denies abdominal pain, Denies melena, Denies hematochezia, Denies diarrhea, Denies nausea and Denies vomiting Musculoskeletal: Musculoskeletal: Denies back pain, Denies myalgias and Denies arthralgias Integumentary/Breasts: Skin/Breast: Denies pruritus, Denies rash and Reports wounds Neurologic: Denies headache(s), Denies loss of vision and Denies weakness Psychiatric: Psychiatric: Reports no additional psychiatric complaints Endocrine: Endocrine: Denies fatigue PMFSH Past Medical History Medical History Left ankle sprain Bronchitis SOB (shortness of breath) Prepatellar bursitis of left knee Neuropathy Mild single current episode of major depressive disorder 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 Avulsion fracture of distal fibula Abscess of right genital labia Peripheral arterial disease Deep incisional surgical site infection Pain at surgical incision Postoperative complication of skin involving drainage from surgical wound Acute kidney injury Sinusitis Seborrheic keratosis Gout CKD stage 3 due to type 2 diabetes mellitus Depression PVD (peripheral vascular disease) HTN (hypertension) with goal to be determined Hypothyroidism Sprain and strain of left hand Laceration of frenum of upper lip Bradycardia Near syncope Shingles Chronic kidney disease Chronic low back pain Diabetes mellitus Surgical History Surgical History Hx of CABG History of vascular surgery Family History Family History Mother Breast cancer Other Family history of chronic obstructive pulmonary disease Family history of malignant neoplasm Social History Social History Smoking packs per day: 1 Smoking cigarettes per day: 20.0 Years smoked: 21 Smoking pack-years: 21.00 Smoking status: Former smoker Tobacco type: cigarettes Smoking end date: 10/10/22 Alcohol intake: current Substance use: never Last use: drinks-duing holidays Do You Feel Safe in your Home?: Yes Lack of Transportation: No Lack of Food: Sometimes True Current Housing: Decline to Answer Concerned About Future Housing: No Difficulty Paying Gas/Electric Bills: No Difficulty Paying for Meds: No Currently Unemployed: No Education: Trade/Vocational Certificate Difficulty w/ Childcare or Family Care: No Gender identity (if verbalized by the patient): Female Spiritual care concerns: No Agree to blood products: Yes Comments At time of signature, agree with nursing past medical, surgical, social and family history. There is no relevant family history pertinent to the presenting complaint. Exam 2 Const: General: cooperative, healthy appearing, comfortable, no acute distress and well nourished Nutritional Appearance: well nourished O rientation/consciousness: patient oriented x3 Limitations: no limitations HENMT: Head: normal to inspection, normocephalic and atraumatic Ears: h earing grossly normal bilaterally and external ears normal Face/Nose/Sinus: N ormal external nose present, normal facial exam and face symmetric Face and sinus: normal facial exam and face symmetric Mouth: Yes lip normal Eyes: General: appearance normal, both eyes and all related structures A lignment and Position: alignment normal and position normal Periorbital: p eriorbital findings normal Eyelids: eyelids normal Pupils: Equal, round and reactive pupils present EOM: EOMs intact bilaterally Neck: Neck: normal visual inspection, full ROM and supple Chest: Chest palpation & inspection: normal inspection of the chest Resp: Effort & Inspection: normal respiratory effort and able to speak in complete sentences Auscultation: clear to auscultation bilaterally Cardio: Rate: regular rate Rhythm: regular rhythm Heart sounds: S1 normal heart sound present and S2 normal heart sound present GI: Inspection: normal to inspection Skin: General skin exam: normal color and no rashes or lesions noted Full body images: 1. 1x1 cm area of erythema and tenderness on palpation. Actively draining. Neuro: General: patient oriented x3 and moves all extremities Cranial nerves: Yes Equal, round and reactive pupils present Speech: normal speech Gait exam (Neuro): Normal gait present Extrem: General: normal to inspection, full ROM and no edema Psych: Appearance: grossly normal and well kempt Mental Status: mental status grossly normal Speech and movement: Normal speech and movement present Affect: normal affect Attitude: cooperative Thought process: Normal thought process present Course Course Emergency Course: Patient is aware of diagnosis, understands and agrees to treatment plan. Anticipatory guidance given. Patient agrees to follow-up as directed and is aware of reasons to seek care at the emergency department. Portions of this record may have been created with voice recognition software Level of Care: Express Care Visit Vital Signs Vital signs: Reviewed MDM - Wound/Laceration MDM Narrative Medical decision making narrative: Discussed the importance of following up with PCP and/or Dermatology for recurrent abscesses. Discussed photosensitivity side effects of doxycycline with patient. Culture obtained and sent off. Will repeat clindamycin but add doxycycline based on previous culture results Pt well hydrated appearing, in no respiratory distress, hemodynamically stable. Recommend supportive care. The patient is stable at time of discharge the clinical impression was discussed and the patient was given the opportunity to ask questions, which were addressed as completely as possible given the information available at present. Anticipatory guidance and return to care precautions were discussed and the importance of primary care follow-up was stressed and encouraged. The patient voiced understanding of the plan, indications to return, and the need for follow-up. Exam findings show no acute concerns or changes Patient is appropriate for outpatient treatment and follow-up. Differential Diagnosis Differential diagnosis: Likely abscess and other (Folliculitis, ingrown hair) Medical Records Attestation: I reviewed the patient's medical records. Discharge Plan Discharge Clinical Impression: Abscess Patient Disposition: Home Condition: Stable Instructions: Abscess (ED) Additional Instructions: DO NOT pick at the area. This will only make the area worse and drive infection deeper. Shower and wash with soapy water. Keep area clean and dry. Take all the antibiotics as prescribed. You have been prescribed Doxycycline today.It may make your skin more sensitive to sunlight than normal. Make sure you wear sunscreen at all times when outside while on the medication. Follow up with PCP in 7-10 days Return to Urgent care or go to the ER for worsened condition or Symptoms Tim blood pressure was elevated above 120/80 today at Urgent Care. This puts you above the threshold for follow up visit with a primary care provider. High blood pressure does not usually cause any symptoms, however it may lead to kidney failure, stroke, heart disease just to name a few if untreated . Many people are anxious when seeing a provider or nurse. As a result, you are not diagnosed with hypertension at this time unless your blood pressure is persistently high at two office visits at least one week apart. Some things that can help lower blood pressure are lifestyle modifications, such as light exercise, decreased salt in diet, and weight loss. It is important to follow up with a PCP about this within 1 week. Patient Language: Mexican Prescriptions: New clindamycin HCl 300 mg capsule 300 mg PO Q8H 10 Days Qty: 30 0RF doxycycline monohydrate 100 mg tablet 100 mg PO BID 10 Days Qty: 20 0RF No Action polymyxin B sulf-trimethoprim 10,000 unit- 1 mg/mL drops 1 drp RIGHT EYE Q3H 7 Days Qty: 10 0RF Rx Instructions: while awake; do not exceed 6 doses in 24 hours amlodipine 5 mg tablet clopidogrel 75 mg tablet 75 mg PO DAILY Xarelto 2.5 mg tablet 2.5 mg PO BID citalopram 20 mg tablet 20 mg PO DAILY Qty: 30 0RF (DME) blood-glucose meter [True Metrix Glucose Meter] Kit See Rx Instructions .Route Qty: 1 0RF Rx Instructions: As directed (DME) True Metrix Glucose Test Strip Strip See Rx Instructions .Route Qty: 100 0RF Rx Instructions: As directed (DME) lancets [TRUEplus Lancets] 30 gauge misc See Rx Instructions .Route Qty: 100 0RF Rx Instructions: As directed atorvastatin 80 mg tablet 80 mg PO HS Qty: 90 2RF metoprolol succinate 25 mg tablet extended release 24 hr See Rx Instructions .ROUTE .COMPLEX Qty: 15 5RF Dose Instruction: Take 1/2 (one-half) tablet by mouth once daily Rx Instructions: Take 1/2 (one-half) tablet by mouth once daily levothyroxine 125 mcg tablet See Rx Instructions .ROUTE .COMPLEX Qty: 90 2RF Dose Instruction: TAKE 1 TABLET BY MOUTH ONCE DAILY AT 6:30 AM Rx Instructions: TAKE 1 TABLET BY MOUTH ONCE DAILY AT 6:30 AM bupropion HCl 150 mg tablet extended release 24 hr See Rx Instructions .ROUTE .COMPLEX Qty: 90 2RF Dose Instruction: Take 1 tablet by mouth once daily Rx Instructions: Take 1 tablet by mouth once daily Januvia 50 mg tablet See Rx Instructions .ROUTE .COMPLEX Qty: 90 2RF Dose Instruction: TAKE 1 TABLET BY MOUTH EVERY DAY Rx Instructions: TAKE 1 TABLET BY MOUTH EVERY DAY Follow-up/Referrals: Ash Augustin MD [Primary Care Provider] - 3 Days Time of Disposition: 19:53
== END 2025-01-10 20:05 | disposition home or self-care (01) ==
PROVIDERS: Emergency Provider Nurse Practitioner Family; PCP Emergency Medicine
DX: L02.31 Cutaneous abscess of buttock (principal); Z87.891 Personal history of nicotine dependence; I12.9 Hypertensive chronic kidney disease with stage 1 through stage 4 chronic kidney disease, or unspecified chronic kidney disease; E11.22 Type 2 diabetes mellitus with diabetic chronic kidney disease; N18.30 Chronic kidney disease, stage 3 unspecified; Z79.84 Long term (current) use of oral hypoglycemic drugs; E11.51 Type 2 diabetes mellitus with diabetic peripheral angiopathy without gangrene; E11.40 Type 2 diabetes mellitus with diabetic neuropathy, unspecified; M10.9 Gout, unspecified; I73.9 Peripheral vascular disease, unspecified; F32.A Depression, unspecified; Z79.01 Long term (current) use of anticoagulants
CPT/HCPCS: 87070; 87075; 87181; 87205; 99213; G0463

== ENCOUNTER 2025-03-22 14:28 | Outpatient (CLI) | payer OTHER, SELFPAY ==
[2025-03-22 15:58] LABS: Cholesterol 210 mg/dL (0-200); HDL Direct 42 mg/dL; Triglycerides 280 mg/dL (<150)
--- OUTSIDE RECORDS SUMMARY | 2025-03-22 16:04 | XMS_ITS | Encounter Summary ---
Author Organization [facility] Facility Care Team Providers Care Live Ammunition Inspector Name Role Phone Ash Augustin MD Primary Care Provide r Malik Loev MD Unavailable Unknown, Notinfile Unavailable Unavailable Inge Chen MD PhD Unavailable [phone] Encounter Details Date Type Department Care Team (Latest Contact Info) Description 04/21/2016 Orders Only [facility] ProviderBernardino MD [address] [place], [place] [id number] Social History Tobacco Use Types Packs/Day Years Used Date Smoking Tobacco: Never Assessed Comments Unknown Sex and Gender Information Value Date Recorded Sex Assigned at Not on file 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 Historical Provider Final Res ult documented in this encounter Visit Diagnoses Not on filedocumented in this encounter Care Teams Live Ammunition Inspector Relationship Specialty Start Date End Date Ash Augustin MD [address] [place] [address] PCP - General Emergency Medicine 09/29/22 Malik Love MD [address] [place] [address] Cardiothoracic Surgery 10/21/22 Unknown, Notinfile 10/21/22 Inge Chen MD PhD [id number] [place] [address] Registered Nurse Vascular Surgery 07/22/23 documented as of this encounter
--- OUTSIDE RECORDS SUMMARY | 2025-03-22 16:04 | XMS_ITS | Encounter Summary ---
Author Organization [facility] Care Team Providers Care Exhibitions Curator Name Role Phone Ash Augustin MD Primary Care Provide r Malik Love MD Unavailable Unknown, Notinfile Unavailable Unavailable Inge Chen MD PhD Unavailable [phone] Encounter Details Date Type Department Care Team (Latest Contact Info) Description 11/23/2016 Orders Only [facility] ProviderBernardino MD [address] [place] [id number] Social History Tobacco Use Types Packs/Day Years Used Date Smoking Tobacco: Never Assessed Comments Unknown Sex and Gender Information Value Date Recorded Sex Assigned at Not on file Legal Sex Female 6:30 PM [employer] Gender Identity Not on file Sexual Orientation Not on file documented as of this encounter Plan of Treatment Not on file documented as of this encounter Procedures Procedure Name Priority Date/Time Associated Diagnosis Comments SCAN - LABS 03/03/2017 12:00 AM CDT SCAN - LABS 03/03/2017 12:00 AM CDT documented in this encounter Results * SCAN - LABS (03/03/2017 12:00 AM CDT) Narrative 03/03/2017 12:00 AM CDT Ordered by an unspecified provider. Historical Provider Final Res ult * SCAN - LABS (03/03/2017 12:00 AM CDT) Narrative 03/03/2017 12:00 AM CDT Ordered by an unspecified provider. us Historical Provider Final Res ult documented in this encounter Visit Diagnoses Not on filedocumented in this encounter Care Teams Exhibitions Curator Relationship Specialty Start Date End Date Ash Augustin MD [address] [place] [address] PCP - General Emergency Medicine 09/29/22 Malik Love MD [address] [place] [address] Cardiothoracic Surgery 10/21/22 Unknown, Notinfile 10/21/22 Inge Chen MD PhD [id number] [place] [address] Registered Nurse Vascular Surgery 07/22/23 documented as of this encounter
--- OUTSIDE RECORDS SUMMARY | 2025-03-22 16:04 | XMS_ITS | Clinical Summary ---
Author Organization [facility] Address [address] [place] [address] Care Team Providers Care Cheese Blender Name Role Phone Ash Augustin MD Primary Care Provide r Malik Love MD Unavailable [phone] Unknown, Notinfile Unavailable Unavailable Inge Chen MD PhD Unavailable [phone] Allergies Active Allergy Reactions Criticality Noted Date Comments Dangelo Inhibitors Cough Low 11/17/2022 Hydrocodone Unknown Low 09/29/2022 Penicillins Rash Medium 09/29/2022 Medications citalopram (CeleXA) 20 mg tabletIndicatio ns:Anxiety with Depression Take 1 tablet (20 mg total) by mouth every morning Active gabapentin (NEURONTIN) 300 mg capsuleIndicati ons:Neuropathic Pain Take 2 capsules (600 mg total) by mouth 2 (two) times a day Active levothyroxine (SYNTHROID) 125 mcg tabletIndicatio ns:hypothyroidi sm Take 1 tablet (125 mcg total) 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 before 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 Active amLODIPine (NORVASC) 5 mg tablet Take 1 tablet (5 mg total) by mouth daily 30 tablet 1 3 Active Additional Information Patient taking differently:5 mg oralEvery morning, Indications: hypertension, Informant: Self, Reported on 09/14/2023 atorvastatin (LIPITOR) 80 mg tablet Take 1 tablet (80 mg total) by mouth nightly 30 tablet 11 3 Active Additional Information Patient taking differently:80 mg oral Nightly,Indications: hyperlipidemia, Informant: Self, Reported on 09/14/2023 metoprolol XL (TOPROL-XL) 25 mg extended release tablet Take 0.5 tablets (12.5 mg total) by mouth daily 15 tablet 11 3 Active Additional Information Patient taking differently:12.5 mg oral2 times daily, Indications: hypertension, Informant: Self, Reported on 09/14/2023 buPROPion XL (WELLBUTRIN XL) 150 mg 24 hr tablet Take 1 tablet (150 mg total) by mouth daily 30 tablet 11 3 Active Additional Information Patient taking differently:150 mg oralEvery morning, Indications: Anxiety with Depression, Informant: Self, Reported on 09/14/2023 OneTouch Verio test strips strip TEST DIRECTED 3 Active OneTouch Verio Reflect Meter misc as directed 3 Active OneTouch Delica Plus Lancet 30 gauge misc as directed 3 Active glipiZIDE XL (GLUCOTROL XL) 5 mg 24 hr tabletIndicatio ns:type 2 diabetes mellitus Take 1 tablet (5 mg total) by mouth every morning Active acetaminophen 500 mg capsule Take 2 capsules (1,000 mg total) by mouth every 6 (six) hours as needed for pain 4 Active cholecalciferol , vitamin D3, (VITAMIN D3 ORAL)Indication s:supplement Take 1 tablet by mouth every morning Active cyanocobalamin, vitamin B-12, (VITAMIN B-12 ORAL)Indication s:supplement Take 1 tablet by mouth every morning Active MAGNESIUM ORALIndications :supplement Take 1 tablet by mouth every morning Active furosemide (LASIX) 20 mg tablet Take 1 tablet (20 mg total) by mouth daily 4 Active oxyCODONE (ROXICODONE) 5 mg immediate release tabletIndicatio ns:Pain Take 1 tablet (5 mg total) by mouth every 4 (four) hours as needed for pain 10 tablet 4 Active clopidogreL (PLAVIX) 75 mg tabletIndicatio ns:Bypass surgery Take 1 tablet (75 mg total) by mouth every morning 90 tablet 3 4 Active rivaroxaban (Xarelto) 2.5 mg tabletIndicatio ns:PVD (peripheral vascular disease),Critic al limb ischemia of left lower extremity (HCC) Take 1 tablet (2.5 mg total) by mouth 2 (two) times a day 180 tablet 3 4 Active Active Problems Problem Noted Date Diagnosed Date Intermittent claudication of left lower extremity due to atherosclerosis 09/21/2023 Atherosclerosis of [place] ar didi of left lower extremity with intermittent claudication 09/01/2023 Assessment & Plan (09/21/2023 7:26 PM HEAD OF ENGLISH): Hx of 07/2023 left lower extremity angiogram with angioplasty to the left popliteal artery and PT for occlusive disease. Now presenting with ongoing claudication and severe residual stenosis of the left SFA. - OR 3/4 for angiogram with SFA balloon angioplasty, and AT CSI and balloon angioplasty - On outpatient aspirin and Xarelto 2.5mg BID, however trouble affording these medications. - Q2 hour NV monitoring. - Advance diet as tolerated. - Bedrest per protocol. - Plavix in PACU, Xarelto in 48 hours Ischemia of foot 07/21/2023 PVD (peripheral vascular disease) 07/16/2023 Critical limb ischemia of left lower extremity 1 09/16/2022 PAD (peripheral artery disease) 07/15/2023 Assessment & Plan (07/21/2023 1:19 PM HEAD OF ENGLISH): - Presents with L foot rest pain and violaceous discoloration for 4 days, worst in 1-2 days. Subjective paresthesias but sensory and motor intact on exam. - CTAIF complete - Planning OR Friday 07/21 for fem-pop bypass. She has been back and forth about staying inpatient until OR. Insisted on leaving 07/16 so 7 days lovenox was vouchered w/ plans for her to return Thursday. She has since agreed to stay. If she does plan to leave again, Lovenox already sent to pharmacy. - Arterial duplex, vein mapping and TTE complete - IPAP consult complete - Q2 hr NV checks - Pain control - Continue ASA and Statin - 1/2: s/p Left left Angiogram and Angioplasty of popiteal artery, TP trunk, and posterior tibial artery - Plavix daily, no heparin gtt. Start Xarelto POD #1 - Flat x6 hrs, bedrest overnight - Q4 hr NV exam Pain 10/15/2022 Assessment & Plan (10/18/2022 1:04 PM CDT): Expected postoperative pain Continue santy Tylenol Continue PRN oxy Assessment & Plan (10/17/2022 1:46 PM CDT): Expected postoperative pain Continue santy Tylenol Continue PRN oxy Coronary artery disease involving [place] coronar y artery 09/29/2022 Assessment & Plan (09/21/2023 10:43 AM HEAD OF ENGLISH): - s/p CABG 11/09 - continue asa/statin, BB Assessment & Plan (07/16/2023 9:20 AM HEAD OF ENGLISH): - s/p CABG 11/09 - continue asa, metoprolol. Not on atorvastatin since 04/18/23 Assessment & Plan (10/20/2022 12:45 PM CDT): S/p CABG x 3 on 10/10/22 Continue ASA, statin and Metoprolol Continue Furosemide per renal recommendations Monitor Daily weights Strict intake and output Heparin SQ for DVT prophylaxis Bowel regimen PT/OT Wires capped and insulated - V wire only CT removed Purulent/yellow drainage to prior CT site, Dr. Love aware, started Keflex yesterday for prophylactic coverage-WBC 8.0 CT site appears more purulent- patient refusing IV abx , placed back on PO Assessment & Plan (10/17/2022 1:45 PM CDT): S/p CABG x 3 Continue ASA, statine Holding beta sue as HR 60s Continue diuresis as above Daily weights Strict intake and output Heparin SQ for DVT prophylaxis Bowel regimen PT/OT Wires capped and insulated - V wire only CT removed Discharge planning Anxiety and depression 09/29/2022 Assessment & Plan (07/15/2023 12:44 PM HEAD OF ENGLISH): - continue home wellbutrin and celexa Assessment & Plan (10/18/2022 1:02 PM CDT): Continue home Wellbutrin and Celexa Provide support, offer counseling Continue Hydroxyzine PRN Assessment & Plan (10/09/2022 11:42 AM CDT): Continue home Wellbutrin and Celexa Provide support, offer counseling Continue Hydroxyzine PRN Chronic systolic heart failure 09/29/2022 Assessment & Plan (09/21/2023 10:43 AM HEAD OF ENGLISH): - TTE (09/2022): Mildly decreased LV systolic function with LVEF ~45-50%. Inferior wall hypokinesis. Normal RV size and function. Trace MR. No AI, TR, PFO, ALMA thrombus or aortic dissection. - Repeat TTE 07/16: Mild concentric LV hypertrophy. Low normal LV systolic function. LVEF 50-55%. Hypokinesis of basal inferior and inferoseptal wall. Grade 2 DD. - Continue home metoprolol and lasix Assessment & Plan (07/21/2023 1:34 PM HEAD OF ENGLISH): - TTE (09/2022): Mildly decreased LV systolic function with LVEF ~45-50%. Inferior wall hypokinesis. Normal RV size and function. Trace MR. No AI, TR, PFO, ALMA thrombus or aortic dissection. - Repeat TTE 07/16: Mild concentric LV hypertrophy. Low normal LV systolic function. LVEF 50-55%. Hypokinesis of basal inferior and inferoseptal wall. Grade 2 DD. - Continue home metoprolol, holding lasix - monitor I&O, weights Assessment & Plan (10/18/2022 1:03 PM CDT): TTE 09/27 EF 35-40%, basal to apical inferoposterior and lateral huston severely hypokinetic, moderate LVH, grade 1 diastolic dysfunction, mild LAE, mild MR Holding ACEi/ARB for renal protection Monitor intake and output Daily weights Repeat TTE here preoperatively showed EF 55% no effusion, no AR, trace MR, no , no mitral stenosis, normal TV Continue Metoprolol, low-dose due to prior bradycardia Low sodium diet Assessment & Plan (10/17/2022 1:41 PM CDT): TTE 09/27 EF 35-40%, basal to apical inferoposterior and lateral huston severely hypokinetic, moderate LVH, grade 1 diastolic dysfunction, mild LAE, mild MR Holding beta sue as HR 60s Holding ACEi/ARB blaise op Monitor intake and output Daily weights Repeat TTE here preoperatively showed EF 55% no effusion, no AR, trace MR, no , no mitral stenosis, normal TV Low sodium diet Other specified hypothyroidism 08/29/2018 Assessment & Plan (10/18/2022 1:03 PM CDT): Admit TSH 24.7 and Free T4 0.99 Continue home Levothyroxine Assessment & Plan (10/09/2022 11:46 AM CDT): Admit TSH 24.7 and Free T4 0.99 Continue home Levothyroxine Hypertensive chronic kidney disease with stage 1 through stage 4 chronic kidney disease, or unspecified chronic kidney disease 08/29/2018 Chronic kidney disease, stage 4 (severe) 016 Assessment & Plan (09/21/2023 10:42 AM HEAD OF ENGLISH): Patient discharged in July with creatinine of 3.07 (presented at 3.5). - Check BMP this admission. - Monitor urine output and BMP Assessment & Plan (07/21/2023 1:32 PM HEAD OF ENGLISH): - Cr 2.7 POA, improved from 3.5 (09/2022) - Avoid hypotension and nephrotoxic medications - Cr up trended to 3.01 from admission - monitor BMP Assessment & Plan (10/20/2022 12:46 PM CDT): -On admission to OSH on 09/27 sCr was 2.8 mg/dL and received fluid challenge without any significant improvement. -Creat peaked at 3.58 preoperatively and 4.06 after surgery -Renal US - normal kidneys without hydronephrosis -Monitor daily BMP -Monitor Intake and output -Daily weights -Chronic kidney disease appears to be secondary to microvascular disease from hypertension and diabetes -Remains non-oliguric - voiding but not measured -Avoid nephrotoxins -Nephrology consulted, appreciate recs -Creat level down-trending- 2.7 today -Renal and Dr. Kate rivas with starting Lasix 20mg po daily -renal would like goal net neg -500ml, monitor Assessment & Plan (10/17/2022 1:44 PM CDT): -On admission to OSH on 09/27 sCr was 2.8 mg/dL and received fluid challenge without any significant improvement. -Creat peaked at 3.58 preoperatively and 4.06 after surgery -Renal US - normal kidneys without hydronephrosis -Monitor daily BMP -Monitor Intake and output -Daily weights -Chronic kidney disease appears to be secondary to microvascular disease from hypertension and diabetes -Remains non-oliguric - voiding but not measured -Avoid nephrotoxins -Nephrology consulted, appreciate recs -Creat level down-trending from 3.9 - today 3.15 -Renal and Dr. Kate rivas with starting Lasix 20mg po daily -renal would like goal net neg -500ml, I&O charting inconsistent - voided 5 times but not measured Type 2 diabetes mellitus 02/11/2016 Assessment & Plan (09/21/2023 10:42 AM HEAD OF ENGLISH): Home regimen: actos, glipizide and SSI. - Continue SSI while inpatient. Hold oral regimen. - Continued home regimen at discharge. Assessment & Plan (07/16/2023 9:20 AM HEAD OF ENGLISH): Home regimen: SSI, Actos and glipizide per PCP office - Hold home regimen - Basal bolus while inpatient per protocol - Carb consistent diet when eating Assessment & Plan (10/20/2022 12:43 PM CDT): A1C on admission- 7.9 Hold home Januvia while inpatient Consistent carb diet SSI ordered diabetic education prior to discharge Assessment & Plan (10/17/2022 1:46 PM CDT): A1C on admission- 7.9 Hold home Januvia while inpatient Consistent carb diet SSI Needs diabetic education prior to discharge Type 2 diabetes mellitus wit h other diabetic kidney complication 02/11/2016 Assessment & Plan (10/08/2022 2:42 PM CDT): Continue home gabapentin Denies LE pain this morning Dyslipidemia 02/11/2016 Assessment & Plan (10/18/2022 12:57 PM CDT): Lipid panel on admission: Total Chol 181, HDL 50, LDL 83, Trigs 240 Continue Atorvastatin Continue low fat diet Assessment & Plan (10/09/2022 11:45 AM CDT): Lipid panel on admission: Total Chol 181, HDL 50, LDL 83, Trigs 240 Continue Atorvastatin Continue low fat diet Hypertension 02/11/2016 Assessment & Plan (09/21/2023 10:43 AM HEAD OF ENGLISH): - Home regimen:amlodipine, lasix, metorprolol - Continue home meds as able. Assessment & Plan (07/21/2023 1:33 PM HEAD OF ENGLISH): - VS Q4 hrs and PRN - Home regimen:amlodipine 5, lasix 20, metoprolol XL 12.5 - continue amlodipine and metoprolol. - Lasix on hold for NPO, resume as needed. Assessment & Plan (10/18/2022 12:58 PM CDT): On no BP medications at home prior to admission Previously on Lisinopril and Amlodipine but hadn't been reordered for ~5 months Presented to OSH ED with BP ~200/100 Continue Amlodipine and Metoprolol Monitor VS Q4 Continue low sodium diet Assessment & Plan (10/17/2022 1:46 PM CDT): Currently on no BP medications at home Previously on Lisinopril and Amlodipine but hadn't been reordered for ~5 months Presented to OSH ED with BP ~200/100 Holding beta sue for HR 60s Hydralazine PRN for SBP>140 mmHG Consider norvasc Monitor VS Q4 Resolved Problems Problem Noted Date Diagnosed Date Resolved Date Carotid artery stenosis 10/01/2022 04/0 07/2022 Assessment & Plan (10/18/2022 1:03 PM CDT): Carotids done bilaterally 09/30 Carotid stenosis noted 50-69% bilaterally No Vascular consult at this time per Dr. Love Consider outpatient follow up Assessment & Plan (10/01/2022 1:03 PM CDT): Carotids done bilaterally 09/30 Carotid stenosis noted 50-69% bilaterally No Vascular consult at this time per Dr. Love Consider outpatient follow up Encounters Date Type Department Care Team Description 01/18/2025 Telephone [facility] Medicine Surgery [address] [place] [address] Karime Mcgraw Appointment 01/18/2025 Orders Only [facility] Medicine Surgery [address] [place] [address] Inge Chen MD PhD Encounter for surgical aftercare following surgery on the circulatory system (Primary Dx) from Last 3 Months Immunizations Immunization Administration Dates Next Due Influenza, Quadrivalent, Spl it, Preservative Free, Intramuscular 09/22/2023,07/22/2023(Deferred: Other - pt refused-- said she will get vaccine at [facility] at a later date),03/27/2022,05/29/2021 Tdap 11/15/2019 Surgical History Surgery Date Site/Laterality Comments TONSILLECTOMY AND ADENOIDECTOMY childhood ANGIOPLASTY Left MARKETING DIRECTOR ASSISTED LIVING LLE CORONARY ARTERY BYPASS GRAFT 07/20/2022 - 07/19/2023 Medical History Medical History Date Comments Chronic kidney disease Chronic back pain Anxiety and depression Hyperlipidemia Hypertension Thyroid disease Peripheral vascular disease CAD (coronary artery disease) Family History Medical History Relation Name Comments Cancer Mother Anesthesia problems Neg Hx Malig Hypertension Neg Hx Malig Hyperthermia Neg Hx Pseudochol deficiency Neg Hx Relation Name Status Comments Mother Social History Tobacco Use Types Packs/Day Years Used Date Smoking Tobacco: Former Cigarettes Q uit: 09/26/2022 Smokeless Tobacco: Never Tobacco Cessation:Counseling Given: Not Answered AUDIT-C Answer Date Recorded Q1: How often do you have a drink containing alc ohol? Monthly or less 09/21/2023 Q2: How many drinks containi ng alcohol do you have on a typical day when you are drinking? 3 or 4 09/21/2023 Q3: How often do you have si x or more drinks on one occasion? Never 09/21/2023 Personal Safety Answer Date Recorded Have you ever been in or are you currently in a harmful physical or emotional relationship or is someone making you feel afraid or unsafe? Denies 09/21/2023 Comments No Sex and Gender Information Value Date Recorded Sex Assigned at Not on file Legal Sex Female 6:30 PM HEAD OF ENGLISH Gender Identity Not on file Sexual Orientation Not on file Obstetrics History Last Filed Vital Signs Vital Sign Reading Time Taken Comments Blood Pressure 125/62 09/22/2023 8:10 AM HEAD OF ENGLISH Pulse 59 09/22/2023 8:10 AM HEAD OF ENGLISH Temperature 36.8 C (98.2 F) 09/22/2023 7:47 AM HEAD OF ENGLISH Respiratory Rate 14 09/22/2023 7:47 AM HEAD OF ENGLISH Oxygen Saturation 100% 09/22/2023 8:10 AM HEAD OF ENGLISH Inhaled Oxygen Concentration - - Weight 72.6 kg (160 lb) 09/22/2023 12:35 PM HEAD OF ENGLISH Height 162.6 cm (5' 4) 09/22/2023 12:35 PM HEAD OF ENGLISH Body Mass Index 27.46 09/22/2023 12:35 PM HEAD OF ENGLISH Plan of Treatment Health Maintenance Due Date Last Done Comments Albumin Creatinine Ratio, Urine 1960 Breast Cancer Screening-Mammogram 1960 Cervical Cancer Screening 1960 Colon Cancer Screening-Colonoscopy 1960 Depression Screening 1960 Hepatitis C Screening 1960 Dilated Eye Exam 1960 Foot Exam 1960 Hepatitis B Screening 1978 Regular Well Visit/Exam 18-64 1978 Pneumococcal vaccine <65 (1 of 2 - PCV) 10/24/1979 Zoster Vaccine (1 of 2) 2010 Hemoglobin A1C 04/01/2023 09/29/2022 Lipid Panel 09/30/2023 09/29/2022 eGFR 09/21/2024 09/22/2023, 03/0 10/2023, 07/22/2023, Additional history exists Covid-19 Vaccine (2024-2 6 season) 2025 07/24/2021, 11/03/2020, 10/14/2020 Influenza Vaccine (#1) 2025 4, 03/27/2022, 05/29/2021 DTaP/Tdap/Td Vaccine (2 - Td or Tdap) 11/14/2029 11/15/2019 Medical Devices Implanted Type Area Front Desk Manager Device Identifier Shelf Expiration Date Model / Serial / Lot [employer] End[employer] Surgery Ligaclip Extra 2.6mm Ligate Open Small Clip Internal Titanium Latex Free Lt100 - [id number] Implanted:Qty : 4 on 10/10/2022 by Malik Love MD at [facility] N/A: Chest [employer] Surgery [id number] 06/18/2027 [id number] / / Procedures Procedure Name Priority Date/Time Associated Diagnosis Comments EGFR Routine 09/22/2023 4:51 AM HEAD OF ENGLISH HEMOGLOBIN A1C Routine 09/29/2022 10:02 PM CDT LIPID PANEL STAT 09/29/2022 10:02 PM CDT from Last 3 Months or Most Recently Relevant to Health Maintenance Results * (ABNORMAL) eGFR (09/22/2023 4:51 AM HEAD OF ENGLISH) eGFR 14(L) >=60 mL/min/1. 73 m2 [facility] Comment: Interpretive Data Reference Interval Normal >/= 90 mL/min/1.73m2 Mildly decreased* 60 - 89 mL/min/1.73m2 Mildly to moderately decreased 45 - 59 mL/min/1.73m2 Moderately to severely decreased 30 - 44 mL/min/1.73m2 Severely decreased 15 - 29 mL/min/1.73m2 Kidney Failure < 15 mL/min/1.73m2 *Relative to young adult level Estimated glomerular filtration rate is determined by the 2020 CKD-EPI equation recommended by the National Kidney Foundation (A Unifying Approach to GFR Estimation: Recommendations of the NKF-ASK Task Force on Reassessing the Inclusion of Race in Diagnosing Kidney Disease, JASN 2020). The CKD-EPI equation should not be used for patients with unstable renal function and has not been validated in children and those over 70. Current interpretive data was last reviewed 2021. Blood 09/22/2023 4:51 AM HEAD OF ENGLISH 09/22/2023 5:39 AM HEAD OF ENGLISH Result [facility] Inge Chen MD PhD LAB BLOOD ORDERABLES F inal Result Performing Organization Address [facility] de Phone Number [facility] [address] [facility] Department [place] [address] * (ABNORMAL) Hemoglobin A1c (09/29/2022 10:02 PM CDT) Hgb A1C 7.9(H) 4.0 - 5.6 % [facility] Estimated Average Glucose 180 mg/dL [facility] Comment: The ADA recommends reporting an estimated Average Glucose (eAG) with all Hemoglobin A1c results using the equation derived from a study of 507 normal and diabetic adults. Minority populations were underrepresented and children were not included. (Diabetes Care 2020; 43(S1): S66-S76). The eAG is not equivalent to a fasting glucose. Blood 09/29/2022 10:0 2 PM CDT 09/29/2022 10:40 PM CDT Result [facility] Tanisha Carmona NP LAB BLOOD ORDERABLES Final Result Performing Organization Address [facility] de Phone Number [facility] [address] [facility] Department [place] [address] * (ABNORMAL) Lipid panel (09/29/2022 10:02 PM CDT) Cholesterol 181 30 - 199 mg/dL [facility] Comment: Interpretive Data Ages < or = 19 years Acceptable: <170 mg/dL Borderline high: 170-199 mg/dL High: >or= 200 mg/dL Ages > or = 20 years Desirable: <200 mg/dL Borderline high: 200-239 mg/dL High: >or= 240 mg/dL Literature References: 1. Expert Panel on Integrated Guidelines for Cardiovascular Health and Risk Reduction in Children and Adolescents. Pediatrics 2011;128:S213 2. NCEP Expert Panel. Circulation 2004;110:227 Current Interpretive Data was last revised on 2018. Triglycerides 240(H) <=149 mg/dL [facility] Comment: Interpretive Data Ages < or = 9 years Acceptable: <75 mg/dL Borderline high: 75-99 mg/dL High: >or= 100 mg/dL Ages 10 to 20 years Acceptable: <90 mg/dL Borderline high: 90-129 mg/dL High: >or= 130 mg/dL Ages > or = 20 years Desirable: <150 mg/dL Borderline high: 150-199 mg/dL High: 200-499 mg/dL Very high: >or= 499 mg/dL Literature References: 1. Expert Panel on Integrated Guidelines for Cardiovascular Health and Risk Reduction in Children and Adolescents. Pediatrics 2011;128:S213 2. NCEP Expert Panel. Circulation 2004;110:227 Current Interpretive Data was last revised on 2018. HDL 50 >=40 mg/dL [facility] Comment: Interpretive Data Ages < or = 19 years Acceptable: >45 mg/dL Borderline low: 40-45 mg/dL Low: <40 mg/dL Ages > or = 20 years Desirable: >or= 60 mg/dL Low: <40 mg/dL Literature References: 1. Expert Panel on Integrated Guidelines for Cardiovascular Health and Risk Reduction in Children and Adolescents. Pediatrics 2011;128:S213 2. NCEP Expert Panel. Circulation 2004;110:227 Current Interpretive Data was last revised on 2018. LDL, calculated 83 <=129 mg/dL [facility] Comment: Interpretive Data Ages < or = 19 years Acceptable: <110 mg/dL Borderline high: 110-129 mg/dL High: >or= 130 mg/dL Ages > or = 20 years Optimal: <100 mg/dL Near optimal: 100-129 mg/dL Borderline high: 130-159 mg/dL High: >160 mg/dL Literature References: 1. Expert Panel on Integrated Guidelines for Cardiovascular Health and Risk Reduction in Children and Adolescents. Pediatrics 2011;128:S213 2. NCEP Expert Panel. Circulation 2004;110:227 Current Interpretive Data was last revised on 2018. Non-HDL Cholesterol 131 mg/dL [facility] Comment: Interpretive Data Ages < or = 19 years Acceptable: <120 mg/dL Borderline high: 120-144 mg/dL High: >145 mg/dL Ages > or = 20 years When triglycerides are >200 mg/dL, Non-HDL cholesterol is a secondary target of therapy with treatment goals that are 30 mg/dL greater than the LDL cholesterol target. Literature References: 1. Expert Panel on Integrated Guidelines for Cardiovascular Health and Risk Reduction in Children and Adolescents. Pediatrics 2011;128:S213 2. NCEP Expert Panel. Circulation 2004;110:227 Current Interpretive Data was last revised on 2018. Chol/HDL ratio 4 [facility] Blood 09/29/2022 10:0 2 PM CDT 09/29/2022 10:40 PM CDT Olga Meyer NP LAB BLOOD ORDERABLES Final Result [facility] [address] [facility] [place] [address] from Last 3 Months or Most Recently Relevant to Health Maintenance Insurance [facility] [employer] Advance Directives For more information, please contact: [phone] Documents on File Type Date Recorded Patient Head Of Geography Expl anation ADVANCE DIRECTIVE 01/23/2023 9:58 AM Power of [employer] [place] ADVANCE DIRECTIVE 10/10/2022 7:43 PM POWER OF COMMISSION SPECIALIST-MEDICAL * Full Code (Latest Code Status on File) Date Activated Date Inactivated Comments 09/21/2023 7:15 PM 09/22/2023 5:35 PM * Full Code Date Activated Date Inactivated Comments 07/15/2023 12:32 PM 07/22/2023 7:55 PM * Full Code Date Activated Date Inactivated Comments 09/29/2022 9:05 PM 10/21/2022 6:24 PM Care Teams Cheese Blender Relationship Specialty Start Date End Date Ash Augustin MD [address] [place] [address] PCP - General Emergency Medicine 09/29/22 Malik Love MD [address] [place] [address] Cardiothoracic Surgery 10/21/22 Unknown, Notinfile 10/21/22 Inge Chen MD PhD [id number] [place] [address] Registered Nurse Vascular Surgery 07/22/23
--- OUTSIDE RECORDS SUMMARY | 2025-03-22 16:04 | XMS_ITS | Clinical Summary ---
Author Organization [facility] Address [address] [place] [address] Phone Care Team Providers Care Receiving Room Clerk Name Role Phone Unavailable Primary Care Provider Unavailabl e Medications citalopram (CeleXA) 20 MG tablet 1 qday 0 08/29/2018 Active naproxen (NAPROSYN) 500 MG tablet 1 qday 0 08/29/2018 Active metFORMIN (GLUCOPHAGE) 500 MG tablet 4 qday 0 08/29/2018 Active glipiZIDE (GLUCOTROL XL) 10 MG 24 hr tablet 1 qday 0 08/29/2018 Active levothyroxine (SYNTHROID, LEVOTHROID) 125 MCG tablet 1 qday 0 08/29/2018 Active traMADol (ULTRAM) 50 MG tablet 1 qid PRN 0 08/29/2018 Active losartan-hydroCH LOROthiazide (HYZAAR) 50-12.5 MG per tablet 1 qday 0 08/29/2018 Activ e SITagliptin (JANUVIA) 50 MG tablet 1 qday 0 08/29/2018 Active gabapentin (NEURONTIN) 300 MG capsule 3 tid 0 08/29/2018 Active Active Problems Problem Noted Date Diagnosed Date Chronic kidney disease, stage 4 (severe) 019 Type 2 diabetes mellitus wit h other diabetic kidney complication 08/29/2018 Other specified hypothyroidism 08/29/2018 Hypertensive chronic kidney disease with stage 1 through stage 4 chronic kidney disease, or unspecified chronic kidney disease 08/29/2018 Family History Medical History Relation Comments Malignant neoplastic disease Mother Kidney disease Neg Hx Kidney stone Neg Hx Relation Status Comments Mother Social History Tobacco Use Types Packs/Day Years Used Date Smoking Tobacco: Never Assessed Comments Unknown Sex and Gender Information Value Date Recorded Sex Assigned at Not on file Legal Sex Female 8:34 AM MST Gender Identity Not on file Sexual Orientation Not on file Plan of Treatment Not on file
[2025-03-22 16:34] LABS: Thyroid Stimulating Hormone 0.840 uIU/mL (0.465-4.680)
[2025-03-22 16:54] LABS: MALB Creatinine Ratio > 1417.9 mg/g (0-30)
[2025-03-22 17:12] LABS: Hemoglobin A1C 6.2 % (<5.7)
== END 2025-03-22 14:29 | disposition home or self-care (01) ==
LOC: ANHLAB 14:32
PROVIDERS: PCP Emergency Medicine; Visit Provider Emergency Medicine
DX: E55.9 Vitamin D deficiency, unspecified (principal); E78.5 Hyperlipidemia, unspecified; E11.9 Type 2 diabetes mellitus without complications; E03.9 Hypothyroidism, unspecified
CPT/HCPCS: 36415; 80061; 82043; 82306; 83036; 84443